=== PATIENT | female | born 1985 | race Caucasian/White ===

== ENCOUNTER → 2018-06-26 | Outpatient (CLI) | payer OTHER, SELFPAY ==
[2018-06-26 11:10] VITALS: BMI 27.6
[2018-07-03 11:22] LABS: HPV APTIMA, High Risk Negative (Negative)
== END | disposition home or self-care (01) ==
PROVIDERS: Family Provider Family Medicine; PCP Family Medicine; Visit Provider Nurse Practitioner Women's Health
DX: Z12.4 Encounter for screening for malignant neoplasm of cervix (principal)
CPT/HCPCS: 87624; 88175; G0145

== ENCOUNTER → 2020-01-04 | Outpatient (CLI) | payer OTHER, SELFPAY ==
[2019-12-27 08:33] VITALS: BMI 24.6
--- NOTE | 2020-01-04 09:01 | BI_ITS ---
MAMMOGRAPHY - BILATERAL DIAGNOSTIC REASON FOR EXAM: Female, 34 years old. One-year history of left breast lump. Occasional tenderness. PERTINENT HISTORY: Non-contributory. TECHNIQUE: Digital bilateral breast christi (3D mammographic acquisition) in the CC and MLO projections. 2-D mediolateral oblique (MLO) and craniocaudad (CC) views of both breasts were obtained. CAD: Full Field Digital Mammography with Computer Added Detection was performed. COMPARISON: None. Baseline examination. FINDINGS: Breast Composition: The breasts are extremely dense, which lowers the sensitivity of mammography. There are no dominant masses or suspicious calcifications. No other significant abnormalities are identified. BI/DIAG MAMM W/CAD, BILAT IMPRESSION: Negative diagnostic mammogram. With the patient''s history of a tender left breast lump, correlation with ultrasound is recommended. ASSESSMENT CATEGORY: BIRADS Category 0: Incomplete. Need additional imaging evaluation. A letter regarding these results will be sent to the patient by the facility within 30 days. Approximately 10% of breast cancers are not detected by mammography. A normal mammogram should not delay biopsy of a clinically suspicious abnormality. Electronically Signed: Darek Quesada, at 10:14 EDT , Service support ,
--- NOTE | 2020-01-04 09:01 | US_ITS ---
STUDY: ULTRASOUND BREAST - LEFT REASON FOR EXAM: Female, 34 years old. Palpable lump left breast. TECHNIQUE: Axial and longitudinal images of the LEFT breast were performed with a high resolution ultrasound transducer. # OF IMAGES: 13 COMPARISON: None. FINDINGS: LEFT Breast: The palpable abnormality corresponds to a 1.2 cm x 1 cm x 0.6 cm well-defined hypoechoic solid nodule at the 1 o''clock position of the breast at 3 cm from nipple. This most likely represents a fibroadenoma. Biopsy is recommended. US/Breast Limited Unilateral IMPRESSION: The palpable abnormality corresponds to a well-defined hypoechoic solid nodule measuring 1.2 cm x 1 cm x 0.6 cm. Tissue diagnosis is recommended. ASSESSMENT CATEGORY: BIRADS Category 4: Suspicious - Biopsy Should Be Considered. A letter regarding these results will be sent to the patient by the facility within 30 days. Electronically Signed: Darek Quesada, at 15:25 EDT , Service support ,
== END | disposition home or self-care (01) ==
LOC: OPBI 09:00
PROVIDERS: PCP Family Medicine; Referring Provider Nurse Practitioner Women's Health; Visit Provider Nurse Practitioner Women's Health
DX: N63.20 Unspecified lump in the left breast, unspecified quadrant (principal)
CPT/HCPCS: 76642; 77062; 77066; G0279

== ENCOUNTER → 2020-05-01 10:22 | Outpatient (CLI) | payer OTHER, SELFPAY ==
[2020-05-01 09:51] VITALS: BMI 24.7
[2020-05-01 10:46] LABS: Absolute Lymphocyte Count 1.98 X10^3/uL (0.83-4.51); Absolute Neutrophil Count 2.3 X10^3/uL (2.0-7.7); Basophil# 0.06 X10^3/uL; Basophil% 1.2 % (0-1); Eosinophil# 0.29 X10^3/uL; Eosinophils% 5.7 % (0-5); Hematocrit 40.2 % (37-47); Lymphocyte # 1.98 X10^3/ul (4.0); Lymphocyte % 39.1 % (19-41); Mean Corp Hgb Conc 32.3 g/dL (32-36); Mean Corpuscular Hgb 29.3 pg (27.0-32.0); Mean Corpuscular Volume 90.5 fL (81-99); Mean Platelet Vol. 9.7 fl (6.2-12.0); Monocyte# 0.41 X10^3/uL; Monocyte% 8.1 % (0-10); NRBC Flagged by Analyzer 0 % (0-5); Neutrophil # 2.31 X10^3/uL (2.7-7.7); Neutrophil % 45.7 % (47-70); Platelet Count 352 K/mm3 (150-450); RBC Distribution Width CV 13.4 % (11.6-14.6); RBC Distribution Width SD 44.6 fl (35.1-43.9); Red Blood Count 4.44 M/mm3 (4.2-5.4); White Blood Count 5.1 K/mm3 (4.4-11.0)
[2020-05-01 11:07] LABS: Hemoglobin A1c 5.1 % (3.8-5.6)
[2020-05-01 11:26] LABS: T3 Total - Triiodothyronine 0.88 ng/mL (0.6-1.81); Vitamin D,25 Hydroxy 22.6 ng/mL
[2020-05-01 11:44] LABS: ALB/GLOB Ratio 1.3 RATIO (0.9-2.4); AST(SGOT) 19 U/L (15-37); Alanine Aminotransfer ALT/SGPT 23 U/L (13-56); Albumin, Serum 4.5 g/dL (3.2-5.0); Alkaline Phosphatase 50 U/L (45-117); Anion Gap 5 (5-15); BUN 11 mg/dL (7-18); BUN/Creat Ratio 13.6 RATIO (10-20); Bilirubin, Direct 0.09 mg/dL (0.00-0.30); Calcium,Total 9.6 mg/dL (8.5-10.1); Chloride 104 mmol/L (98-107); Cholesterol 266 mg/dL (200); Creatinine, Serum 0.81 mg/dL (0.55-1.02); EST Glomerular Filtration Rate 87 mL/min (>60); Est Glom Filt Rate - Afr Amer 105 mL/min (>60); Globulin 3.4 g/dL (2.2-4.2); Glucose 89 mg/dL (74-106); High Density Lipoprotein 100 mg/dL; Potassium 4.2 mmol/L (3.5-5.1); Protein, Total 7.9 g/dL (6.4-8.2); Sodium Level 138 mmol/L (136-145); T4 Total, Thyroxin 7.1 ug/dL (4.8-13.9); Thyroid Stim Hormone (TSH) 0.95 uIU/mL (0.358-3.74); Triglycerides 86 mg/dL; Very Low Density Lipoprotein 17 mg/dL (5-40)
== END ==
PROVIDERS: PCP Family Medicine
DX: Z79.899 Other long term (current) drug therapy (principal)
CPT/HCPCS: 36415; 80053; 80061; 82248; 82306; 83036; 84436; 84443; 84480; 85025

== ENCOUNTER → 2020-09-04 | Outpatient (CLI) | payer OTHER, SELFPAY ==
[2020-09-04 13:34] VITALS: BMI 24.6
== END | disposition home or self-care (01) ==
PROVIDERS: PCP Family Medicine; Visit Provider Obstetrics & Gynecology
DX: R30.9 Painful micturition, unspecified (principal)
CPT/HCPCS: 87086; 87088; 87186

== ENCOUNTER → 2020-12-26 12:00 | Outpatient (CLI) | payer OTHER, SELFPAY ==
[2020-12-26 15:38] LABS: ALB/GLOB Ratio 1.4 RATIO (0.9-2.4); AST(SGOT) 15 U/L (15-37); Alanine Aminotransfer ALT/SGPT 22 U/L (13-56); Albumin, Serum 4.6 g/dL (3.2-5.0); Alkaline Phosphatase 41 U/L (45-117); Anion Gap 8 (5-15); BUN 10 mg/dL (7-18); BUN/Creat Ratio 12.7 RATIO (10-20); Calcium,Total 9.4 mg/dL (8.5-10.1); Chloride 103 mmol/L (98-107); Creatinine, Serum 0.79 mg/dL (0.55-1.02); EST Glomerular Filtration Rate 89 mL/min (>60); Est Glom Filt Rate - Afr Amer 108 mL/min (>60); Globulin 3.3 g/dL (2.2-4.2); Glucose 91 mg/dL (74-106); Potassium 3.6 mmol/L (3.5-5.1); Protein, Total 7.9 g/dL (6.4-8.2); Sodium Level 138 mmol/L (136-145); Thyroid Stim Hormone (TSH) 0.88 uIU/mL (0.358-3.74)
[2020-12-26 17:25] LABS: Basophil# 0.04 X10^3/uL; Basophil% 0.9 % (0-1); Eosinophil# 0.02 X10^3/uL; Eosinophils% 0.5 % (0-5); Hematocrit 41.3 % (37-47); Hemoglobin 13.5 g/dL (12.0-15.0); Lymphocyte % 40.2 % (19-41); Mean Corp Hgb Conc 32.7 g/dL (32-36); Mean Corpuscular Hgb 30.4 pg (27.0-32.0); Mean Platelet Vol. 11.3 fl (6.2-12.0); Monocyte# 0.49 X10^3/uL; Monocyte% 11.6 % (0-10); NRBC Flagged by Analyzer 0 % (0-5); Neutrophil # 1.98 X10^3/uL (2.7-7.7); Neutrophil % 46.8 % (47-70); Platelet Count 339 K/mm3 (150-450); RBC Distribution Width CV 13.2 % (11.6-14.6); RBC Distribution Width SD 44.9 fl (35.1-43.9); Red Blood Count 4.44 M/mm3 (4.2-5.4); White Blood Count 4.2 K/mm3 (4.4-11.0)
[2020-12-26 17:52] LABS: Erythrocyte Sedimentation Rate 3 mm/hr (0-30)
== END ==
LOC: MTLAB 12:01
PROVIDERS: PCP Family Medicine; Referring Provider Family Medicine; Visit Provider Family Medicine
DX: R63.4 Abnormal weight loss (principal)
CPT/HCPCS: 36415; 80053; 84443; 85025; 85652

== ENCOUNTER 2021-07-27 08:54 | Emergency (ER) | payer OTHER, SELFPAY ==
[2021-07-27 08:55] VITALS: BP 125/88; PULSE 73; RESP 17; TEMP 37; O2SAT 100; BMI 22.9
--- NOTE | 2021-07-27 09:17 | CT_ITS ---
STUDY: CT CERVICAL SPINE WITHOUT CONTRAST REASON FOR EXAM: Female, 36 years old. Injury/Pain RADIATION DOSAGE (If Supplied By Facility): CTDIvol = ( 16.07 ) mGy, DLP = ( 344.10 ) mGycm TECHNIQUE: High resolution transaxial imaging was performed without contrast material. Sagittal and coronal images were reconstructed. Individualized dose optimization techniques were used for this CT. COMPARISON: None FINDINGS: Normal craniovertebral junction. Normal anterior atlantoaxial articulation. Normal odontoid process. Normal cervical lordosis. Normal vertebral bodies and posterior osseous elements. C2-3: Normal endplates. Normal disc height and morphology. Normal central canal and intervertebral neuroforamina. C3-4: Normal endplates. Normal disc height and morphology. Normal central canal and intervertebral neuroforamina. C4-5: Normal endplates. Normal disc height and morphology. Normal central canal and intervertebral neuroforamina. C5-6: Normal endplates. Normal disc height and morphology. Normal central canal and intervertebral neuroforamina. C6-7: Normal endplates. Normal disc height and morphology. Normal central canal and intervertebral neuroforamina. C7-T1: Normal endplates. Normal disc height and morphology. Normal central canal and intervertebral neuroforamina. Normal visualized soft tissue structures. CT/Spine Cervical without Contras IMPRESSION: Normal unenhanced CT examination of the cervical spine. Electronically Signed: Darek Quesada MD at 10:14 EDT ,
--- NOTE | 2021-07-27 09:17 | CT_ITS ---
STUDY: CT BRAIN WITHOUT CONTRAST REASON FOR EXAM: Female, 36 years old. Recent head injury. Dizziness and confusion. Light sensitivity. RADIATION DOSAGE (If Supplied By Facility): CTDIvol = ( 44.99 ) mGy, DLP = ( 762.36 ) mGycm TECHNIQUE: Transaxial CT imaging of the brain was performed without administration of intravenous contrast material. Individualized dose optimization techniques were used for this CT. COMPARISON: No relevant priors. FINDINGS: Normal soft tissue structures. Normal calvarium. Normal size ventricles and extra-axial spaces for the patient''s age. Normal white matter tracts of the cerebral hemispheres. Normal basal ganglia and thalami. Normal brainstem. Normal cerebellum. There is no intracranial hemorrhage. There are no findings of an acute ischemic infarction. There is a 1.2 cm x 2.4 cm polyp or retention cyst at the base of the right maxillary sinus. CT/Brain/Head without Contrast IMPRESSION: Normal unenhanced CT scan of the brain. 1.2 cm x 2.4 cm polyp or retention cyst at the base of the right maxillary sinus. Electronically Signed: Darek Quesada MD at 10:13 EDT ,
[2021-07-27] MEDS: 0.9% Normal Saline 1,000 ML 999 ML IV (09:34)
[2021-07-27] MEDS: Metoclopramide 10 MG/2 ML Vial IV (09:34)
--- NOTE | 2021-07-27 09:59 | EX.ED.GENINJ ---
HPI History of Present Illness Chief Complaint: Head Injury Informant: patient Onset/Context/Timing Onset: Days (5) Mechanism/Context: Blunt Injury Quality of Pain: Dull and Throbbing Location: Right occipital and cervical paraspinal muscles Worsened by: Light Relieved by: Nothing Associated Symptoms Associated Symptoms: Negative for Parasthesias, Weakness, Loss of function, Inability to ambulate, Loss of consciousness and Amnesia Narrative Narrative: Patient presents with a head injury that occurred 5 days ago. Patient states she hit her head on a door frame. Patient denies any loss of consciousness. Patient denies any paresthesias or weakness. Patient admits to some blurry vision and photophobia. Patient admits to some nausea initially but denies any vomiting. Patient states the pain is now radiating into her neck. Patient states her headache is worse with light. Patient describes her pain as dull and throbbing. Patient states nothing seems to help with the pain. [facility] Medical History Anxiety and depression Home Medications cyanocobalamin (vitamin B-12) 500 mcg PO DAILY@0800 01/18/13 [History Last Taken 01/18/13] hydroxyzine HCl 10 mg tablet 10 mg PO TID PRN 12/27/19 [History Last Taken Unknown] multivitamin with minerals 1 tab PO DAILY 12/27/19 [History Last Taken Unknown] lamotrigine 200 mg tablet 200 mg PO BID 05/01/20 [History Last Taken Unknown] Allergy/AdvReac Type Severity Reaction Status Date / Time prednisone AdvReac Swelling Verified 07/27/21 08:55 Family History Grandfather Cancer prostate Grandmother Cancer skin Brother Asthma Surgical History ankle surgery delivery delivered H/O dilation and curettage History of tonsillectomy and adenoidectomy S/P breast biopsy, left Social History Smoking Status: Former smoker alcohol intake: never substance use type: does not use caffeine: Yes frequency: 5-6 times per week seatbelt use: always do you feel safe at home: Yes additional social history: 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[employer] [facility] ROS ROS ED Constitutional Constitutional ED: Denies chills or fever(s) Eyes Eyes: Reports blurry vision; Denies diplopia ENT ENT ED: Denies rhinorrhea or sore throat Cardiovascular Cardiovascular: Denies chest pain or palpitations Respiratory/Chest Respiratory/Chest: Denies cough or dyspnea Gastrointestinal Gastrointestinal: Reports nausea; Denies vomiting Genitourinary Genitourinary ED: Denies dysuria or hematuria Musculoskeletal Musculoskeletal: Denies back pain or neck pain Integumentary Denies abscess or rash Neurologic Neurologic: Reports headache(s); Denies weakness Allergic/Immunologic Allergic/Immunologic ED: Denies mouth swelling or urticaria EXAM Physical Exam Const Vital Signs: 07/27/21 08:55 07/27/21 09:36 Temperature 98.6 F Temperature Source Temporal Pulse Rate 73 Respiratory Rate 17 Respiratory Effort Normal Non-Labored Respiratory Depth Normal Respiratory Pattern Normal Blood Pressure 125/88 H Blood Pressure Mean 100 Pulse Ox 100 Oxygen Delivery Method Room Air Positive well nourished and well developed General Appearance ED: well developed and NAD HEENT HEENT Narrative: There is tenderness over the right occipital area. There is no bony crepitance or step-off. There is no hematoma noted. tenderness Neck No full ROM Neck Narrative: There is tenderness over the right cervical paraspinal muscles. There is no midline tenderness. There is no bony crepitance or step-off. Range of motion was limited in all motions of the cervical spine secondary to pain. General: tenderness Neuro oriented x3, CN's II-XII intact bilaterally, moves all extremities, no focal motor deficits and no sensory deficits noted Sensorium / Orientation: alert Psych mental status grossly normal Skin no rashes or lesions noted MDM MDM MDM Narrative Medical decision making narrative: Patient was given a dose of Reglan here. CT scan of the brain was obtained. There is no acute intracranial abnormality. This was interpreted by the radiologist and reviewed by myself. CT scan of the cervical spine was obtained. There is no acute fracture or spondylolisthesis. This was also interpreted by the radiologist and reviewed by myself. Patient was advised of her findings. Patient was instructed to rest in a dark quiet room. Patient was instructed to limit her screen time. Patient was instructed to drink plenty of fluids. Patient was instructed to follow-up with her primary care physician in 3 to 5 days for reevaluation. Patient understood and was agreeable with the plan. All questions were answered. Radiography Diagnostic Testing: Clinical Impression(s) from Imaging Studies Brain CT 07/27/21 09:17 IMPRESSION: Normal unenhanced CT scan of the brain. 1.2 cm x 2.4 cm polyp or retention cyst at the base of the right maxillary sinus. Electronically Signed: Darek Quesada MD at 10:13 EDT , Cervical Spine CT 07/27/21 09:17 IMPRESSION: Normal unenhanced CT examination of the cervical spine. Electronically Signed: Darek Quesada MD at 10:14 EDT , Discharge Plan Triage Chief Complaint: Head Injury ED Provider: Chandrakant Anthony Dx/Rx/DC Orders Clinical Impression: Concussion, Head injury Instructions: ED Concussion Prescriptions: No Action lamotrigine [Lamictal] 200 mg tablet 200 mg PO BID RF: 0 multivitamin with minerals [Hair,Skin and Nails] Tablet 1 tab PO DAILY RF: 0 hydroxyzine HCl 10 mg tablet 10 mg PO TID PRN (Reason: Anxiety) RF: 0 cyanocobalamin (vitamin B-12) 500 MCG tablet 500 mcg PO DAILY@0800 RF: 0 Primary Care Provider: Jeovany Argueta Referrals: Jeovany Argueta [Primary Care Provider] - 5-7 Days Disposition Disposition: Home, Self Care
== END 2021-07-27 11:32 | disposition home or self-care (01) ==
PROVIDERS: Emergency Provider Emergency Medicine; PCP Student in an Organized Health Care Education/Training Program; Visit Provider Emergency Medicine
DX: S06.0X0A Concussion without loss of consciousness, initial encounter (principal); Z87.891 Personal history of nicotine dependence; W22.09XA Striking against other stationary object, initial encounter; Y93.9 Activity, unspecified; Y99.9 Unspecified external cause status; Y92.9 Unspecified place or not applicable
CPT/HCPCS: 70450; 72125; 96361; 96374; 99283; J7030; A4216

== ENCOUNTER → 2021-12-05 | Outpatient (CLI) | payer OTHER, SELFPAY ==
[2021-12-07 08:01] LABS: PTHIN 34.8 pg/mL (18.4-80.1)
[2021-12-08 15:05] LABS: Anti-Thyroglobulin AB < 1.0 IU/mL (0.0-0.9); Thyroglobulin, Serum Qt. 10.5 ng/mL (1.5-38.5); Thyroid Peroxidase AB < 8 IU/mL (0-34)
== END | disposition home or self-care (01) ==
LOC: LAB 10:38
PROVIDERS: PCP Student in an Organized Health Care Education/Training Program; Visit Provider Physician Assistant
DX: L80 Vitiligo (principal); L82.1 Other seborrheic keratosis; L81.4 Other melanin hyperpigmentation; D18.01 Hemangioma of skin and subcutaneous tissue; L57.8 Other skin changes due to chronic exposure to nonionizing radiation; L23.7 Allergic contact dermatitis due to plants, except food; L81.8 Other specified disorders of pigmentation; D23.72 Other benign neoplasm of skin of left lower limb, including hip; Z71.89 Other specified counseling
CPT/HCPCS: 36415; 83970; 84432; 86376; 86800

== ENCOUNTER 2022-06-25 21:55 | Observation (INO) | payer OTHER, SELFPAY ==
[2022-06-25 21:56] VITALS: BP 122/72; PULSE 68; RESP 16; TEMP 36.6; O2SAT 100; BMI 21.9
--- NOTE | 2022-06-25 22:17 | CT_ITS ---
EXAM: CT ABDOMEN AND PELVIS WITH INTRAVENOUS CONTRAST CLINICAL INDICATION: RLQ pain TECHNIQUE: Helically acquired images were obtained of the abdomen and pelvis with intravenous contrast. This CT exam was performed using one or more of the following dose reduction techniques: automated exposure control, adjustment of the mA and/or kV according to patient size, and/or use of iterative reconstruction technique. This report was created using [employer] report generation technology. CONTRAST: 100 cc of Isovue-370 IV. RADIATION DOSE: CTDIvol = 10.81 mGy, DLP = 401.62 mGy-cm. COMPARISON: None. FINDINGS: LOWER THORAX: Unremarkable. Lung bases are clear. No cardiomegaly. No significant pericardial effusion. ABDOMEN: LIVER: Unremarkable. Homogeneous. No focal mass. GALLBLADDER AND BILE DUCTS: Unremarkable. No calcified gallstones. No gallbladder distention or wall edema. No intra- or extrahepatic biliary ductal dilation. PANCREAS: Unremarkable. No focal cystic or solid mass. SPLEEN: Unremarkable. Normal size without focal cystic or solid mass. ADRENALS: Unremarkable. No nodules. KIDNEYS AND URETERS: Unremarkable. Normal renal size and position. No hydronephrosis. STOMACH AND BOWEL: Unremarkable. No stomach or bowel distention. No focal inflammatory change. PELVIS: APPENDIX: The appendix is diffusely very distended measuring up to 1.8 cm in diameter. Mural calcifications are seen in the proximal appendix. BLADDER: Unremarkable. REPRODUCTIVE: Unremarkable as visualized. No mass. ABDOMEN and PELVIS: INTRAPERITONEAL SPACE: Small amount of nonspecific low-density free fluid in the low pelvis. No free air. BONES/JOINTS: Unremarkable. No suspicious lytic or blastic abnormality. SOFT TISSUES: Unremarkable. No discrete abdominal or pelvic wall hernia. VASCULATURE: Unremarkable. Abdominal aorta is non-dilated. LYMPH NODES: Unremarkable. No enlarged lymph nodes. CT/Abdomen/Pelvis W IV Cont ONLY IMPRESSION: Abnormal appendix which is very distended with mural calcifications in the proximal lumen. 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 N.B. : The above Results were Read Back by Clarke Moffett MD to Neil Dunne DO, and understanding confirmed on 06/25/2022 23:38:57 (ET). Electronically Signed: Clarke Moffett MD at 23:44 EDT ,
[2022-06-25] MEDS: 0.9% Normal Saline 1,000 ML 999 ML IV (22:30)
[2022-06-25] MEDS: Ketorolac 30 MG/ML Syringe IV (22:31)
[2022-06-25] MEDS: Ondansetron 4 MG/2 ML Vial IV (22:32)
[2022-06-25 22:36] LABS: Mucous, Urine 0 SEEN /hpf (<or=2+); Red Blood Cells-Urine 0 SEEN /hpf (0-5); White Blood Cells 0 SEEN /hpf (0-5)
[2022-06-25 22:37] LABS: Color, Urine Yellow (Yellow); Glucose, Dipstick Normal (Normal); Ketone-Dipstick 5 mg/dl (Negative); Leukocyte Esterase-Dipstick Negative /ul (Negative); Nitrite-Dipstick Negative (Negative); Occult Blood-Urine Negative /ul (Negative); Protein-Dipstick Negative (Negative); Urine Bilirubin Dipstick Negative (Negative); Urine Clarity Clear (Clear); Urine Urobilinogen Normal (Normal)
[2022-06-25 22:42] LABS: Absolute Lymphocyte Count 2.03 X10^3/uL (0.83-4.51); Absolute Neutrophil Count 12.6 X10^3/uL (2.0-7.7); Basophil# 0.05 X10^3/uL; Basophil% 0.3 % (0-1); Eosinophil# 0.07 X10^3/uL; Eosinophils% 0.5 % (0-5); Hematocrit 40.6 % (37-47); Hemoglobin 13.6 g/dL (12.0-15.0); Lymphocyte # 2.03 X10^3/ul (0.83-4.51); Lymphocyte % 13.2 % (19-41); Mean Corp Hgb Conc 33.5 g/dL (32-36); Mean Corpuscular Hgb 29.6 pg (27.0-32.0); Mean Corpuscular Volume 88.3 fL (81-99); Mean Platelet Vol. 10.1 fl (6.2-12.0); Monocyte# 0.62 X10^3/uL; NRBC Flagged by Analyzer 0 % (0-5); Neutrophil # 12.58 X10^3/uL (2.7-7.7); Neutrophil % 81.7 % (47-70); Platelet Count 386 K/mm3 (150-450); RBC Distribution Width SD 41.8 fl (35.1-43.9); White Blood Count 15.4 K/mm3 (4.4-11.0)
[2022-06-25] MEDS: Haloperidol Lactate 5 MG/ML Vial IV (22:42)
[2022-06-25 22:48] LABS: Bacteria 1+ /hpf (None Seen); Internal QC Validated? YES +Cl - CLEAR BKGD; Pregnancy, Urine Negative Negative; Squamous Epithelial Cells - UA 0-5 SEEN /hpf (5-10)
[2022-06-25 22:59] LABS: AST(SGOT) 18 U/L (15-37); Alanine Aminotransfer ALT/SGPT 25 U/L (13-56); Albumin, Serum 4.5 g/dL (3.2-5.0); Alkaline Phosphatase 42 U/L (45-117); Bilirubin, Direct 0.16 mg/dL (0.00-0.30); Globulin 2.9 g/dL (2.2-4.2); Protein, Total 7.4 g/dL (6.4-8.2)
[2022-06-25 23:01] LABS: Anion Gap 7 (5-15); BUN 8 mg/dL (7-18); Calcium,Total 9.7 mg/dL (8.5-10.1); Chloride 105 mmol/L (98-107); Creatinine, Serum 0.89 mg/dL (0.55-1.02); EST Glomerular Filtration Rate 76 mL/min (>60); Est Glom Filt Rate - Afr Amer 93 mL/min (>60); Estimated Creatinine Clearance 76.19 ml/min; Glucose 121 mg/dL (74-106); Lipase 38 U/L (13-75); Potassium 3.3 mmol/L (3.5-5.1); Sodium Level 137 mmol/L (136-145)
[2022-06-25] MEDS: HYDROmorphone 1 MG/ML Syringe IV (23:17)
[2022-06-25 23:36] LABS: Lactic Acid 1.6 mmol/L (0.4-1.9)
[2022-06-26] VITALS (13 sets, daily range): BP systolic 96–128; BP diastolic 60–85; PULSE 48–83; RESP 16–18; TEMP 36.3–37.5; O2SAT 96–100; BMI 22.4
--- NOTE | 2022-06-26 | APP_PTH ---
PATIENT: HERNO MAKI LOC: MS3 U#:[id number] AGE/SX: 37/F ROOM: [facility] RE06/26/[address]: Dr. Clarke Mendoza MD : 1985 BED: 1 DIS: 06/27/2022 SPEC #: [id number] RECD: 06/28/22 07:42 STATUS: MERISSA RESukhdev #: [id number] KEKE: 06/26/22 00:[address]: Clarke Mendoza DEPT: SURGICAL PATHOLOGY RECD BY: Erasmo Marie ENTERED: 06/28/22 11:34 SP TYPE: APPENDIX OTHR DR: Dr. Jeovany Argueta, DO Tissues: Appendix, NOS Procedures: Surgery Specimen Level III HEADER OPERATION: Laparoscopic appendectomy PRE-OP DIAGNOSIS: Mucocele of appendix, acute appendicitis TISSUE SUBMITTED: Appendix MICROSCOPIC DIAGNOSIS Appendix, appendectomy: Acute appendicitis. Acute serositis. AM:seth 06/29/2022 COMMENT Case has been reviewed in consultation with Dr. Knight who concurs with the above diagnosis. IDC:SJ MICROSCOPIC DESCRIPTION Slides are reviewed. GROSS DESCRIPTION Received in fixative is one container labeled with the patient's name and designated appendix. The specimen consists of a markedly dilated appendix measuring 16.0 cm in length and 2.5 cm in average diameter. No gross perforations are evident. Serial sections reveal abundant fecal material. No mass lesion is identified. Office Administration sections are submitted in four cassettes. / AM:rg 06/28/2022 TC:2 CPT: 74822
--- NOTE | 2022-06-26 01:40 | EDS_ITS ---
HPI History of Present Illness Chief Complaint: Abd Pain Narrative Narrative: Patient is a 37-year-old female with past medical history of anxiety depression and migraine headache. She states that today around lunchtime she noted that she was developing generalized abdominal discomfort. She states as time passed the pain became more intense and migrated to her right lower quadrant and she developed bouts of nausea and loose stool/diarrhea. She states this evening the pain is so severe that she has concern for possible infection and with this comes in for evaluation. Patient denies any history of intestinal disorder such as ulcerative colitis or Crohn's disease. She denies any known sick contacts. She denies any previous abdominal surgery [facility] Medical History (Updated 06/26/22 @ 08:[address] Neil Dunne, DO) Alcohol abuse Anxiety Anxiety and depression Asthma Back pain due to injury Depression Former smoker History of steroid therapy Injury of head and neck Migraines Substance abuse Home Medications cyanocobalamin (vitamin B-12) 500 mcg tablet 500 mcg PO DAILY@0800 REPLACEMENT 01/18/13 [History Last Taken 01/18/13] hydroxyzine HCl 10 mg tablet 10 mg PO TID PRN Anxiety 12/27/19 [History Last Taken Unknown] multivitamin with minerals (Hair,Skin and Nails tablet) 1 tab PO DAILY 12/27/19 [History Last Taken Unknown] lamotrigine 200 mg tablet (Lamictal) 200 mg PO BID 05/01/20 [History Last Taken Unknown] topiramate 25 mg tablet 25 mg PO QHS 06/25/22 [History Last Taken Unknown] Allergy/AdvReac Type Severity Reaction Status Date / Time prednisone AdvReac Swelling Verified 06/25/22 21:55 Family History Grandfather Cancer prostate Grandmother Cancer skin Brother Asthma Surgical History ankle surgery delivery delivered H/O dilation and curettage History of tonsillectomy and adenoidectomy S/P breast biopsy, left Social History Smoking Status: Former smoker alcohol intake: never substance use type: does not use caffeine: Yes frequency: 5-6 times per week seatbelt use: always do you feel safe at home: Yes 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[employer] ROS ROS ED Constitutional Constitutional ED: Denies chills or fever(s) ENT ENT ED: Denies sore throat Cardiovascular Cardiovascular: Denies chest pain Respiratory/Chest Respiratory/Chest: Denies cough or dyspnea Gastrointestinal Gastrointestinal: Reports abdominal pain, diarrhea and nausea; Denies vomiting Genitourinary Genitourinary ED: Denies dysuria or hematuria Musculoskeletal Musculoskeletal: Denies myalgias Integumentary Denies rash Neurologic Neurologic: Denies weakness Hematologic/Lymphatic Hematologic/Lymphatic: Denies easy bleeding or easy bruising EXAM Physical Exam Const Vital Signs: 06/25/22 21:56 Temperature 97.9 F Temperature Source Temporal Pulse Rate 68 Respiratory Rate 16 Blood Pressure 122/72 H Blood Pressure Mean 88 Pulse Ox 100 Oxygen Delivery Method Room Air Positive well nourished and well developed General Appearance ED: well developed HEENT Reports moist mucous membranes Eyes PERRL and EOMs intact bilaterally General Eye ED: Negative for scleral icterus Neck supple Resp normal respiratory effort and clear to auscultation bilaterally Cardio regular rate and regular rhythm Rate: other Other Details: Radial pulses are plus 2 out of 4 bilaterally are equal and symmetric GI non-distended GI Narrative: Abdomen is soft and nondistended with normal active bowel sounds. However patient does have voluntary guarding with rebound tenderness in the right lower quadrant. Positive heel strike psoas and obturator signs as well. No pulsatile mass or fluid wave Auscultation: normoactive bowel sounds Palpation: soft Back/Spine Back/Spine Narrative: Mild right CVA pain noted Extremity normal to inspection Neuro oriented x3 and CN's II-XII intact bilaterally Sensorium / Orientation: alert Psych mental status grossly normal Skin no rashes or lesions noted General Skin Exam: Negative for jaundice MDM MDM MDM Narrative Medical decision making narrative: Patient presented to the ER afebrile and normotensive but had generalized abdominal pain that progressed to the right lower quadrant with bouts of loose stool concerning for acute appendicitis. With this she also had rigidity and guarding further indicating intestinal pathology. There is concern that this could be a possible intestinal infection versus incarcerated hernia versus ovarian pathology such as ovarian cyst or torsion or bladder dysfunction such as kidney stone pyelonephritis or UTI. With this differential basic blood work and a urine sample were obtained and patient was sent to CT scan for a further evaluation of her abdominal pain. Labs showed leukocytosis but otherwise no clinically significant finding. CT scan showed a dilated appendix concerning for acute appendicitis secondary to mucocele. Secondary to this finding general surgery was contacted. They evaluated the patient in the ER and recommended admission to their service for patient to undergo appendectomy later this morning. Plan of care was discussed with the patient she is agreeable to it and was started on Zosyn secondary to the infectious process. History & Record Review Discussion w/independent historian: Patient and Family Lab Data Attestation: I reviewed the patient's lab results. Labs: Laboratory Results - last 24 hr 06/25/22 06/25/22 06/25/22 22:20 22:20 22:20 WBC 15.4 H RBC 4.60 Hgb 13.6 Hct 40.6 MCV 88.3 MCH 29.6 MCHC 33.5 RDW Std Deviation 41.8 RDW Coeff of Felicitas 13.0 Plt Count 386 MPV 10.1 Immature Gran % (Auto) 0.300 Neut % (Auto) 81.7 H Lymph % (Auto) 13.2 L Hyde % (Auto) 4.0 Eos % (Auto) 0.5 Baso % (Auto) 0.3 Absolute Neuts (auto) 12.6 H Absolute Lymphs (auto) 2.03 Nucleated RBC % 0 Sodium 137 Potassium 3.3 L Chloride 105 Carbon Dioxide 25.0 Anion Gap 7 BUN 8 Creatinine 0.89 Estim Creat Clear Calc 76.19 Est GFR (MDRD) Af Amer 93 Est GFR (MDRD) Non-Af 76 BUN/Creatinine Ratio 9.0 L Glucose 121 H Lactic Acid Calcium 9.7 Total Bilirubin 0.50 Direct Bilirubin 0.16 AST 18 ALT 25 Alkaline Phosphatase 42 L Total Protein 7.4 Albumin 4.5 Globulin 2.9 Lipase 38 Urine Color Urine Clarity Urine pH Ur Specific Greenfield Urine Protein Urine Glucose (UA) Urine Ketones Urine Occult Blood Urine Nitrite Urine Bilirubin Urine Urobilinogen Ur Leukocyte Esterase Urine RBC Urine WBC Ur Squamous Epith Cells Urine Bacteria Urine Mucus Urine Test 06/25/22 06/25/22 22:20 22:54 WBC RBC Hgb Hct MCV MCH MCHC RDW Std Deviation RDW Coeff of Felicitas Plt Count MPV Immature Gran % (Auto) Neut % (Auto) Lymph % (Auto) Hyde % (Auto) Eos % (Auto) Baso % (Auto) Absolute Neuts (auto) Absolute Lymphs (auto) Nucleated RBC % Sodium Potassium Chloride Carbon Dioxide Anion Gap BUN Creatinine Estim Creat Clear Calc Est GFR (MDRD) Af Amer Est GFR (MDRD) Non-Af BUN/Creatinine Ratio Glucose Lactic Acid 1.6 Calcium Total Bilirubin Direct Bilirubin AST ALT Alkaline Phosphatase Total Protein Albumin Globulin Lipase Urine Color Yellow Urine Clarity Clear Urine pH 9.0 Ur Specific [place] 1.020 Urine Protein Negative Urine Glucose (UA) Normal Urine Ketones 5 H Urine Occult Blood Negative Urine Nitrite Negative Urine Bilirubin Negative Urine Urobilinogen Normal Ur Leukocyte Esterase Negative Urine RBC 0 SEEN Urine WBC 0 SEEN Ur Squamous Epith Cells 0-5 SEEN Urine Bacteria 1+ Urine Mucus 0 SEEN Urine Test Negative Radiography Diagnostic Testing: Clinical Impression(s) from Imaging Studies Abdomen/Pelvis CT 06/25/22 22:17 IMPRESSION: Abnormal appendix which is very distended with mural calcifications in the proximal lumen. 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 N.B. : The above Results were Read Back by Clarke Moffett MD to Neil Dunne DO, and understanding confirmed on 06/25/2022 23:38:57 (ET). Electronically Signed: Clarke Moffett MD at 23:44 EDT , ADDENDUM: 06/25/22 2351 IMPRESSION: Abnormal appendix which is very distended with mural calcifications in the proximal lumen. 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 N.B. : The above Results were Read Back by Clarke Moffett MD to Neil Dunne DO, and understanding confirmed on 06/25/2022 23:38:57 (ET). 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
--- NOTE | 2022-06-26 01:48 | PCM.HP.STD ---
HPI - General General Date of Service: 06/26/22 Chief Complaint: Acute onset right lower quadrant abdominal pain HPI Narrative HERON MAKI, is a 37 F who presents to [facility] with complaints of acute onset right lower quadrant abdominal pain that began yesterday and has been associated with some loose stools. Patient notes some associated chills as well. She notes that her loose stools have preceded the pain by a couple of weeks and confirms some subjective weight loss (she reports that her clothing is fitting baggy, but states that she does not routinely weigh herself). ER work-up is notable for CBC that demonstrates a leukocytosis of over 15,[address] imaging concerning for appendiceal mucocele given dilation of the appendix of up to 1.8 cm. Radiology also notes some mural calcifications. Patient states that she normally enjoys a active lifestyle and is relatively healthy at baseline. Her only medications are taken for some mental health diagnoses. Surgically, patient has a history of excisional breast biopsy as well as a D&C and . Patient denies any awareness of any familial cancer history. She admits, however, that she is estranged from her father and her mother is . [facility] Medical History (Updated 06/26/22 @ 01:[address] Clarke Mendoza MD) Anxiety and depression Home Medications cyanocobalamin (vitamin B-12) 500 mcg tablet 500 mcg PO DAILY@0800 01/18/13 [History Last Taken 01/18/13] hydroxyzine HCl 10 mg tablet 10 mg PO TID PRN Anxiety 12/27/19 [History Last Taken Unknown] multivitamin with minerals (Hair,Skin and Nails tablet) 1 tab PO DAILY 12/27/19 [History Last Taken Unknown] lamotrigine 200 mg tablet (Lamictal) 200 mg PO BID 05/01/20 [History Last Taken Unknown] topiramate 25 mg tablet 25 mg PO QHS 06/25/22 [History Last Taken Unknown] Allergy/AdvReac Type Severity Reaction Status Date / Time prednisone AdvReac Swelling Verified 06/25/22 21:55 Family History Grandfather Cancer prostate Grandmother Cancer skin Brother Asthma Surgical History ankle surgery delivery delivered H/O dilation and curettage History of tonsillectomy and adenoidectomy S/P breast biopsy, left Social History Smoking Status: Former smoker alcohol intake: never substance use type: does not use caffeine: Yes frequency: 5-6 times per week seatbelt use: always do you feel safe at home: Yes additional social history: [employer] Vital Signs Vital Signs Vital Signs: 06/25/22 21:56 06/26/22 01:42 06/26/22 01:43 Temperature 97.9 F 97.9 F Temperature Source Temporal Temporal Pulse Rate 68 62 62 Respiratory Rate 16 16 16 Blood Pressure 122/72 H 115/60 115/60 Blood Pressure Mean 88 78 78 Pulse Ox 100 100 100 Oxygen Delivery Method Room Air Room Air Room Air Weight Weight: 128 lb Body Mass Index (BMI) 21.9 Physical Exam Const alert and oriented x3 Constitutional Narrative: Anxious General Appearance: cooperative Resp normal respiratory effort GI GI Narrative: Slender, nondistended, no visible herniation. Soft and exquisitely tender to palpation over McBurney's point. Negative psoas and obturator signs Results Lab / Micro Data Result Diagrams: 06/25/22 22:20 06/25/22 22:20 Labs: Laboratory Results - last 24 hr 06/25/22 22:20: Total Bilirubin 0.50, Direct Bilirubin 0.16, AST 18, ALT 25, Alkaline Phosphatase 42 L, Total Protein 7.4, Albumin 4.5, Globulin 2.9 06/25/22 22:20: WBC 15.4 H, RBC 4.60, Hgb 13.6, Hct 40.6, MCV 88.3, MCH 29.6, MCHC 33.5, RDW Std Deviation 41.8, RDW Coeff of Felicitas 13.0, Plt Count 386, MPV 10.1, Immature Gran % (Auto) 0.300, Neut % (Auto) 81.7 H, Lymph % (Auto) 13.2 L, [place] % (Auto) 4.0, Eos % (Auto) 0.5, Baso % (Auto) 0.3, Absolute Neuts (auto) 12.6 H, Absolute Lymphs (auto) 2.03, Nucleated RBC % 0 06/25/22 22:20: Sodium 137, Potassium 3.3 L, Chloride 105, Carbon Dioxide 25.0, Anion Gap 7, BUN 8, Creatinine 0.89, Estim Creat Clear Calc 76.19, Est GFR (MDRD) Af Amer 93, Est GFR (MDRD) Non-Af 76, BUN/Creatinine Ratio 9.0 L, Glucose 121 H, Calcium 9.7, Lipase 38 06/25/22 22:20: Urine Color Yellow, Urine Clarity Clear, Urine pH 9.0, Ur Specific Jud 1.020, Urine Protein Negative, Urine Glucose (UA) Normal, Urine Ketones 5 H, Urine Occult Blood Negative, Urine Nitrite Negative, Urine Bilirubin Negative, Urine Urobilinogen Normal, Ur Leukocyte Esterase Negative, Urine RBC 0 SEEN, Urine WBC 0 SEEN, Ur Squamous Epith Cells 0-5 SEEN, Urine Bacteria 1+, Urine Mucus 0 SEEN, Urine Test Negative 06/25/22 22:54: Lactic Acid 1.6 Radiology Impression Abdomen/Pelvis CT 06/25/22 22:17 IMPRESSION: Abnormal appendix which is very distended with mural calcifications in the proximal lumen. 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 N.B. : The above Results were Read Back by Clarke Moffett MD to Neil Dunne DO, and understanding confirmed on 06/25/2022 23:38:57 (ET). Electronically Signed: Clarke Moffett MD at 23:44 EDT , ADDENDUM: 06/25/22 2351 IMPRESSION: Abnormal appendix which is very distended with mural calcifications in the proximal lumen. 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 N.B. : The above Results were Read Back by Clarke Moffett MD to Neil Dunne DO, and understanding confirmed on 06/25/2022 23:38:57 (ET). Electronically Signed: Clarke Moffett MD at 23:44 EDT , Assessment & Plan Assessment/Plan (1) Mucocele of appendix: (2) Acute appendicitis: PLAN: Plan Patient presenting with acute onset right lower quadrant pain and concern for acute appendicitis. While her limited pain experience and white count are further suggestive of this diagnosis, her reports of diarrhea, weight loss, and CT imaging suggesting more insidious process. Radiology read of CT is concerning for mucocele of the appendix. I have discussed with patient and her spouse ramifications of this reading and recommended operative intervention. I stated I would plan for a laparoscopic appendectomy, however, intraoperative findings could dictate a need towards open laparotomy if it appeared there is risk for perforation of the mucocele and possible need for more extensive surgery to include possible right hemicolectomy if findings suggested margins could not be obtained with an appendectomy alone and an oncologic resection was indicated. Patient and her spouse appear understandably overwhelmed, but reports their questions have been answered to their satisfaction and they would like to proceed as described. For now we will admit patient to the floor with plan as follows: ? N.p.o. for surgery ? Maintenance IV fluids ? As needed pain Rx ? Continue empiric antibiotics ? Consent for laparoscopic appendectomy with possible exploratory laparotomy, possibility ileocecectomy, possible right hemicolectomy, and other procedures as indicated Charges/Coding Visit Charges Inpatient E&M: 33345 Init Hosp L2
[2022-06-26] MEDS: HYDROmorphone 0.5 MG/0.5 ML SYRINGE IV ×2 (03:19→07:29)
[2022-06-26] MEDS: 0.9% Normal Saline 1,000 ML 125 ML IV ×3 (03:19→23:16)
[2022-06-26] MEDS: Ondansetron 4 MG/2 ML Vial IV (05:29)
[2022-06-26] MEDS: 0.9% Saline Lock 10 ML Syringe IV ×2 (05:30→07:29)
[2022-06-26] MEDS: Metoclopramide 10 MG/2 ML Vial IV (06:36)
--- NOTE | 2022-06-26 08:35 | NURSING ---
off the floor at this time. Brought down to surgery via bed. at her side.
[2022-06-26] MEDS: Bupivacaine Mpf 0.5% 30 ML VIAL (11:10)
--- NOTE | 2022-06-26 11:19 | OP.PCM_ITS ---
Report of Operation Date of Procedure: 06/26/22 Pre-Operative Diagnosis: 1. Acute appendicitis 2. Markedly dilated, fluid-filled appendix per CT imaging concerning for appendiceal mucocele Post-Operative Diagnosis: Same Surgery/Procedure Performed:: Laparoscopic appendectomy with partial cecectomy Description of Surgical Findings:: ? Severely dilated appendix with firm appendiceal base surrounded by simple, serous ascites ? Mildly enlarged periappendiceal lymph nodes without other pathologic features ? Scattered cysts throughout the bilateral adnexa, but otherwise unremarkable ? Normal gross appearance to the anterior surface of the liver Surgeon: Clarke Mendoza spring manufacturing set up technician: Lorna Oviedo Type of Anesthesia: General/Supplemental Anesthesiologist: Chandrakant Song Specimen's removed: Appendix Drains: None Estimated Blood Loss (mL): 20 Description of Procedure: After appropriate identification in the preoperative holding area, the patient was brought to the operating room and placed supine on the operating room table. Antibiotics had been preoperatively administered. Patient was then induced with general endotracheal anesthetic. A Marquez catheter was temporarily placed with sterile technique to decompress the bladder. The abdomen was prepped and draped in usual sterile fashion. Formal timeout was conducted to confirm both the patient and the procedure. A supraumbilical incision was made and carried down to the level of the fascia which was sharply opened. After opening the peritoneum in like fashion a finger sweep was made to confirm position, and a balloon trocar was placed and pneumoperitoneum was established to 15 mmHg. Patient was positioned in Trendelenburg with the left side down. 2 additional 5 mm trocars were placed in the left lower quadrant and suprapubic positions. The peritoneum was inspected and there were no signs of inadvertent injury from this Newman entry. The appendix was visualized with severe distention and mild to moderate inflammation. Simple serous ascites was noted in the vicinity of appendix, but there was no mucinous deposit. Although an inflammatory reaction was present, the patient's thin mesoappendix demonstrated enough mobility that it appeared a laparoscopic approach was feasible. I began distally on the mesoappendix with the harmonic scalpel and began dividing back towards the proximal aspect/the appendiceal base. I was careful to only handle the mesoappendix so as to minimize the risk for appendiceal rupture. There appeared to be significant fullness/firmness of the appendiceal base so I determined I would have to land my staple line within the base of the cecum to obtain a margin of normal tissue. Using blunt laparoscopic dissection, a window was made in the mesoappendix adjacent to the appendiceal base and the intervening tissue of the mesoappendix was divided with application of a laparoscopic harmonic. Overall I tried to stay very close to the appendix as the angle with the terminal ileum was rather acute and I did not want to cause inadvertent thermal injury or impingement of this structure. Using serial division of the mesoappendix, however, this angle opened. Laterally to the appendix I identified some enlarged, but benign-appearing lymph nodes adjacent to the appendiceal base and took care to include these in the specimen, but also remain cognizant of the retroperitoneal iliac and the more superior base of the cecum. Ultimately I gained enough mobility through this careful dissection to land a staple line proximal to the appendiceal base without impinging on the terminal ileum and make a partial transection on the cecal base. This was completed with serial firings of the Endo VIKAS stapler using 3 blue loads. Despite maintaining compression with the stapler, there was some mild oozing from the staple line that dissipated with some irrigation and observation. The appendix was then placed in an Endo Catch bag. The peritoneum was then inspected for any additional signs of pathology. Pictures were taken of a normal-appearing anterior liver surface and bilateral adnexa. After hemostasis was confirmed again along the staple line, I placed the omentum under some traction and used it to cover the surgical site. The appendix was removed from the supra umbilical port site (this required us to sharply enlarged this port site by approximately 1.5 cm to accommodate the specimen without risking rupture or disruption of the bag). Pneumoperitoneum was then evacuated and the supraumbilical port site fascia was closed with #1 Vicryl in interrupted [id number] fashion. The port sites were infiltrated with local anesthetic. The skin of each port site was closed with 4-0 Monocryl in a subcuticular fashion. Steri-Strips and OpSite dressings were applied. Patient tolerated procedure well without any apparent complications. The preoperatively placed Marquez catheter was removed and patient was awoken from general anesthetic without issue and transferred to post anesthesia care unit for ongoing recovery. Complications None Admit VTE Documentation VTE Mechan Device Prophylaxis: SCD's
[2022-06-26] MEDS: Ibuprofen 400 MG Tablet PO ×2 (17:23→23:15)
[2022-06-26] MEDS: Acetaminophen 500 MG Tablet PO (19:51)
[2022-06-26] MEDS: oxyCODONE 5 MG Tablet PO (19:52)
[2022-06-27] MEDS: oxyCODONE 5 MG Tablet PO ×2 (02:22→09:00)
[2022-06-27] MEDS: Acetaminophen 500 MG Tablet PO ×2 (02:22→09:00)
[2022-06-27 04:08] VITALS: BP 130/83; PULSE 66; RESP 17; TEMP 36.8; O2SAT 99
[2022-06-27] MEDS: Ibuprofen 400 MG Tablet PO ×2 (05:51→12:13)
[2022-06-27 05:52] LABS: Absolute Lymphocyte Count 2.47 X10^3/uL (0.83-4.51); Absolute Neutrophil Count 6.5 X10^3/uL (2.0-7.7); Basophil# 0.03 X10^3/uL; Basophil% 0.3 % (0-1); Eosinophil# 0.06 X10^3/uL; Eosinophils% 0.6 % (0-5); Hematocrit 33.5 % (37-47); Lymphocyte # 2.47 X10^3/ul (0.83-4.51); Lymphocyte % 24.3 % (19-41); Mean Corp Hgb Conc 32.8 g/dL (32-36); Mean Corpuscular Hgb 29.8 pg (27.0-32.0); Mean Corpuscular Volume 90.8 fL (81-99); Mean Platelet Vol. 10.6 fl (6.2-12.0); Monocyte# 1.02 X10^3/uL; NRBC Flagged by Analyzer 0 % (0-5); Neutrophil # 6.54 X10^3/uL (2.7-7.7); Neutrophil % 64.5 % (47-70); Platelet Count 305 K/mm3 (150-450); RBC Distribution Width CV 13.3 % (11.6-14.6); RBC Distribution Width SD 44.2 fl (35.1-43.9); Red Blood Count 3.69 M/mm3 (4.2-5.4); White Blood Count 10.2 K/mm3 (4.4-11.0)
[2022-06-27 06:16] LABS: Anion Gap 3 (5-15); BUN 5 mg/dL (7-18); BUN/Creat Ratio 9.5 RATIO (10-20); Calcium,Total 7.9 mg/dL (8.5-10.1); Chloride 112 mmol/L (98-107); Creatinine, Serum 0.53 mg/dL (0.55-1.02); EST Glomerular Filtration Rate 139 mL/min (>60); Est Glom Filt Rate - Afr Amer 169 mL/min (>60); Estimated Creatinine Clearance 127.93 ml/min; Glucose 96 mg/dL (74-106); Magnesium 1.7 mg/dL (1.6-2.6); Phosphorus 2.1 mg/dL (2.5-4.9); Potassium 3.7 mmol/L (3.5-5.1); Sodium Level 139 mmol/L (136-145)
[2022-06-27] MEDS: 0.9% Normal Saline 1,000 ML 125 ML IV (06:21)
[2022-06-27 07:52] VITALS: BP 129/86; PULSE 71; RESP 18; TEMP 37.1; O2SAT 98
--- NOTE | 2022-06-27 11:43 | DCINST_ITS ---
Discharge Instructions Diet Discharge Diet: No restrictions Activity Discharge Activity: May Not Drive (May not drive while taking narcotic pain medications) and May Shower (May begin showering 48hours postop. Please avoid baths or submerging surgical incisions before skin is completely healed.) May shower in (days): 1 May resume sexual activity in: 2 weeks Ice area for (Minutes): 20 Lifting Restrictions: Limit lifting to <10lbs for 4 weeks following surgery Dressing / Incision Call your doctor if your incision/area has: Sudden Increased Bleeding, Increased Pain/ Swelling, Increased Redness, Foul Smelling Discharge and Swelling at the incision site Call your doctor if you observe: Fever of 101 or Higher, Inability to urinate, Inability to have a bowel movement and Uncontrolled pain Suture Line Care: Avoid Pulling/Pushing Remove Dressing in: 1 day (Please leave steri strips (medical tape) in place until they fall off spontaneously or are removed at your follow-up appointment) Cleanse incision/area with: Keep Dressing Clean & Dry Follow Up Care Please Follow Up With: Clarke Mendoza MD When: 1 week postop Test Results: Test results from this visit will be discussed in further detail at your follow- up appointment, if applicable. Discharge Plan Admission Admit Date/Time: 06/26/22 01:40 Primary Reason for Your Visit: Laparoscopic appendectomy Attending Provider: Clarke Mendoza Primary Care Provider: Jeovany Argueta Instructions Patient Instructions: Appendectomy Lap Dc, Opioid Use Risks Discharge Orders/Prescriptions Prescriptions: New oxycodone 5 mg Tablet 5 mg PO Q6H PRN PRN (Reason: Pain Score 6-10) 3 Days Qty: 14 0RF Continued lamotrigine [Lamictal] 200 mg tablet 200 mg PO BID multivitamin with minerals [Hair,Skin and Nails] Tablet 1 tab PO DAILY hydroxyzine HCl 10 mg tablet 10 mg PO TID PRN (Reason: Anxiety) cyanocobalamin (vitamin B-12) 500 MCG tablet 500 mcg PO DAILY@0800 topiramate 25 mg tablet 25 mg PO QHS Referrals / Follow Up: Jeovany Argueta DO [Primary Care Provider] - Jeovany Argueta [facility] [[facility]] - Disposition Disposition (needs filled in before D/C Order can be placed): Home, Self Care
--- NOTE | 2022-06-27 11:50 | PCM.DC.SUM ---
Providers Date of Admission: 06/26/22 Primary Care Physician: Dr. Jeovany Argueta, DO Reason For Visit: APPENDICITIS Diagnosis Discharge Diagnosis (1) Mucocele of appendix: Status: Acute Code(s): K38.8 - Other specified diseases of appendix (2) Acute appendicitis: Status: Acute Code(s): K35.80 - Unspecified acute appendicitis Plan Patient presenting with acute onset right lower quadrant pain and concern for acute appendicitis. While her limited pain experience and white count are further suggestive of this diagnosis, her reports of diarrhea, weight loss, and CT imaging suggesting more insidious process. Radiology read of CT is concerning for mucocele of the appendix. I have discussed with patient and her spouse ramifications of this reading and recommended operative intervention. I stated I would plan for a laparoscopic appendectomy, however, intraoperative findings could dictate a need towards open laparotomy if it appeared there is risk for perforation of the mucocele and possible need for more extensive surgery to include possible right hemicolectomy if findings suggested margins could not be obtained with an appendectomy alone and an oncologic resection was indicated. Patient and her spouse appear understandably overwhelmed, but reports their questions have been answered to their satisfaction and they would like to proceed as described. For now we will admit patient to the floor with plan as follows: ? N.p.o. for surgery ? Maintenance IV fluids ? As needed pain Rx ? Continue empiric antibiotics ? Consent for laparoscopic appendectomy with possible exploratory laparotomy, possibility ileocecectomy, possible right hemicolectomy, and other procedures as indicated Medications at Discharge Home Medications cyanocobalamin (vitamin B-12) 500 mcg tablet 500 mcg PO DAILY@0800 REPLACEMENT 01/18/13 hydroxyzine HCl 10 mg tablet 10 mg PO TID PRN Anxiety 12/27/19 multivitamin with minerals (Hair,Skin and Nails tablet) 1 tab PO DAILY 12/27/19 lamotrigine 200 mg tablet (Lamictal) 200 mg PO BID 05/01/20 topiramate 25 mg tablet 25 mg PO QHS 06/25/22 oxycodone 5 mg tablet 5 mg PO Q6H PRN PRN Pain Score 6-10 3 days #14 tabs 06/27/22 Hospital Course Operations appendectomy (Teen 2022) Summary of Care Provided Hospital Course: Patient a 37-year-old female who presented to [facility] on the evening of 06/25/2022 with complaints of acute onset abdominal pain. ER work-up was suggestive of a diagnosis of acute appendicitis with CBC showing elevated WBC and providers exam demonstrating significant right lower quadrant pain. However, patient's CT imaging showed a severely dilated appendix that appeared to be fluid-filled and was concerning for an appendiceal mucocele. Lengthy discussion was held with patient and her spouse regarding a recommendation for surgery but also the potential for malignancy and the need to avoid any perforation of the specimen. Patient provided her consent and the procedure was undertaken the morning of 06/26/2022. It proceeded in uncomplicated fashion, but the base of the cecum was also taken with the specimen in order to transect through grossly normal tissue. Patient was then returned to the hospital [facility] for ongoing recovery where she tolerated her initial diet advancement to liquids and a subsequent diet advancement to regular diet. This morning, postoperative day 1 she request discharge home as she is feeling well apart from some mild postoperative soreness at her incisions. Her vitals remained stable, her exam was acceptable, and her labs were improved. Therefore, discharge expectations were discussed and the patient's request was granted. Physical Exam Const alert, oriented x3 and no apparent distress General Appearance: cooperative Orientation / Consciousness: awake Resp normal respiratory effort GI GI Narrative: Minimally distended, operative dressings remain stable with small amount of bloody strikethrough at the supraumbilical port site. Patient's abdomen is appropriately tender with palpation about port sites only. There is no tenderness in the right lower quadrant with palpation. Weight / BMI Weight Weight: 130 lb 6.4 oz Body Mass Index (BMI) 22.4 ABG / Lab / Microbiology Data Result Diagrams: 06/27/22 04:51 06/27/22 04:51 Laboratory: Laboratory Results - last 24 hr 06/27/22 04:51: WBC 10.2, RBC 3.69 L, Hgb 11.0 L, Hct 33.5 L, MCV 90.8, MCH 29.8, MCHC 32.8, RDW Std Deviation 44.2 H, RDW Coeff of Felicitas 13.3, Plt Count 305, MPV 10.6, Immature Gran % (Auto) 0.300, Neut % (Auto) 64.5, Lymph % (Auto) 24.3, [place] % (Auto) 10.0, Eos % (Auto) 0.6, Baso % (Auto) 0.3, Absolute Neuts (auto) 6.5, Absolute Lymphs (auto) 2.47, Nucleated RBC % 0 06/27/22 04:51: Sodium 139, Potassium 3.7, Chloride 112 H, Carbon Dioxide 24.0, Anion Gap 3 L, BUN 5 L, Creatinine 0.53 L, Estim Creat Clear Calc 127.93, Est GFR (MDRD) Af Amer 169, Est GFR (MDRD) Non-Af 139, BUN/Creatinine Ratio 9.5 L, Glucose 96, Calcium 7.9 L, Phosphorus 2.1 L, Magnesium 1.7 D/C Instructions Discharge Diet: No restrictions May shower in (days): 1 May resume sexual activity in: 2 weeks Ice area for (Minutes): 20 Call your doctor if your incision/area has: Sudden Increased Bleeding, Increased Pain/ Swelling, Increased Redness, Foul Smelling Discharge and Swelling at the incision site Call your doctor if you observe: Fever of 101 or Higher, Inability to urinate, Inability to have a bowel movement and Uncontrolled pain Suture Line Care: Avoid Pulling/Pushing Cleanse incision/area with: Keep Dressing Clean & Dry Please Follow Up With: Clarke Mendoza MD When: 1 week postop Meaningful Use Info Meaningful Use Diagnoses (Choose all that apply): None applicable Discharge Plan Admission Admit Date/Time: 06/26/22 01:40 Primary Reason for Your Visit: Laparoscopic appendectomy Attending Provider: Clarke Mendoza Primary Care Provider: Jeovany Argueta Instructions Patient Instructions: Appendectomy Lap Dc, Opioid Use Risks Discharge Orders/Prescriptions Prescriptions: New oxycodone 5 mg Tablet 5 mg PO Q6H PRN PRN (Reason: Pain Score 6-10) 3 Days Qty: 14 0RF Continued lamotrigine [Lamictal] 200 mg tablet 200 mg PO BID multivitamin with minerals [Hair,Skin and Nails] Tablet 1 tab PO DAILY hydroxyzine HCl 10 mg tablet 10 mg PO TID PRN (Reason: Anxiety) cyanocobalamin (vitamin B-12) 500 MCG tablet 500 mcg PO DAILY@0800 topiramate 25 mg tablet 25 mg PO QHS Referrals / Follow Up: Jeovany Argueta DO [Primary Care Provider] - Jeovany Argueta [facility] [[facility]] - Disposition Disposition (needs filled in before D/C Order can be placed): Home, Self Care Charges/Coding Visit Charges Inpatient E&M: 33787 Disch Hosp
[2022-06-27 12:13] VITALS: BP 115/66; PULSE 59; RESP 18; TEMP 36.9; O2SAT 100
[2022-06-29 08:17] LABS: Carcinoembryonic Antigen 2.4 ng/mL (0.0-4.7)
== END 2022-06-27 12:31 | disposition home or self-care (01) ==
LOC: ED 06-26 01:40 → MS3 06-26 01:48
PROVIDERS: Admitting Provider Surgery; Emergency Provider Emergency Medicine; PCP Student in an Organized Health Care Education/Training Program; Visit Provider Surgery
PROC: 0DTJ4ZZ Resection of Appendix, Percutaneous Endoscopic Approach (ICD-10-PCS; CPT 44970; principal; 2022-06-26 10:00)
DX: K35.80 Unspecified acute appendicitis (principal); Z87.891 Personal history of nicotine dependence; F41.9 Anxiety disorder, unspecified; J45.909 Unspecified asthma, uncomplicated; Z79.899 Other long term (current) drug therapy; F32.A Depression, unspecified
CPT/HCPCS: 44970; 00840; 36415; 74177; 80048; 80076; 81001; 81025; 82378; 83605; 83690; 83735; 84100; 85025; 88304; 96361; 96365; 96375; 96376; 99221; 99284; J7030; Q9967; A4216; G0378; J2405

== ENCOUNTER → 2023-11-08 | Outpatient (CLI) | payer OTHER, SELFPAY ==
[2023-11-14 12:08] LABS: HPV APTIMA, High Risk Negative (Negative)
== END | disposition home or self-care (01) ==
PROVIDERS: PCP Student in an Organized Health Care Education/Training Program; Referring Provider Obstetrics & Gynecology; Visit Provider Obstetrics & Gynecology
DX: Z12.4 Encounter for screening for malignant neoplasm of cervix (principal)
CPT/HCPCS: 87624; 88175; G0145

== ENCOUNTER → 2024-06-18 | Outpatient (CLI) | payer OTHER, SELFPAY ==
--- NOTE | 2024-06-18 14:00 | US_ITS ---
PROCEDURE: Pelvic ultrasound transabdominal and transvaginal. 06/18/2024 REASON FOR EXAM: HEAVY MENSES TECHNIQUE: Transabdominal and transvaginal pelvic ultrasound images were obtained. COMPARISON: None available FINDINGS: The included portions of the urinary bladder show no specific abnormality. The uterus is anteverted measuring 10.3 x 6.0 x 5.2 cm. No discrete uterine myometrial or cervical mass is demonstrated. The endometrium measures 2.1 cm in total thickness. On transvaginal images, there is suggestion of an ovoid lesion within the endo myometrial canal, isoechoic to the peripheral margins, measuring 2.1 x 2.2 x 1.2 cm, was with some internal vascularity on Doppler evaluation. The left ovary is 4.0 x 2.2 x 2.6 cm. A few left ovarian follicles are present, the largest at 1.7 cm. There appears to be blood flow in the left ovary on Doppler evaluation. The right ovary is 3.5 x 2.1 x 2.4 cm. Slightly hyperechoic mixed echogenicity lesion central right ovary measuring 2.2 cm could represent a solid lesion versus small hemorrhagic cyst. There appears to be blood flow in the right ovary on Doppler evaluation. No significant free pelvic fluid. US/Pelvic w/ Transvaginal IMPRESSION: In the endometrial canal, there is a 2.2 cm fairly well-marginated ovoid struct ure, isoechoic to peripheral endometrium, with some internal blood flow on Doppler evaluation. This could represent an endome trial polyp versus other nonspecific endometrial lesion. Biopsy or hysteroscopy is suggested. No discrete uterine or myometrial mass demonstrated. A few small left ovarian follicles are present, the largest at 1.7 cm. There i s a 2.2 cm mildly echogenic mixed echogenicity structure in the central right ovary, possible small hemorrhagic cyst or solid lesion. No evidence of ovarian torsion. This could be re-evaluated with a follow-up pelvic ultrasound in 1-2 menstrual cycle s. [facility]
[2024-06-18 14:57] LABS: Absolute Neutrophil Count 2.5 X10^3/uL (2.0-7.7); Basophil# 0.05 X10^3/uL; Eosinophil# 0.06 X10^3/uL; Eosinophils% 1.2 % (0-5); Hematocrit 36.3 % (37-47); Hemoglobin 12.2 g/dL (12.0-15.0); Lymphocyte % 34.9 % (19-41); Mean Corp Hgb Conc 33.6 g/dL (32-36); Mean Corpuscular Hgb 30.6 pg (27.0-32.0); Mean Platelet Vol. 10.3 fl (6.2-12.0); Monocyte# 0.51 X10^3/uL; Monocyte% 10.5 % (0-10); NRBC Flagged by Analyzer 0 % (0-5); Neutrophil # 2.54 X10^3/uL (2.7-7.7); Neutrophil % 52.2 % (47-70); Platelet Count 266 K/mm3 (150-450); RBC Distribution Width CV 13.3 % (11.6-14.6); RBC Distribution Width SD 44.4 fl (35.1-43.9); Red Blood Count 3.99 M/mm3 (4.2-5.4); White Blood Count 4.9 K/mm3 (4.4-11.0)
== END | disposition home or self-care (01) ==
PROVIDERS: PCP Student in an Organized Health Care Education/Training Program; Referring Provider Obstetrics & Gynecology; Visit Provider Obstetrics & Gynecology
DX: N92.0 Excessive and frequent menstruation with regular cycle (principal)
CPT/HCPCS: 36415; 76830; 76856; 84443; 85025

== ENCOUNTER 2025-02-12 05:51 | Day surgery (SDC) | payer OTHER, SELFPAY ==
[2025-02-04 16:45] LABS: Hematocrit 34.8 % (37-47); Hemoglobin 11.9 g/dL (12.0-15.0); Mean Corp Hgb Conc 34.2 g/dL (32-36); Mean Corpuscular Volume 90.4 fL (81-99); Mean Platelet Vol. 9.9 fl (6.2-12.0); Platelet Count 351 K/mm3 (150-450); RBC Distribution Width CV 12.9 % (11.6-14.6); RBC Distribution Width SD 42.4 fl (35.1-43.9); Red Blood Count 3.85 M/mm3 (4.2-5.4); White Blood Count 5.8 K/mm3 (4.4-11.0)
[2025-02-12] VITALS (8 sets, daily range): BP systolic 99–114; BP diastolic 59–66; PULSE 51–61; RESP 16; TEMP 36.1–36.7; O2SAT 98–100; BMI 24.2
--- OUTSIDE RECORDS SUMMARY | 2025-02-12 05:55 | XMS RPT_ITS | CCD ---
Author Organization [facility] Care Team Providers Care Senior Adults Director Name Role Phone Jeovany Argueta DO Primary Care Provider Dr. Neil Dunne Emergency Provider Dr. Jeovany Argueta Primary Care Provider Dr. Clarke Mendoza Admit Provider Dr. Clarke Mendoza Attending Provider Dr. Clarke Mendoza Other Provider Jeovany Argueta DO Primary Care Provider Jeovany Argueta DO Primary Care Provider Jorje JOY OPERATOR HELPER.HOSE BUILDER, Rachaeljyothi Hall Unavailable [facility] JOY OPERATOR HELPER.Vale ABRAHAM Unavailable Dr. Jeovany Argueta DO Primary Care Provider Dr. Shilpi Boyle MD Attending Provider [phone] Dr. Shilpi Boyle MD Referring Provider [facility] JOY OPERATOR HELPER.Patty ABRAHAM Unavailable BRIANNA ERVIN Attending Unavailabl e SELF Referring Unavailable JEOVANY ARGUETA Primary Care Unavailable JEOVANY ARGUETA Referring Unavailable JEOVANY ARGUETA Primary Care Unavailable JEOVANY ARGUETA Primary Care Unavailable JEOVANY ARGUETA Attending Unavailable JEOAVNY ARGUETA Primary Care Unavailable Dr. Jeovany Argueta DO Primary Care Physician Dr. Jeovany Argueta DO Referring Provider Efraín GRUBBSCAmi Attending Physician [phone] Jeovany Argueta Primary Care Unavailable Shilpi Boyle Attending Unavailable Jeovany Argueta Primary Care Unavailable Shilpi Boyle Referring Unavailable Shilpi Boyle Attending Unavailable Jeovany Argueta Referring Unavailable Jeovany Argueta Primary Care Unavailable Ami Kenny NP Attending Unavailable Jeovany Argueta Referring Unavailable Jeovany Argueta Primary Care Unavailable Shilpi Boyle Attending Unavailable Allergies Allergy Classification Reported Allergen(s) Allergy Type Date of Onset Reaction(s) Facility (20 sources) predniSONE; Translations: [PREDNISONE] Drug Allergy 0 Hives, Rash, Swelling [facility] Work Phone: (20 sources) Animal Dander; Translations: [ANIMAL DANDER] Propensity to adverse reactions 7 [facility] Work Phone: (1 source) predniSONE Drug Allergy 5 [facility] Repository Medications Current Medications Medication Drug Class(es) Dates Sig (Normalized) Sig (Original) [id number] 200 actuat albuterol 0.09 mg/actuat metered dose inhaler (20 sources) beta2-Adrenergic Agonist Start: 05-29-2024 take 0.5 mL by inhalation every four hours as needed for wheezing albuterol (PROVENTIL) 5 mg/mL nebu Indications: Moderate persistent asthma, uncomplicated (HCC) , Acute cough Inhale 0.5 mL as instructed every 4 hours as needed for wheezing/shortness of breath. 90 mL 1 05/29/2024 Active Start: 06-07-2023 End: 09-26-2024 take 2 puff(s) by inhalation every four hours as needed for wheezing albuterol HFA (VENTOLIN HFA) 90 mcg/actuation inhaler Indications: Moderate persistent asthma, uncomplicated (HCC) Inhale 2 puffs as instructed every 4 hours as needed for wheezing/shortness of breath. 1 each 5 09/26/2024 Active Comment on above: Inhale 2 Puffs as in structed every 4 hours as needed for wheezing/shortness of breath. amoxicillin 875 mg / clavulanate 125 mg oral tablet (6 sources) Penicillin-class Antibacterial Start: 05-30-19 End: 06-13-19 take 1 tablet by mouth twice daily amoxicillin-clavu lanate potassium (AUGMENTIN) 875-125 mg per tablet Indications: Acute non-recurrent maxillary sinusitis Take 1 tablet by mouth two times a day for 14 days. 28 tablet 05/29/2024 06/12/2024 Active Start: 06-07-2023 End: 06-17-2023 take 1 tablet by mouth twice daily amoxicillin-clavulanate potassium (AUGMENTIN) 875-125 mg per tablet Indications: Bacterial sinusitis Take 1 tablet by mouth two times a day for 10 days. 20 tablet 0 06/07/2023 06/17/2023 Active Start: 02-22-2022 End: 03-04-2022 take 1 tablet by mouth twice daily amoxicillin-clavulanic acid (AUGMENTIN) 875-125 mg per tablet Indications: Sore throat , URI, acute , Acute otitis media, bilateral Take 1 tablet by mouth twice daily for 10 days. 20 tablet 0 02/22/2022 03/04/2022 Active Comment on above: Take 1 tablet by storm th twice daily for 10 days. Take 1 tablet by storm two times a day for 10 days. benzonatate 100 mg oral capsule (2 sources) Non-narcotic Antitussive Start: 2 End: 2 take 1 capsule by mouth every eight hours as needed benzonatate (TESSALON PERLES) 100 mg capsule Take 1 capsule by mouth three times daily as needed for cough. 60 capsule 0 12/28/2021 01/27/2022 Active Comment on above: Take 1 capsule by mo [facility] three times daily as needed for cough. cephalexin 500 mg oral tablet (1 source) Cephalosporin Antibacterial Start: 5 take 1 tablet by mouth twice daily Cephalexin 500 mg tablet Active 500 mg PO TWICE A DAY 14 7 0 December 18, 2024 12:00am December 24, 2024 12:00am Complies with drug therapy codeine phosphate 2 mg/ml / guaiFENesin 20 mg/ml oral solution (3 sources) Opioid Agonist Start: 2 End: 2 take 5 mL by mouth three times daily as needed codeine-guaiFENesin (GUAIFENESIN AC) 10-100 mg/5 mL syrup Indications: Acute cough , Bronchitis Take 5 mL by mouth three times daily as needed for up to 5 days. 118 mL 0 12/28/2021 01/02/2022 Active Comment on above: Take 5 mL by mouth t hree times daily as needed for up to 5 days. doxycycline hyclate 100 mg oral tablet (3 sources) Tetracycline-class Drug Start: End: take 1 tablet by mouth twice daily doxycycline (VIBRA-TABS) 100 mg tablet Take 1 tablet by mouth two times a day for 7 days. 14 tablet 11/28/2023 12/05/2023 Active Start: 08-02-2023 End: 08-09-2023 take 1 tablet by mouth twice daily doxycycline (VIBRA-TABS) 100 mg tablet Take 1 tablet by mouth two times a day for 7 days. 14 tablet 0 08/02/2023 08/09/2023 Active fluticasone / salmeterol (20 sources) Corticosteroid, beta2-Adrenergic Agonist Start: 09-26-2024 End: 10-26-2024 take 1 puff(s) by mouth twice daily fluticasone-salmeterol (ADVAIR DISKUS) 250-50 mcg/dose inhaler Inhale 1 puff as instructed two times a day. Rinse and gargle mouth after use with water. 60 each 5 09/26/2024 10/26/2024 Active Start: 02-22-2022 End: 09-26-2024 take 1 puff(s) by mouth twice daily fluticasone-salmeterol (ADVAIR DISKUS) 250-50 mcg/dose inhaler Inhale 1 Puff as instructed twice daily. Rinse and gargle mouth after use with water. 60 Each 02/22/2022 09/26/2024 Discontinued Start: 02-22-2022 take 1 puff(s) by mo uth twice daily fluticasone-salmeterol (ADVAIR DISKUS) 250-50 mcg/dose inhaler Inhale 1 Puff as instructed twice daily. Rinse and gargle mouth after use with water. 60 Each 02/22/2022 Active Start: 02-22-2022 take 1 puff(s) by mo uth twice daily fluticasone-salmeterol (ADVAIR DISKUS) 250-50 mcg/dose inhaler Inhale 1 Puff as instructed twice daily. Rinse and gargle mouth after use with water. 60 Each 0 02/22/2022 Active Start: 02-22-2022 End: 03-24-2022 take 1 puff(s) by mouth twice daily fluticasone-salmeterol (ADVAIR DISKUS) 250-50 mcg/dose inhaler Inhale 1 Puff as instructed twice daily. Rinse and gargle mouth after use with water. 60 Each 0 02/22/2022 03/24/2022 Active Start: 01-01-2022 End: 02-22-2022 take 1 puff(s) by mouth twice daily fluticasone-salmeterol (ADVAIR DISKUS) 250-50 mcg/dose inhaler Inhale 1 Puff as instructed twice daily. Rinse and gargle mouth after use with water. 60 Each 0 01/01/2022 02/22/2022 Discontinued Start: 01-14-2020 End: 05-01-2020 Fluticasone Propion-Salmeter ol (Wixela Inhub) 250-50 mcg/dose blister with device Discontinued 1 INH INHALATION TWICE A DAY January 14, 2020 3:47pm May 01, 2020 10:51am Start: 01-14-2020 End: 05-01-2020 Fluticasone Propion-Salmeter ol (Wixela Inhub) 250-50 mcg/dose blister with device Discontinued 1 NMA INHALATION TWICE A DAY January 14, 2020 1:00am May 01, 2020 10:51am Start: 01-14-2020 End: 05-01-2020 Fluticasone Propion-Salmeter ol (Wixela Inhub) 250-50 mcg/dose blister with device Discontinued 1 INH INHALATION TWICE A DAY January 14, 2020 1:00am May 01, 2020 10:51am Comment on above: Inhale 1 Puff as ins tructed twice daily. Rinse and gargle mouth after use with water. hydrOXYzine hydrochloride 25 mg oral tablet (20 sources) Antihistamine Start: 06-20-19 22 take 1 tablet by mouth twice daily hydrOXYzine HCl (ATARAX) 25 mg tablet Take 1 tablet by mouth twice daily. 60 tablet 1 06/19/2021 Active Start: 01-24-2020 hydrOXYzine HC l (ATARAX) 25 mg tablet Start: 12-27-2019 take 1 tablet by storm th three times daily as needed for anxiety Hydroxyzine Hcl 10 mg tablet Active 10 mg PO THREE TIMES A DAY as needed for Anxiety December 27, 2019 12:00am Complies with drug therapy Comment on above: Take 1 tablet by storm th twice daily. lamoTRIgine 150 mg oral tablet (20 sources) Mood Stabilizer, Anti-epileptic Agent Start: 11-26-2021 End: 02-24-2022 take 1 tablet by mouth twice daily lamoTRIgine (LAMICTAL) 150 mg tablet Take 1 tablet by mouth twice daily. 180 tablet 11/26/2021 Active Start: 05-01-2020 take 1 tablet by storm th twice daily Lamotrigine (Lamictal) 200 mg tablet Active 200 mg PO TWICE A DAY May 01, 2020 1:00am Complies with drug therapy Comment on above: Take 150 mg by mouth twice daily. Take 1 tablet by storm th twice daily. multivit rse-gcbh-DW-herb 186 3.3 mg iron-25 mcg tab (20 sources) Start: 10-13-2015 multivit ury-xgze-BX-herb 186 3.3 mg iron-25 mcg tab 10/13/2015 Active Start: 10-13-2015 multivit min-i ramon-FA-herb 186 3.3 mg iron-25 mcg tab Multivitamin With Minerals (Hair,Skin And Nails) tablet (6 sources) Start: 12-27-2019 take 1 tablet by mouth once daily Multivitamin With Minerals (Hair,Skin And Nails) tablet Active 1 TABLET PO DAILY December 27, 2019 8:31am Start: 12-27-2019 Multivitamin W ith Minerals (Hair,Skin And Nails) tablet Active 1 {tbl} PO DAILY December 27, 2019 12:00am Complies with drug therapy Start: 12-27-2019 Multivitamin W ith Minerals (Hair,Skin And Nails) tablet Active 1 {tbl} PO DAILY December 27, 2019 12:00am Start: 12-27-2019 take 1 tablet by storm th once daily Multivitamin With Minerals (Hair,Skin And Nails) tablet Active 1 TABLET PO DAILY December 27, 2019 12:00am naproxen 500 mg oral tablet (6 sources) Nonsteroidal Anti-inflammatory Drug Start: 11-08-2023 take 1 tablet by mouth twice daily as needed for pain Naproxen 500 mg tablet Active 500 mg PO TWICE A DAY as needed for pain 30 2 November 08, 2023 12:00am Segmental and somatic dysfunction of thoracic region administer with food or milk Complies with drug therapy Start: 07-29-2021 End: 12-28-2021 take 1 tablet by mouth twice daily as needed for pain naproxen (NAPROSYN) 500 mg tablet Indications: Concussion syndrome Take 1 tablet by mouth twice daily as needed (for pain/inflammation). Take with food. 20 tablet 1 07/29/2021 12/28/2021 Discontinued Comment on above: Take 1 tablet by storm th twice daily as needed (for pain/inflammation). Take with food. OPZELURA 1.5 % cream (19 sources) Start: 06-01-2022 OPZELURA 1.5 % cream apply thin layer to affected area twice a day 06/01/2022 Active Start: 06-01-2022 OPZELURA 1.5 % cream apply thin layer to affected area twice a day 0 06/01/2022 Active Comment on above: apply thin layer to affected area twice a day Ruxolitinib (3 sources) Start: 07-20-2024 Ruxolitinib (Opzelura) 1.5 % cream Active 1 NMA TOPICAL TWICE A DAY as needed July 20, 2024 9:57am Complies with drug therapy Start: 11-08-2023 End: 07-20-2024 Ruxolitinib (Opzelura) 1.5 % cream Discontinued 1 NMA TOPICAL TWICE A DAY November 08, 2023 12:00am July 20, 2024 9:57am Start: 11-08-2023 Ruxolitinib (O pzelura) 1.5 % cream Active 1 NMA TOPICAL TWICE A DAY November 08, 2023 12:00am tacrolimus 0.001 mg/mg topical ointment (4 sources) Calcineurin Inhibitor Immunosuppressant tacrolimus (PROTOPIC ) 0.1 % ointment Apply to affected area two times a day. Active Vitamin B Complex (20 sources) Start: 10-13-2015 vitamin B complex (B COMPLEX 1 ORAL) 10/13/2015 Active Start: 10-13-2015 vitamin B comp leanna (B COMPLEX 1 ORAL) vitamin b12 0.5 mg oral tablet (6 sources) Vitamin B12 Start: 01-18-2013 take 1 tablet by mouth once daily Cyanocobalamin (Vitamin B-12) 500 MCG tablet Active 500 ug PO DAILY@0800 January 18, 2013 1:00am REPLACEMENT Complies with drug therapy Completed/Discontinued Medications Medication Drug Class(es) Dates Sig (Normalized) Sig (Original) azithromycin 250 mg oral tablet (9 sources) Macrolide Antimicrobial Start: 02-28-2024 End: 05-30-2024 azithromycin (ZITHROMAX) 250 mg tablet Indications: URI, acute Take 1 tablet by mouth as directed. 6 tablet 02/28/2024 05/30/2024 Discontinued Start: 08-02-2023 End: 08-07-2023 azithromycin (ZITHROMAX Z-PA K) 250 mg tablet Take 2 tablets day one, then, 1 tablet daily until gone. 6 tablet 0 08/02/2023 08/07/2023 Active Start: 01-20-2023 End: 01-25-2023 azithromycin (ZITHROMAX Z-PA K) 250 mg tablet Indications: URI, acute Take 2 tablets day one, then, 1 tablet daily until gone. 6 tablet 0 01/20/2023 01/25/2023 Active Start: 02-23-2022 End: 02-28-2022 azithromycin (ZITHROMAX Z-PA K) 250 mg tablet Indications: Sore throat Take 2 tablets day one, then, 1 tablet daily until gone. 6 tablet 0 02/23/2022 02/28/2022 Active Start: 12-28-2021 End: 01-02-2022 azithromycin (ZITHROMAX Z-PA K) 250 mg tablet Indications: Acute cough , Bronchitis Take 2 tablets day one, then, 1 tablet daily until gone. 6 tablet 0 12/28/2021 01/02/2022 Active Comment on above: Take 2 tablets day o ne, then, 1 tablet daily until gone. Norgestimate-Ethiny l Estradiol (6 sources) Progestin, Estrogen Start: 02-21-2018 End: 06-26-2018 take 1 tablet by mouth once daily Norgestimate-Ethinyl Estradiol (Kaufman-Linyah) 0.25-35 mg-mcg tablet Discontinued 1 TABLET PO DAILY February 21, 2018 9:25am June 26, 2018 11:16am Start: 02-21-2018 End: 06-26-2018 Norgestimate-Ethinyl Estradi ol (Kaufman-Linyah) 0.25-35 mg-mcg tablet Discontinued 1 {tbl} PO DAILY 84 0 February 21, 2018 1:00am June 26, 2018 11:16am Start: 02-21-2018 End: 06-26-2018 Norgestimate-Ethinyl Estradi ol (Kaufman-Linyah) 0.25-35 mg-mcg tablet Discontinued 1 {tbl} PO DAILY 84 February 21, 2018 1:00am June 26, 2018 11:16am Start: 02-21-2018 End: 06-26-2018 take 1 tablet by mouth once daily Norgestimate-Ethinyl Estradiol (Kaufman-Linyah) 0.25-35 mg-mcg tablet Discontinued 1 TABLET PO DAILY 84 February 21, 2018 1:00am June 26, 2018 11:16am fluticasone propionate 0.05 mg/actuat metered dose nasal spray (7 sources) Corticosteroid Start: 06-07-2023 End: 05-30-2024 take 2 spray(s) by mouth once daily fluticasone (FLONASE) 50 mcg/actuation nasal spray Use 2 Sprays in each nostril once daily. Rinse mouth after use. 1 Each 06/07/2023 05/30/2024 Discontinued Comment on above: Use 2 Sprays in each nostril once daily. Rinse mouth after use. folic acid 1 mg oral tablet (6 sources) Start: 11-18-2016 End: 04-07-2017 take 1 tablet by mouth once daily Folic Acid 1 MG tablet Discontinued 1 mg PO DAILY November 18, 2016 12:00am April 07, 2017 5:03pm oxyCODONE hydrochloride 5 mg oral tablet (3 sources) Opioid Agonist Start: 06-27-2022 End: 11-08-2023 take 1 tablet by mouth every six hours as needed for pain Oxycodone 5 mg Tablet Discontinued 5 mg PO EVERY 6 HOURS NEEDED as needed for Pain Score 6-10 14 3 0 June 27, 2022 November 08, 2023 2:43pm Acute appendicitis Status post appendectomy Unspecified acute appendicitis Acquired absence of other specified parts of digestive tract Vit No.807-Cgay-Gcdxb (4 sources) Start: 11-18-2016 End: 04-07-2017 Vit No.907-Dvsp-Czjub Discontinued 1 EACH PO DAILY November 18, 2016 1:48pm April 07, 2017 5:03pm Start: 11-18-2016 End: 04-07-2017 Vit No.674-Nmtc-Whg ic Discontinued 1 EACH PO DAILY November 18, 2016 12:00am April 07, 2017 5:03pm Vit No.036-Hhek-Sjfil 1 EACH tablet (2 sources) Start: 11-18-2016 End: 04-07-2017 take 1 tablet by mouth once daily Vit No.476-Xdgl-Wyznw 1 EACH tablet Discontinued 1 NMA PO DAILY November 18, 2016 12:00am April 07, 2017 5:03pm sulfamethoxazole 800 mg / trimethoprim 160 mg oral tablet (6 sources) Dihydrofolate Reductase Inhibitor Antibacterial, Sulfonamide Antimicrobial Start: 09-04-2020 End: 09-07-2020 Sulfamethoxazole-Trim ethoprim (Bactrim Ds) 800-160 mg tablet Discontinued 1 {tbl} PO TWICE A DAY 6 3 0 September 04, 2020 12:00am September 06, 2020 12:00am September 07, 2020 12:01am topiramate 25 mg oral tablet (20 sources) Start: 06-25-2022 End: 07-20-2024 take 1 tablet by mouth at bedtime Topiramate 25 mg tablet Discontinued 25 mg PO AT BEDTIME June 25, 2022 12:00am July 20, 2024 9:57am take 1 tablet by mouth once sol y topiramate (TOPAMAX) 50 mg tablet Take 50 mg by mouth once daily. Active take 1 tablet by mouth twice derick ly topiramate (TOPAMAX) 50 mg tablet Take 50 mg by mouth twice daily. 0 Active Comment on above: Take 50 mg by mouth twice daily. Take 50 mg by mouth once daily. traMADol hydrochloride 50 mg oral tablet (6 sources) Opioid Agonist Start: 7 End: 9 take 1 tablet by mouth every six hours as needed for pain Tramadol 50 MG tablet Discontinued 50 mg PO EVERY 6 HOURS NEEDED as needed for Severe Pain (6-10/10) November 18, 2016 12:00am June 26, 2018 11:16am Problems Active Problems Problem Classification Problem Date Documented Date Episodic/Chronic Anxiety disorders (20 sources) Panic disorder without agoraphobia; Translations: [Panic disorder [episodic paroxysmal anxiety]] Onset: 02-23-2007 02-23-2007 Chronic Appendicitis and other appendiceal conditions (20 sources) Acute appendicitis; Translations: [Unspecified acute appendicitis] Onset: 07-28-2022 06-26-2022 Episodic Asthma (20 sources) Unspecified asthma, uncomplicated; Translations: [Asthma, unspecified type, unspecified] 01-10-2007 Chronic Chronic obstructive pulmonary disease and bronchiectasis (1 source) Bronchitis; Translations: [Bronchitis, not specified as acute or chronic] Episodic Disorders of lipid metabolism (18 sources) Pure hypercholesterolemia; Translations: [Pure hypercholesterolemia, unspecified] Onset: 07-28-2022 Chronic Immunizations and screening for infectious disease (6 sources) Patient encounter status; Translations: [Encounter for screening for human immunodeficiency virus [HIV]] Episodic Comment on above: may consider laparos copic BS at time of surgery Intracranial injury (6 sources) Concussion injury of body structure; Translations: [Concussion with loss of consciousness of unspecified duration, initial encounter] 08-04-2021 Episodic Malaise and fatigue (1 source) Fatigue; Translations: [Other fatigue] Episodic Menstrual disorders (3 sources) Menorrhagia; Translations: [Excessive and frequent menstruation with regular cycle] Onset: 06-22-2024 06-12-2024 Chronic Comment on above: suspect polyp plan d and c hysteroscopy polypectomy symphion Mood disorders (20 sources) Recurrent major depressive episodes; Translations: [Major depressive disorder, recurrent, unspecified] Onset: 05-12-2021 07-20-2007 Chronic Nephritis; nephrosis; renal sclerosis (20 sources) Acute glomerulonephritis; Translations: [Acute nephritic syndrome with unspecified morphologic changes] 01-10-2007 Episodic Nonmalignant breast conditions (6 sources) Breast lump; Translations: [Unspecified lump in the left breast, unspecified quadrant] 12-27-2019 Episodic Other injuries and conditions due to external causes (6 sources) Injury of head; Translations: [Unspecified injury of head, initial encounter] 08-04-2021 Episodic Other lower respiratory disease (1 source) Cough; Translations: [Acute cough] Episodic Other lower respiratory disease (1 source) Cough; Translations: [Acute cough] 05-29-2024 Episodic Other nervous system disorders (16 sources) Disturbance of attention; Translations: [Attention and concentration deficit] Onset: 07-28-2022 Chronic Other nervous system disorders (3 sources) H/O: migraine; Translations: [Personal history of other diseases of the nervous system and sense organs] 06-26-2022 Episodic Other nervous system disorders (1 source) Personal history of other diseases of the nervous system and sense organs; Translations: [Personal history of other disorders of nervous system and sense organs] 06-27-2022 Episodic Other non-traumatic joint disorders (1 source) Joint pain; Translations: [Pain in unspecified joint] Episodic Other skin disorders (3 sources) Vitiligo; Translations: [Vitiligo] Episodic Other skin disorders (1 source) Chloasma; Translations: [Chloasma] 09-07-2024 Episodic Other upper respiratory infections (3 sources) Bacterial sinusitis; Translations: [Chronic sinusitis, unspecified] 06-07-2023 Chronic Other upper respiratory infections (6 sources) Sore throat symptom; Translations: [Acute pharyngitis, unspecified] Episodic Otitis media and related conditions (1 source) Acute bilateral otitis media ; Translations: [Otitis media, unspecified, bilateral] Episodic Residual codes; unclassified (1 source) Intolerant of cold; Translations: [Other general symptoms and signs] Episodic Unclassified (1 source) White Spots Onset: 09-07-2024 Past or Other Problems Problem Classification Problem Date Documented Date Episodic/Chronic Other screening for suspected conditions (not mental disorders or infectious disease) (20 sources) Other specified abnormal findings of blood chemistry; Translations: [Other abnormal blood chemistry] Onset: 07-28-2022 Episodic Other skin disorders (20 sources) Skin striae; Translations: [Striae atrophicae] Onset: 07-08-2008 07-08-2008 Episodic Residual codes; unclassified (15 sources) Acquired absence of other specified parts of digestive tract; Translations: [Other postprocedural status] Onset: 07-28-2022 07-28-2022 Episodic Residual codes; unclassified (15 sources) History of partial resection of colon; Translations: [Acquired absence of other specified parts of digestive tract] Onset: 07-28-2022 07-28-2022 Episodic Unclassified (4 sources) ankle surgery 10-03-2021 Unclassified (1 source) Acute cough 05-30-2024 Results Test Name Value Interpretation Reference Range Facility Continuous Improvement Engineer Office Visit Reporton 12-18-2024 Continuous Improvement Engineer Office Visit Report [facility] [address], [address] [place] [address] OFFICE VISIT Date of Service: 12/18/24 MR#: [id number] Acct: [id number] Name: HERON MAKI Rep #: [id number] : 1985 Provider: THEA camacho Age/Sex: 39/F Location: [facility] [place], [place] Status: Signed Intake Vital Signs 07/20/24 09:54 12/18/24 15:19 12/18/24 15:22 Height 5 ft 4 in 5 ft 4 in 5 ft 4 in Weight: 138 lb 8 oz 140 lb 9 oz BMI 23.8 24.1 BP 119/80 112/74 Intake Visit Reasons: GROWTH ON LABIA *COPAY $20 Blueprint Assembler Required: No Is patient in pain?: No Allergies prednisone Adverse Reaction (Verified 12/18/24 15:28) Swelling Medications ???Medication ???Instructions ???Recorded ???Confirmed ???Type cyanocobalamin (vitamin B-12) 500 500 mcg PO DAILY@0800 REPLACEMENT 01/18/13 12/18/24 History mcg tablet hydroxyzine HCl 10 mg tablet 10 mg PO TID PRN Anxiety 12/27/19 12/18/24 History multivitamin with minerals 1 tab PO DAILY 12/27/19 12/18/24 H istory (Hair,Skin and Nails tablet) lamotrigine 200 mg tablet 200 mg PO BID 05/01/20 12/18/24 Hi story (Lamictal) naproxen 500 mg tablet 500 mg PO BID PRN pain #30 tabs 12/18/24 Rx ruxolitinib 1.5 % topical cream 1 applic topical BID PRN 07/20/24 12/18/24 History (Opzelura) cephalexin 500 mg tablet 500 mg PO BID 7 days #14 tabs 10/0 7/25 10/07/25 Rx Post menopausal: No Patient : No : No PFSH Medical History History of steroid therapy Back pain due to injury Injury of head and neck Substance abuse Alcohol abuse Anxiety Depression Former smoker Asthma Migraines Anxiety and depression Surgical History History of partial colectomy History of appendectomy S/P breast biopsy, left delivery delivered H/O dilation and curettage ankle surgery History of tonsillectomy and adenoidectomy Family History Grandfather Cancer prostate Grandmother Cancer skin Brother Asthma Mother Autoimmune disease Social History Smoking Status: Former smoker alcohol intake: never substance use type: does not use caffeine: Yes what type of physical activity do you participate in: walking, running and yoga frequency: 5-6 times per week seatbelt use: always do you feel safe at home: Yes additional social history: Cesario- [employer] [facility] HPI GROWTH ON LABIA *COPAY $20 Details: HERON MAKI is a 39 year old who presents for lump in vaginal area X 2 weeks that is now larger and more painful. History 2 Elective abortions Hx Para 1 Spontaneous abortions Hx # Term Pregnancies Ectopic pregnancies Hx # Pregnancies Multiple births # of living children Past Pregnancies Del. Date Name GA/Weeks Outcome Route Bth Weight Infant Gen Labor Lgth Anesthesia Del Locatn Provider FOB Unknown 2008 [place] live - full term Jaylon LEWIS Const Constitutional: Reports system reviewed and no additional complaints, except as documented Eyes Eyes: Reports system reviewed and no additional complaints, except as documented GI GI: Denies abdominal pain or change in bowel habits : Reports as per HPI Exam Const General: cooperative, no acute distress and well groomed Nutritional Appearance: well nourished Orientation: oriented x3 Resp Effort Inspection: normal respiratory effort External Female Exam: other (inner left labia-1cm inclusion cyst, tender, erythema) Coding Level of Care Code Off vis,est,level 3 Diagnoses Inclusion cyst of vulva N90.7 Assessment and Plan Assessment and Plan (1) Inclusion cyst of vulva: Status: Acute Medications: New cephalexin 500 mg PO BID 14 tabs 0RF 7 days Plan Rx cephalexin Warm soaks Do not manipulate Call with worsening symptoms. 12/18/24 1532 Date Ami Erfaín GRADES 1 6 TUTOR GRADES 1 6 TUTOR-C Cosigner Signature: Date (if applicable) [facility]: [facility] Office Visit (DERMMN ) HERON MAKI ([id number]) 1985 F Date Time Provider Department 09/07/24 4:40 PM BRIANNA ERVIN DERMMN During your visit today, we recorded the following information about you: Brianna Ervin MD 09/07/2024 5:13 PM Signed New Patient Chief Complaint: Vitiligo History of Present Ilness: Heron MAKI is a 39 year old female Patient is here for: 1) Vitiligo Patient has been seen at [facility] and was diagnosed with melasma Location: buttocks, groin, face Duration: since age 15 had spots on scalp, officially diagnosed 4 years ago Symptoms: eyes have been itching since starting opzelura Current treatment: opzelura - used on and off x 7 days, tacrolimus ointment, wears SPF 50 - 70 daily Past treatments : none Pertinent Past Medical History: History of skin cancer or atypical nevi No Specialty Problems Dermatology Problems Striae atrophicae Pertinent Family medical history: History of melanoma No, BCC - grandmother Review of Systems: Constitutional: Denies fever, chills, night sweats, unintentional weight loss. Skin per HPI. No other new/concerning skin growth. Physical Exam: General: well appearing, of stated age, in no acute distress Neurology: alert and oriented times three Psychiatry: in a happy mood Skin: Agrawal skin type: II Skin exam performed of face, arms, legs, buttocks performed. Skin exam normal with the exception of: - subtle depigmented patch mid face/cheeks +wood's lamp - hyperpigmented patches lateral cheeks, forehead, perioral region - upper midline buttocks with depigmented patch +wood's lamp - arms and legs with few scattered hypopigmented macules, -wood's lamp Assessment and Plan: #Vitiligo, <5%TBSA - We discussed the diagnosis, risk/benefits of treatment options and prognosis at length. - We reviewed the autoimmune etiology of the condition. Offered screening for thyroid disorders and anemia - patient recently had completed with PCP. Reviewed labs as above. - We discussed treatment options, including observation, topical therapy, laser therapy, and phototherapy; we also reviewed the unpredictable course of this condition. - Continue opzelura twice daily to affected areas. Discussed to not apply in/around the eyes (no vitiligo present in/around the eyes at this time) - Patient unsure which is the second medication she is using - triamcinolone or tacrolimus. If your topical medication is called triamcinolone, please stop it as this is a strong steroid that is too strong for the face If your topical medication is called tacrolimus, ok to continue - Start once daily non-sedating antihistamine for itching around the eyes - claritin, adam, zyrtec - Advised patient to minimize sun exposure, use sunscreen daily (spf 45 or greater), and wear hats and sun protective clothing. - Photos today for monitoring - We discussed that her vitiligo appears very subtle on the face at this time, and is likely more noticeable due to the contrast with the melasma - Do not need to make any changes to diet, lifestyle etc #Melasma - Recommend to hold on treatment at this time until vitiligo improved due to risk of skin irritation with multiple topicals Return to clinic 2-3 months or sooner if something concerning arises. The documentation for this note was completed by Ariadna Norris RN acting as scribe for Brianna Ervin MD. September 07, 2024 4:12 PM. I agree with the Chief Complaint, ROS, and Past Histories independently gathered by the clinical patient support specialist and the remaining scribed note accurately describes my personal service to the patient. Brianna Ervin MD September 07, 2024 Brianna Ervin MD 09/07/2024 4:53 PM Signed If your topical medication is called triamcinolone, please stop it as this is a strong steroid that is too strong for the face If your topical medication is called tacrolimus, ok to continue Continue your opzelura as prescribed Once daily antihistamine - adam fuentes zyrtebhakti Referring Provider: SELF [200] Allergies As of Date: 09/07/2024 Noted Allergy Reaction ANIMAL DANDER 01/10/2007 PREDNISONE 01/30/2020 4 - Hives 2 - Rash 7 - Swelling Date Reviewed: 09/07/2024 Reviewed by: Ariadna Norris RN - Fully Assessed Reason for Visit: White Spots [932] Primary Visit Diagnosis:Vitiligo [L80] Other Visit Diagnosis:Melasma [L81.1] Prescriptions as of 09/07/2024 - tacrolimus (PROTOPIC) 0.1 % ointment Apply to affected area two times a day. - albuterol (PROVENTIL) 5 mg/mL nebu Inhale 0.5 mL as instructed every 4 hours as needed for wheezing/shortness of breath. - albuterol HFA (VENTOLIN HFA) 90 mcg/actuation inhaler Inhale 2 Puffs as instructed every 4 hours as needed for wheezing/shortness of breath. - OPZELURA 1.5 % cream apply thin laye (more content not included)... Normal [facility] Franco 08-31-2024 LEIGH[facility] Telephone (FAMPWS) HERON MAKI ([id number]) 1985 F Date Time Provider Department 08/31/24 JEOVANY ARGUETA FAMPWS During your visit today, we recorded the following information about you: Rosa Hay RN 08/31/2024 11:33 AM Signed Pt called in and reports she just saw the heading repairer and was diagnosed with autoimmune disease Vitiligo. She states the Seamer Pant[employer]ose said she should see if her PCP would test her for Elsa as the symptoms are very similar and it is also an autoimmune disease. Please call and advise Pt. RAKESH Khalil Jordan L, DO 09/03/2024 7:33 AM Signed Please let her know that I tested her for Elsa's on 08/28 and her thyroid peroxidase antibody is negative as well as all her thyroid function testing labs are normal (free t4, Free t3, TSH) DO Bharti Santos Amanda, RN 09/03/2024 8:15 AM Signed Called and left a voicemail for the Patient to call back and ask for a nurse to receive the providers message. RAKESH Khalil M Robin, RN 09/03/2024 9:32 AM Signed Pt returned call and given provider's message below with verbalized understanding. Allergies As of Date: 08/31/2024 Noted Allergy Reaction ANIMAL DANDER 01/10/2007 PREDNISONE 01/30/2020 4 - Hives 2 - Rash 7 - Swelling Date Reviewed: 05/29/2024 Reviewed by: Kinjal Ogden LPN - Fully Assessed Reason for Visit: Patient Update [1234] Patient Question [6737] Primary Visit Diagnosis:Vitiligo [L80] Other Visit Diagnosis:Elevated TSH [R79.89] Order(s):THYROID PEROXIDASE ANTIBODY [SQMICRO] Order #: [id number] FUTURE T4 FREE/FREE THYROXINE [SQFT4] Order #: [id number] FUTURE T3, FREE [SQFREET3] Order #: [id number] FUTURE THYROID STIMULATING HORMONE [SQTSH] Order #: [id number] FUTURE Prescriptions as of 09/03/2024 - albuterol (PROVENTIL) 5 mg/mL nebu Inhale 0.5 mL as instructed every 4 hours as needed for wheezing/shortness of breath. - albuterol HFA (VENTOLIN HFA) 90 mcg/actuation inhaler Inhale 2 Puffs as instructed every 4 hours as needed for wheezing/shortness of breath. - OPZELURA 1.5 % cream apply thin layer to affected area twice a day - fluticasone-salmeterol (ADVAIR DISKUS) 250-50 mcg/dose inhaler Inhale 1 Puff as instructed twice daily. Rinse and gargle mouth after use with water. - topiramate (TOPAMAX) 50 mg tablet Take 50 mg by mouth once daily. - lamoTRIgine (LAMICTAL) 150 mg tablet Take 1 tablet by mouth twice daily. - hydrOXYzine HCl (ATARAX) 25 mg tablet Take 1 tablet by mouth twice daily. 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] 02/23/2007 GENERALIZED ANXIETY DIS [F41.1] 02/23/2007 STRIAE ATROPHICAE [L90.6] 07/08/2008 Depressive disorder [F32.A] 05/12/2021 Well adult exam [Z00.00] 05/12/2021 S/P laparoscopic appendectomy [Z90.49] 07/28/2022 Concentration deficit [R41.840] 07/28/2022 Pure hypercholesterolemia [E78.00] 07/28/2022 Elevated TSH [R79.89] 07/28/2022 Elevated LFTs [R79.89] 07/28/2022 S/P partial colectomy [Z90.49] 07/28/2022 Mucocele, 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] 07/28/2022 Encounter Status:Closed by Tye MCNEAL on 09/03/24 Normal [facility] 25(OH)D3 Mel 2024 25-hydroxyvitamin D3 [Mass/Vol] 25.6 ng/mL Low 31.0-80.0 [facility] Comment on above: Order Comment: Speci men Type: BLOOD SPECIMEN Ordering Facility: [facility] Address: [address] [place] [address] Performed By: #### 1 989-3 #### [facility] CLIA [id number] [address] [place] [address] [place] CBC W Auto Differential pane l (Bld)on 08-28-2024 Basophils (Bld) [#/Vol] 0.05 10*3/uL Normal <0.11 [facility] Comment on above: Order Comment: Speci men Type: BLOOD SPECIMEN Ordering Facility: [facility] Address: [address] [place] [address] Performed By: #### 1 989-3 #### [facility] CLIA [id number] [address] [place] [address] [place] Basophils/100 WBC (Bld) 1.0 % Normal C [facility] Comment on above: Order Comment: Speci men Type: BLOOD SPECIMEN Ordering Facility: [facility] Address: [address] [place] [address] Performed By: #### 1 989-3 #### [facility] CLIA [id number] [address] [place] [address] [place] Differential cell count method Nom (Bld) Auto Normal [facility] Comment on above: Order Comment: Speci men Type: BLOOD SPECIMEN Ordering Facility: [facility] Address: [address] [place] [address] Performed By: #### 1 989-3 #### [facility] CLIA [id number] [address] [place] [address] [place] Eosinophils (Bld) [#/Vol] 0.34 10*3/uL Normal <0.46 [facility] Comment on above: Order Comment: Speci men Type: BLOOD SPECIMEN Ordering Facility: [facility] Address: [address] [place] [address] Performed By: #### 1 989-3 #### [facility] CLIA [id number] [address] [place] [address] [place] Eosinophils/100 WBC (Bld) 6.9 % Normal [facility] Comment on above: Order Comment: Speci men Type: BLOOD SPECIMEN Ordering Facility: [facility] Address: [address] [place] [address] Performed By: #### 1 989-3 #### [facility] CLIA [id number] [address] [place] [address] [place] Erythrocyte distribution width (RBC) [Ratio] 13.7 % Normal 11.5-15.0 [facility] Comment on above: Order Comment: Speci men Type: BLOOD SPECIMEN Ordering Facility: [facility] Address: [address] [place] [address] Performed By: #### 1 989-3 #### [facility] CLIA [id number] [address] [place] [address] [place] Hematocrit (Bld) [Volume fraction] 41.0 % Normal 36.0-46.0 [facility] Comment on above: Order Comment: Speci men Type: BLOOD SPECIMEN Ordering Facility: [facility] Address: [address] [place] [address] Performed By: #### 1 989-3 #### [facility] CLIA [id number] [address] [place] [address] [place] Hemoglobin (Bld) [Mass/Vol] 13.6 g/dL Normal 11.5-15.5 [facility] Comment on above: Order Comment: Speci men Type: BLOOD SPECIMEN Ordering Facility: [facility] Address: [address] [place] [address] Performed By: #### 1 989-3 #### [facility] CLIA [id number] [address] [place] [address] [place] Immature granulocytes (Bld) [#/Vol] 10*3/uL Normal <0.10 [facility] Comment on above: Order Comment: Speci men Type: BLOOD SPECIMEN Ordering Facility: [facility] Address: [address] [place] [address] Performed By: #### 1 989-3 #### [facility] CLIA [id number] [address] [place] [address] [place] Immature granulocytes/100 WBC (Bld) 0.2 % Normal [facility] Comment on above: Order Comment: Speci men Type: BLOOD SPECIMEN Ordering Facility: [facility] Address: [address] [place] [address] Performed By: #### 1 989-3 #### [facility] CLIA [id number] [address] [place] [address] [place] Lymphocytes (Bld) [#/Vol] 1.76 10*3/uL Normal 1.00-4.00 [facility] Comment on above: Order Comment: Speci men Type: BLOOD SPECIMEN Ordering Facility: [facility] Address: [address] [place] [address] Performed By: #### 1 989-3 #### [facility] CLIA [id number] [address] [place] [address] [place] Lymphocytes/100 WBC (Bld) 35.7 % Normal [facility] Comment on above: Order Comment: Speci men Type: BLOOD SPECIMEN Ordering Facility: [facility] Address: [address] [place] [address] Performed By: #### 1 989-3 #### [facility] CLIA [id number] [address] [place] [address] [place] MCH (RBC) [Entitic mass] 30.4 pg Normal 26.0-34.0 [facility] Comment on above: Order Comment: Speci men Type: BLOOD SPECIMEN Ordering Facility: [facility] Address: [address] [place] [address] Performed By: #### 1 989-3 #### [facility] CLIA [id number] [address] [place] [address] [place] MCHC (RBC) [Mass/Vol] 33.2 g/dL Normal 30.5-36.0 [facility] Comment on above: Order Comment: Speci men Type: BLOOD SPECIMEN Ordering Facility: [facility] Address: [address] [place] [address] Performed By: #### 1 989-3 #### [facility] CLIA [id number] [address] [place] [address] [place] MCV (RBC) [Entitic vol] 91.5 fL Normal 80.0-100.0 C [facility] Comment on above: Order Comment: Speci men Type: BLOOD SPECIMEN Ordering Facility: [facility] Address: [address] [place] [address] Performed By: #### 1 989-3 #### [facility] CLIA [id number] [address] [place] [address] [place] Monocytes (Bld) [#/Vol] 0.40 10*3/uL Normal <0.87 [facility] Comment on above: Order Comment: Speci men Type: BLOOD SPECIMEN Ordering Facility: [facility] Address: [address] [place] [address] Performed By: #### 1 989-3 #### [facility] CLIA [id number] [address] [place] [address] [place] Monocytes/100 WBC (Bld) 8.1 % Normal C [facility] Comment on above: Order Comment: Speci men Type: BLOOD SPECIMEN Ordering Facility: [facility] Address: [address] [place] [address] Performed By: #### 1 989-3 #### [facility] CLIA [id number] [address] [place] [address] [place] Neutrophils (Bld) [#/Vol] 2.37 10*3/uL Normal 1.45-7.50 [facility] Comment on above: Order Comment: Speci men Type: BLOOD SPECIMEN Ordering Facility: [facility] Address: [address] [place] [address] Performed By: #### 1 989-3 #### [facility] CLIA [id number] [address] [place] [address] [place] Neutrophils/100 WBC (Bld) 48.1 % Normal [facility] Comment on above: Order Comment: Speci men Type: BLOOD SPECIMEN Ordering Facility: [facility] Address: [address] [place] [address] Performed By: #### 1 989-3 #### [facility] CLIA [id number] [address] [place] [address] [place] Nucleated RBC (Bld) [#/Vol] 10*3/uL Normal <0.01 [facility] Comment on above: Order Comment: Speci men Type: BLOOD SPECIMEN Ordering Facility: [facility] Address: [address] [place] [address] Performed By: #### 1 989-3 #### [facility] CLIA [id number] [address] [place] [address] [place] Nucleated RBC/100 WBC (Bld) [Ratio] 0.0 /100 WBC Normal [facility] Comment on above: Order Comment: Speci men Type: BLOOD SPECIMEN Ordering Facility: [facility] Address: [address] [place] [address] Performed By: #### 1 989-3 #### [facility] CLIA [id number] [address] [place] [address] [place] Platelet mean volume (Bld) [Entitic vol] 11.9 fL Normal 9.0-12.7 [facility] Comment on above: Order Comment: Speci men Type: BLOOD SPECIMEN Ordering Facility: [facility] Address: [address] [place] [address] Performed By: #### 1 989-3 #### [facility] CLIA [id number] [address] [place] [address] [place] Platelets (Bld) [#/Vol] 343 10*3/uL Normal 150-400 [facility] Comment on above: Order Comment: Speci men Type: BLOOD SPECIMEN Ordering Facility: [facility] Address: [address] [place] [address] Performed By: #### 1 989-3 #### [facility] CLIA [id number] [address] [place] [address] [place] RBC (Bld) [#/Vol] 4.48 10*6/uL Normal 3.90-5.20 [facility] Comment on above: Order Comment: Speci men Type: BLOOD SPECIMEN Ordering Facility: [facility] Address: [address] [place] [address] Performed By: #### 1 989-3 #### [facility] CLIA [id number] [address] [place] [address] [place] WBC (Bld) [#/Vol] 4.93 10*3/uL Normal 3.70-11.00 [facility] Comment on above: Order Comment: Speci men Type: BLOOD SPECIMEN Ordering Facility: [facility] Address: [address] [place] [address] Performed By: #### 1 989-3 #### [facility] CLIA [id number] [address] [place] [address] [place] Comprehensive metabolic 2000 panelon 08-28-2024 Albumin [Mass/Vol] 4.7 g/dL Normal 3.9-4.9 [facility] Comment on above: Order Comment: Speci men Type: BLOOD SPECIMEN Ordering Facility: [facility] Address: [address] [place] [address] Performed By: #### 1 989-3 #### [facility] CLIA [id number] [address] [place] [id number] [place] ALP [Catalytic activity/Vol] 44 U/L Normal 34-123 [facility] Comment on above: Order Comment: Speci men Type: BLOOD SPECIMEN Ordering Facility: [facility] Address: [address] [place] [address] Performed By: #### 1 989-3 #### [facility] CLIA [id number] [address] [place], [place] [address] [place] ALT [Catalytic activity/Vol] 19 U/L Normal 7-38 [facility] Comment on above: Order Comment: Speci men Type: BLOOD SPECIMEN Ordering Facility: [facility] Address: [address] [place] [address] Performed By: #### 1 989-3 #### [facility] CLIA [id number] [address] [place] [address] [place] Anion gap [Moles/Vol] 11 mmol/L Normal 8-15 [facility] Comment on above: Order Comment: Speci men Type: BLOOD SPECIMEN Ordering Facility: [facility] Address: [address] [place] [address] Performed By: #### 1 989-3 #### [facility] CLIA [id number] [address] [place] [address] [place] AST [Catalytic activity/Vol] 22 U/L Normal 13-35 [facility] Comment on above: Order Comment: Speci men Type: BLOOD SPECIMEN Ordering Facility: [facility] Address: [address] [place], [place] [address] Performed By: #### 1 989-3 #### [facility] CLIA [id number] [address] [place], [place] [address] [place] Bilirubin [Mass/Vol] 0.5 mg/dL Normal 0.2-1.3 [facility] Comment on above: Order Comment: Speci men Type: BLOOD SPECIMEN Ordering Facility: [facility] Address: [address] [place], [place] [id number] Performed By: #### 1 989-3 #### [facility] CLIA [id number] [address] [place], [place] [id number] [place] Calcium [Mass/Vol] 9.5 mg/dL Normal 8.5-10.2 [facility] Comment on above: Order Comment: Speci men Type: BLOOD SPECIMEN Ordering Facility: [facility] Address: [address] [place], [place] [id number] Performed By: #### 1 989-3 #### [facility] CLIA [id number] [address] [place], [place] [address] [place] Chloride [Moles/Vol] 104 mmol/L Normal 98-107 [facility] Comment on above: Order Comment: Speci men Type: BLOOD SPECIMEN Ordering Facility: [facility] Address: [address] [place], [place] [address] Performed By: #### 1 989-3 #### [facility] CLIA [id number] [address] [place], [place] [address] [place] CO2 [Moles/Vol] 24 mmol/L Normal 22-30 [facility] Comment on above: Order Comment: Speci men Type: BLOOD SPECIMEN Ordering Facility: [facility] Address: [address] [place], [place] [address] Performed By: #### 1 989-3 #### [facility] CLIA [id number] [address] [place], [place] [address] [place] Creatinine [Mass/Vol] 0.71 mg/dL Normal 0.58-0.96 [facility] Comment on above: Order Comment: Speci men Type: BLOOD SPECIMEN Ordering Facility: [facility] Address: [address] [place], [place] [id number] Performed By: #### 1 989-3 #### [facility] CLIA [id number] [address] [place] [address] [place] Creatinine and Glomerular filtration rate.predicted panel (S/P/Bld) 112 mL/min/1.73m??? Normal >=60 [facility] Comment on above: Order Comment: Drew huddleston Type: BLOOD SPECIMEN Ordering Facility: [facility] Address: [address] [place] [address] Result Comment: Lorena mated Glomerular Filtration Rate (eGFR) is calculated using the 2020 CKD-EPI creatinine equation. This equation utilizes serum creatinine, sex, and age as parameters. The creatinine assay has traceable calibration to isotope dilution-mass spectrometry. Refer to KDIGO guidelines for clinical interpretation. In patients with unstable renal function, e.g. those with acute kidney injury, the eGFR may not accurately reflect actual GFR. Performed By: #### 1 989-3 #### [facility] CLIA [id number] [address] [place] [address] [place] Glucose [Mass/Vol] 99 mg/dL Normal 74-99 [facility] Comment on above: Order Comment: Drew huddleston Type: BLOOD SPECIMEN Ordering Facility: [facility] Address: [address] [place] [address] Result Comment: The [place] Diabetes Association (ADA) provides guidance for cutoff values for fasting glucose and random glucose. The ADA defines fasting as no caloric intake for at least 8 hours. Fasting plasma glucose results between 100 to 125 mg/dL indicate increased risk for diabetes (prediabetes). Fasting plasma glucose results greater than or equal to 126 mg/dL meet the criteria for diagnosis of diabetes. In the absence of unequivocal hyperglycemia, results should be confirmed by repeat testing. In a patient with classic symptoms of hyperglycemia or hyperglycemic crisis, random plasma glucose results greater than or equal to 200 mg/dL meet the criteria for diagnosis of diabetes. Reference: Standards of Medical Care in Diabetes 2016, [place] Diabetes Association. Diabetes Care. 2016.39(Suppl 1). Performed By: #### 1 989-3 #### [facility] CLIA [id number] [address] [place] [address] [place] Potassium [Moles/Vol] 4.1 mmol/L Normal 3.7-5.1 [facility] Comment on above: Order Comment: Speci men Type: BLOOD SPECIMEN Ordering Facility: [facility] Address: [address] [place] [address] Performed By: #### 1 989-3 #### [facility] CLIA [id number] [address] [place] [address] [place] Protein [Mass/Vol] 6.8 g/dL Normal 6.3-8.0 [facility] Comment on above: Order Comment: Speci men Type: BLOOD SPECIMEN Ordering Facility: [facility] Address: [address] [place] [address] Performed By: #### 1 989-3 #### [facility] CLIA [id number] [address] [place] [address] [place] Sodium [Moles/Vol] 139 mmol/L Normal 136-144 [facility] Comment on above: Order Comment: Speci men Type: BLOOD SPECIMEN Ordering Facility: [facility] Address: [address] [place] [address] Performed By: #### 1 989-3 #### [facility] CLIA [id number] [address] [place] [address] [place] Urea nitrogen [Mass/Vol] 11 mg/dL Normal 7-21 [facility] Comment on above: Order Comment: Speci men Type: BLOOD SPECIMEN Ordering Facility: [facility] Address: [address] [place] [address] Performed By: #### 1 989-3 #### [facility] CLIA [id number] [address] [place], [place] [id number] [place] HbA1c (Bld)on 08-28-2024 Average glucose Estimated from glycated hemoglobin (Bld) [Mass/Vol] 97 mg/dL Normal [facility] Comment on above: Order Comment: Speci men Type: BLOOD SPECIMEN Ordering Facility: [facility] Address: [address] [place] [address] Result Comment: eAG: (Estimated average glucose) is a calculated value from HgbA1c and is compliance representative of the average blood glucose level in the last 2-3 month period. Performed By: #### 1 989-3 #### [facility] CLIA [id number] [address] [place] [address] [place] HbA1c (Bld) [Mass fraction] 5.0 % Normal 4.3-5.6 [facility] Comment on above: Order Comment: Speci men Type: BLOOD SPECIMEN Ordering Facility: [facility] Address: [address] [place] [address] Result Comment: [place] Diabetes Association guidelines indicate that patients with HgbA1c in the range 5.7-6.4% are at increased risk for development of diabetes, and intervention by lifestyle modification may be beneficial. HgbA1c greater or equal to 6.5% is considered diagnostic of diabetes. Performed By: #### 1 989-3 #### [facility] CLIA [id number] [address] [place] [address] [place] Lipid 1996 panelon 5 Cholesterol [Mass/Vol] 276 mg/dL High <200 [facility] Comment on above: Order Comment: Drew huddleston Type: BLOOD SPECIMEN Ordering Facility: [facility] Address: [address] [place] [address] Result Comment: <200 mg/dL, Desirable 200-239 mg/dL, Borderline high >239 mg/dL, High Performed By: #### 1 989-3 #### [facility] CLIA [id number] [address] [place] [address] [place] Cholesterol in HDL [Mass/Vol] 99 mg/dL Normal >39 [facility] Comment on above: Order Comment: Drew men Type: BLOOD SPECIMEN Ordering Facility: [facility] Address: [address] [place] [address] Result Comment: 40-5 9 mg/dL, Acceptable >59 mg/dL, High: Negative risk factor for coronary heart disease <40 mg/dL, Low: Positive risk factor for coronary heart disease Performed By: #### 1 989-3 #### [facility] CLIA [id number] [address] [place] [address] [place] Cholesterol in LDL [Mass/Vol] 134 mg/dL High <100 [facility] Comment on above: Order Comment: Speci men Type: BLOOD SPECIMEN Ordering Facility: [facility] Address: [address] [place] [address] Result Comment: <100 mg/dL, Optimal 100-129 mg/dL, Near optimal/above optimal 130-159 mg/dL, Borderline high 160-189 mg/dL, High >189 mg/dL, Very high Secondary prevention optimal LDL Cholesterol levels are recommended to be <70 mg/dL LDL cholesterol is calculated using the Aquino-NIH equation. Performed By: #### 1 989-3 #### [facility] [place] [id number] [address] [place] [address] [place] Cholesterol in LDL/Cholesterol in HDL [Mass ratio] 1.35 {ratio} Normal <2.54 [facility] Comment on above: Order Comment: Drew huddleston Type: BLOOD SPECIMEN Ordering Facility: [facility] Address: [address] [place] [address] Result Comment: Refe rence: 1. National Cholesterol Education Program ATP III Guideline At-A-Glance Quick Desk Reference: National Heart, Lung, and Blood [place]. National Institutes of Health. 2001: NIH Publication No. 01-3305. 2. An International Atherosclerosis Society position paper: global recommendations for the management of dyslipidemia: executive summary, Atherosclerosis. 2014: 232(2):410-413. Performed By: #### 1 989-3 #### [facility] CLIA [id number] [address] [place] [address] [place] Cholesterol in VLDL [Mass/Vol] 44 mg/dL High <30 [facility] Comment on above: Order Comment: Drew huddleston Type: BLOOD SPECIMEN Ordering Facility: [facility] Address: [address] [place] [address] Performed By: #### 1 989-3 #### [facility] CLIA [id number] [address] [place] [address] [place] Cholesterol non HDL [Mass/Vol] 177 mg/dL High <130 [facility] Comment on above: Order Comment: Speci men Type: BLOOD SPECIMEN Ordering Facility: [facility] Address: [address] [place] [address] Result Comment: <130 mg/dL, Optimal 130-159 mg/dL, Near optimal/above optimal 160-189 mg/dL, Borderline high 190-219 mg/dL, High >219 mg/dL, Very high Secondary prevention optimal non HDL Cholesterol levels are recommended to be <100 mg/dL Performed By: #### 1 989-3 #### [facility] CLIA [id number] [address] [place] [address] [place] Cholesterol.total/Adina sterol in HDL [Mass ratio] 2.79 {ratio} Normal <5.10 [facility] Comment on above: Order Comment: Speci men Type: BLOOD SPECIMEN Ordering Facility: [facility] Address: [address] [place] [address] Performed By: #### 1 989-3 #### [facility] CLIA [id number] [address] [place] [address] [place] FASTING TIME 11 hrs Normal [facility] Comment on above: Order Comment: Speci men Type: BLOOD SPECIMEN Ordering Facility: [facility] Address: [address] [place] [address] Performed By: #### 1 989-3 #### [facility] CLIA [id number] [address] [place] [address] [place] Triglyceride [Mass/Vol] 247 mg/dL High <150 [facility] Comment on above: Order Comment: Speci men Type: BLOOD SPECIMEN Ordering Facility: [facility] Address: [address] [place] [address] Result Comment: <150 mg/dL, Normal 150-199 mg/dL, Borderline high 200-499 mg/dL, High >499 mg/dL, Very high Performed By: #### 1 989-3 #### [facility] CLIA [id number] [address] [place] [address] [place] T3Free SerPl-mCncon 08-29-19 25 Free T3 [Mass/Vol] 2.7 pg/mL Normal 2.3-4.1 [facility] Comment on above: Order Comment: Speci men Type: BLOOD SPECIMEN Ordering Facility: [facility] Address: [address] [place] [address] Performed By: #### 1 989-3 #### [facility] CLIA [id number] [address] [place] [address] [place] T4 Free SerPl-mCncon 025 Free T4 [Mass/Vol] 1.3 ng/dL Normal 0.9-1.7 [facility] Comment on above: Order Comment: Speci flaquito Type: BLOOD SPECIMEN Ordering Facility: [facility] Address: [address] [place] [address] Performed By: #### 1 989-3 #### [facility] CLIA [id number] [address] [place] [address] [place] THYROID PEROXIDASE ANTIBODYo n 08-28-2024 TPO Ab Qn [IU]/mL Normal <5.6 [facility] Comment on above: Order Comment: Speci men Type: BLOOD SPECIMEN Ordering Facility: [facility] Address: [address] [place] [address] Result Comment: Thyr oid Peroxidase Antibody test is used as an aid in diagnosis of autoimmune thyroid disease. Clinical correlation is required. Performed By: #### M ICRO #### [facility] CLIA [id number] [address] [place] [address] [place] TSH SerPl-aCncon 08-28-2024 TSH Qn 1.410 m[IU]/L Normal 0.270-4.200 [facility] Comment on above: Order Comment: Drew huddleston Type: BLOOD SPECIMEN Ordering Facility: [facility] Address: [address] [place] [address] Result Comment: If t he patient is , TSH reference range varies by gestational period: First Trimester (weeks 9-12): 0.180-2.990 mIU/L Second Trimester: 0.110-3.980 mIU/L Third Trimester: 0.480-4.710 mIU/L Jaylon Fofana et al. A Practical Approach for the Verifications and Determination of Site- and Trimester-Specific Reference Intervals for Thyroid Function tests in . Thyroid, 2019:29:3:412-420. Adrian E, et al. 2017 Guidelines of the [place] Thyroid Association for the Diagnosis and Management of Thyroid Disease during and the . Thyroid, 2017:27:3:315-389. Performed By: #### 1 989-3 #### [facility] CLIA [id number] [address] [place] [address] [place] Vit B12 [facility] 06-17-2 025 Cobalamin (Vitamin B12) [Mass/Vol] 1082 pg/mL Normal 232-1245 [facility] Comment on above: Order Comment: Drew huddleston Type: BLOOD SPECIMEN Ordering Facility: [facility] Address: [address] [place] [address] Performed By: #### 1 989-3 #### [facility] CLIA [id number] [address] [place] [address] [place] Continuous Improvement Engineer Office Visit Reporton 07-20-2024 Continuous Improvement Engineer Office Visit Report [facility] [address], [address] [place] [address] OFFICE VISIT Date of Service: 07/20/24 MR#: [id number] Acct: [id number] Name: HERON MAKI Rep #: [id number] : 1985 Provider: Dr. Shilpi abernathy MD Age/Sex: 39/F Location: [facility] [place] [place] Status: Signed Intake Vital Signs 08/27/24 14:48 07/20/24 09:54 Height 5 ft 4 in 5 ft 4 in Weight: 138 lb 8 oz BMI 23.8 BP 119/80 Intake Visit Reasons: menorrhagia/ surgical consult Blueprint Assembler Required: No Is patient in pain?: No Allergies prednisone Adverse Reaction (Verified 07/20/24 09:57) Swelling Medications ???Medication ???Instructions ???Recorded ???Confirmed ???Type cyanocobalamin (vitamin B-12) 500 500 mcg PO DAILY@0800 REPLACEMENT 01/18/13 07/20/24 History mcg tablet hydroxyzine HCl 10 mg tablet 10 mg PO TID PRN Anxiety 12/27/19 07/20/24 History multivitamin with minerals 1 tab PO DAILY 12/27/19 07/20/24 H istory (Hair,Skin and Nails tablet) lamotrigine 200 mg tablet 200 mg PO BID 05/01/20 07/20/24 Hi story (Lamictal) naproxen 500 mg tablet 500 mg PO BID PRN pain #30 tabs 07/20/24 Rx ruxolitinib 1.5 % topical cream 1 applic topical BID PRN 07/20/24 07/20/24 History (Opzelura) Is last menstrual period known: Yes Last Menstrual Period: 06/23/24 (periods have been heavier and irregular, will stop and start up again) Post menopausal: No Patient : No : No PFSH Medical History History of steroid therapy Back pain due to injury Injury of head and neck Substance abuse Alcohol abuse Anxiety Depression Former smoker Asthma Migraines Anxiety and depression Surgical History History of partial colectomy History of appendectomy S/P breast biopsy, left delivery delivered H/O dilation and curettage ankle surgery History of tonsillectomy and adenoidectomy Family History Grandfather Cancer prostate Grandmother Cancer skin Brother Asthma Mother Autoimmune disease Social History Smoking Status: Former smoker alcohol intake: never substance use type: does not use caffeine: Yes what type of physical activity do you participate in: walking, running and yoga frequency: 5-6 times per week seatbelt use: always do you feel safe at home: Yes additional social history: Cesario- Protohistorian HPI menorrhagia/ surgical consult Details: HERON MAKI is a 39 year old who presents for heavy menses, lasting several days, pauses fora day and then resumes for several days and is light and tapers off. she has some crmaping with it. she has a polyp seen on US in june. she is having some constipation. she may be interested in sterilization Female Reproductive History Last Menstrual Period: 06/23/24 (periods have been heavier and irregular, will stop and start up again) Menopausal Symptoms: No night sweats History 2 Elective abortions Hx Para 1 Spontaneous abortions Hx # Term Pregnancies Ectopic pregnancies Hx # Pregnancies Multiple births # of living children Past Pregnancies Del. Date Name GA/Weeks Outcome Route Bth Weight Gen [facility] Unknown 2008 Mary live - full term Jaylon LEWIS Const Constitutional: Reports weight gain; Denies fatigue, night sweats or weight loss ENT ENT: Reports system reviewed and no additional complaints, except as documented Cardio Card: Denies chest pain Resp Resp: Denies cough or dyspnea GI GI: Reports as per HPI and constipation; Denies abdominal pain, nausea or vomiting : Denies nipple discharge, urinary frequency, urinary incontinence, urinary hesitancy, urinary urgency, vaginal discharge, vaginal dryness, vaginal odor or vaginal pruritus Musc Musc: Denies arthralgias, back pain or muscle weakness Skin Skin/Breast: Denies alopecia, change in hair, dry skin, breast mass, breast pain, breast skin changes or nipple discharge Neuro Neuro: Reports system reviewed and no additional complaints, except as documented Psych Psych: Reports system reviewed and no additional complaints, except as documented Endo Endo: Denies cold intolerance, excessive sweating, heat intolerance or polydipsia Kunal/Lymph Hematologic/Lymphatic: Denies easy bleeding, Denies easy bruising and Denies lymphadenopathy Exam Const General: cooperative, healthy appearing, comfortable and no acute distress Orientation: alert HENMT Head: normal to inspection and n (more content not included)... Normal [facility] Absolute neutrophil countOrd ered By: Shilpi Boyle on 06-18-2024 Neutrophils (Bld) [#/Vol] 2.5 10*3/uL 2.0-7.7 [facility] Basophil percentageOrdered B y: Shilpi Boyle on 06-18-2024 Basophils/100 WBC (Bld) 1.0 % 0-1 [facility] CBC W/Diff, Automatedon Absolute Lymph 1.70 X10 3/uL Normal 0.83-4.51 [facility] Comment on above: Performed By: #### L 100.0100, L501.9520 #### [facility] [address] [place], [address] Absolute Neut 2.5 X10 3/uL Normal 2.0-7.7 [facility] Comment on above: Performed By: #### L 100.0100, L501.9520 #### [facility] [address] [place], [address] Basophils/100 WBC (Bld) 1.0 % Normal 0-1 [facility] Comment on above: Performed By: #### L 100.0100, L501.9520 #### [facility] [address] [place], [address] Eosinophils/100 WBC (Bld) 1.2 % Normal 0-5 [facility] Comment on above: Performed By: #### L 100.0100, L501.9520 #### [facility] [address] [place], [address] Erythrocyte distribution width (RBC) [Ratio] 13.3 % Normal 11.6-14.6 [facility] Comment on above: Performed By: #### L 100.0100, L501.9520 #### [facility] [address] [place], [address] Hematocrit (Bld) [Volume fraction] 36.3 % Low 37-47 [facility] Comment on above: Performed By: #### L 100.0100, L501.20 #### [facility] [address] [place], [address] Hemoglobin (Bld) [Mass/Vol] 12.2 g/dL Normal 12.0-15.0 [facility] Comment on above: Performed By: #### L 100.0100, L501.9520 #### [facility] [address] [place], [address] IG% 0.200 Normal 0.0-0.9 [facility] Comment on above: Result Comment: IG% - Immature Granulocytes (promyelocytes, myelocytes and metamyelocytes) > 1% indicates that a LEFT SHIFT is Present. Performed By: #### L 100.0100, L501.9520 #### [facility] [address] [place], [address] Lymphocytes/100 WBC (Bld) 34.9 % Normal 19-41 [facility] Comment on above: Performed By: #### L 100.0100, L501.9520 #### [facility] [address] [place], [address] MCH (RBC) [Entitic mass] 30.6 pg Normal 27.0-32.0 [facility] Comment on above: Performed By: #### L 100.0100, L501.9520 #### [facility] [address] [place], [address] MCHC (RBC) [Mass/Vol] 33.6 g/dL Normal 32-36 [facility] Comment on above: Performed By: #### L 100.0100, L501.9520 #### [facility] [address] [place], [address] MCV (RBC) [Entitic vol] 91.0 fL Normal 81-99 [facility] Comment on above: Performed By: #### L 100.0100, L5.9520 #### [facility] [address] [place], [address] Monocytes/100 WBC (Bld) 10.5 % High 0-10 [facility] Comment on above: Performed By: #### L 100.0100, L5.20 #### [facility] [address] [place], [address] Neutrophils/100 WBC (Bld) 52.2 % Normal 47-70 [facility] Comment on above: Performed By: #### L 100.0100, L5.20 #### [facility] [address] [place], [address] Nucleated RBC (Bld) [#/Vol] 0 10*3/uL Normal 0-5 [facility] Comment on above: Performed By: #### L 100.0100, L5.9519 #### [facility] [address] [place], [address] Platelet mean volume (Bld) [Entitic vol] 10.3 fL Normal 6.2-12.0 [facility] Comment on above: Performed By: #### L 100.0100, L5.20 #### [facility] [address] [place], [address] Platelets (Bld) [#/Vol] 266 10*3/uL Normal 150-450 [facility] Comment on above: Performed By: #### L 100.0100, L5.20 #### [facility] [address] [place], [address] RBC (Bld) [#/Vol] 3.99 10*6/uL Low 4.2-5.4 [facility] Comment on above: Performed By: #### L 100.0100, L5.20 #### [facility] [address] [place], [address] RDW SD 44.4 fl High 35.1-43.9 [facility] Comment on above: Performed By: #### L 100.0100, L501.9520 #### [facility] [address] [place], [address] WBC (Bld) [#/Vol] 4.9 10*3/uL Normal 4.4-11.0 [facility] Comment on above: Performed By: #### L 100.0100, L501.9520 #### [facility] [address] [place], [address] Eosinophil percentageOrdered By: Shilpi Boyle on 06-18-2024 Eosinophils/100 WBC (Bld) 1.2 % 0-5 [facility] Erythrocyte distribution wid th (RBC) [Ratio]Ordered By: Shilpi Boyle on 06-18-2024 Erythrocyte distribution width (RBC) [Entitic vol] 44.4 fL High 35.1-43.9 [facility] Erythrocyte distribution wid th ratioOrdered By: Shilpi Boyle on 06-18-2024 Erythrocyte distribution width (RBC) [Ratio] 13.3 % 11.6-14.6 [facility] Hematocrit Auto (Bld) [Volum e fraction]Ordered By: Shilpi Boyle on 06-18-2024 Hematocrit (Bld) [Volume fraction] 36.3 % Low 37-47 [facility] Hemoglobin measurementOrdere d By: Shilpi Boyle on 06-18-2024 Hemoglobin (Bld) [Mass/Vol] 12.2 g/dL 12.0-15.0 [facility] Immature granulocytes/100 WB C Auto (Bld)Ordered By: Shilpi Boyle on 06-18-2024 Immature granulocytes/100 WBC (Bld) 0.200 % 0.0-0.9 [facility] Comment on above: IG% - Immature Granu locytes (promyelocytes, myelocytes and metamyelocytes) > 1% indicates that a LEFT SHIFT is Present. Lymphocytes Auto (Unsp spec) [#/Vol]Ordered By: Shilpi Boyle on 06-18-2024 Lymphocytes (Bld) [#/Vol] 1.70 10*3/uL 0.83-4.51 [facility] Lymphocytes/100 WBC Auto (Un sp spec)Ordered By: Shilpi Boyle on 06-18-2024 Lymphocytes/100 WBC (Bld) 34.9 % 19-41 [facility] MCV (mean corpuscular volume ) determinationOrdered By: Shilpi Boyle on 06-18-2024 MCV (RBC) [Entitic vol] 91.0 fL 81-99 [facility] Mean corpuscular hemoglobin (MCH) determinationOrdered By: Shilpi Boyle on 06-18-2024 MCH (RBC) [Entitic mass] 30.6 pg 27.0-32.0 [facility] Mean corpuscular hemoglobin concentration (MCHC) determinationOrdered By: Shilpi Boyle on 06-18-2024 MCHC (RBC) [Mass/Vol] 33.6 g/dL 32-36 [facility] Mean platelet volume determi nationOrdered By: Shilpi Boyle on 06-18-2024 Platelet mean volume (Bld) [Entitic vol] 10.3 fL 6.2-12.0 [facility] Monocyte percentageOrdered B y: Shilpi Boyle on 06-18-2024 Monocytes/100 WBC (Bld) 10.5 % High 0-10 [facility] Neutrophil percentageOrdered By: Shilpi Boyle on 06-18-2024 Neutrophils/100 WBC (Bld) 52.2 % 47-70 [facility] Nucleated red blood cell per centageOrdered By: Shilpi Boyle on 06-18-2024 Nucleated RBC/100 WBC (Bld) [Ratio] 0 % 0-5 [facility] Pelvic w/ Transvaginalon Pelvic w/ Transvaginal [facility] [address] [place] [address] Pelvic w/ Transvaginal MR#: [id number] Acct: [id number] Name: HERON MAKI Rep #: [id number] : 1985 F 39 From: Dimitry Gillis i DO PCP: Dr. Jeovany Argueta, DO Status: REG CLI Study: Pelvic w/ Transvaginal Date of Exam: 06/18/24 Exam# [id number] Ordering Dr: Shilpi Boyle PROCEDURE: Pelvic ultrasound transabdominal and transvaginal. 06/18/2024 REASON FOR EXAM: HEAVY MENSES TECHNIQUE: Transabdominal and transvaginal pelvic ultrasound images were obtained. COMPARISON: None available FINDINGS: The included portions of the urinary bladder show no specific abnormality. The uterus is anteverted measuring 10.3 x 6.0 x 5.2 cm. No discrete uterine myometrial or cervical mass is demonstrated. The endometrium measures 2.1 cm in total thickness. On transvaginal images, there is suggestion of an ovoid lesion within the endo myometrial canal, isoechoic to the peripheral margins, measuring 2.1 x 2.2 x 1.2 cm, was with some internal vascularity on Doppler evaluation. The left ovary is 4.0 x 2.2 x 2.6 cm. A few left ovarian follicles are present, the largest at 1.7 cm. There appears to be blood flow in the left ovary on Doppler evaluation. The right ovary is 3.5 x 2.1 x 2.4 cm. Slightly hyperechoic mixed echogenicity lesion central right ovary measuring 2.2 cm could represent a solid lesion versus small hemorrhagic cyst. There appears to be blood flow in the right ovary on Doppler evaluation. No significant free pelvic fluid. US/Pelvic w/ Transvaginal IMPRESSION: In the endometrial canal, there is a 2.2 cm fairly well-marginated ovoid structure, isoechoic to peripheral endometrium, with some internal blood flow on Doppler evaluation. This could represent an endometrial polyp versus other nonspecific endometrial lesion. Biopsy or hysteroscopy is suggested. No discrete uterine or myometrial mass demonstrated. A few small left ovarian follicles are present, the largest at 1.7 cm. There is a 2.2 cm mildly echogenic mixed echogenicity structure in the central right ovary, possible small hemorrhagic cyst or solid lesion. No evidence of ovarian torsion. This could be re-evaluated with a follow-up pelvic ultrasound in 1-2 menstrual cycles. Reading Location: [facility] CC: Dr. Jeovany Argueta DO; Dr. Shilpi Boyle MD Social Group Worker: Signed Normal [facility] Platelet countOrdered By: Jerrod Boyle on 06-18-2024 Platelets (Bld) [#/Vol] 266 10*3/uL 150-450 [facility] RBC Auto (Bld) [#/Vol]Ordere d By: Shilpi Boyle on 06-18-2024 RBC (Bld) [#/Vol] 3.99 10*6/uL Low 4.2-5.4 [facility] TSH DL <= 0.005 mIU/L QnOrde red By: Shilpi Boyle on 06-18-2024 Thyroid Stimulating Hormone (TSH) 1.350 uIU/mL 0.300-4.200 [facility] Thyroid Stim Hormone (TSH)on 06-18-2024 TSH 1.350 uIU/mL Normal 0.300-4.200 [facility] Comment on above: Performed By: #### L 100.0100, L501.9520 #### [facility] [address] [place], [address] White blood cell (WBC) count Ordered By: Shilpi Boyle on 06-18-2024 WBC (Bld) [#/Vol] 4.9 10*3/uL 4.4-11.0 [facility] CNPNon 06-04-2024 CNPN Telephone (FAMPWS) HERON MAKI ([id number]) 1985 F Date Time Provider Department 06/04/24 [facility] During your visit today, we recorded the following information about you: Tawanna Be, RN 06/04/2024 5:05 PM Signed Pt called in as she accidentally scheduled herself for an appt tomorrow with Vale Bullard but states it is supposed to be her daughter Emma. Fixed that appt but noted that pt herself has not had a yearly physical in several years and also her last labs were done in 2022. Yearly physical booked with Dr. Argueta for 11/14/24. Pt states she just saw Dr. Argueta last week and Dr. Argueta was going to place orders for pt to get her thyroid checked. No orders placed and nothing noted in OV note. Will pend orders and forward to Dr. Argueta and her team. Please add or change dx codes as appropriate. Please call pt when orders are placed. Jeovany Argueta DO 06/04/2024 5:11 PM Signed Please let her know a full fasting lab panel is now ordered when she is able to have drawn DO Bharti Santos Amanda, RAKESH 06/04/2024 7:34 PM Signed Called and left a voicemail for the Patient to call back and ask for a nurse to receive the providers message. RAKESH Khalil Barbara, RN 06/05/2024 8:16 AM Signed Called and left a voicemail for the patient to call back and ask for a nurse to receive the providers message. Also sent pt a MyChart notification with instructions on fasting labs. Taylor Redd RN 06/05/2024 4:24 PM Signed Patient called and notified of below. Patient voices understanding. Taylor Redd RN Allergies As of Date: 06/04/2024 Noted Allergy Reaction ANIMAL DANDER 01/10/2007 PREDNISONE 01/30/2020 4 - Hives 2 - Rash 7 - Swelling Date Reviewed: 05/29/2024 Reviewed by: Kinjal Ogden LPN - Fully Assessed Reason for Visit: Patient Question [6807] Cmt: re: labs Appointment [186] Orders [681] Primary Visit Diagnosis:Screening for diabetes mellitus [Z13.1] Other Visit Diagnoses:Annual physical exam [Z00.00] Pure hypercholesterolemia [E78.00] Elevated TSH [R79.89] Order(s):HEMOGLOBIN A1C [FJQTD9Y] Order #: [id number] FUTURE COMPREHENSIVE METABOLIC PANEL [SQCMP] Order #: [id number] FUTURE COMPLETE BLOOD COUNT AND DIFFERENTIAL [SQCBCDIF] Order #: [id number] FUTURE LIPID PANEL, FASTING [SQLIPB] Order #: [id number] FUTURE VITAMIN D 25 HYDROXY [SQVITD] Order #: [id number] FUTURE VITAMIN B12 [SQB12] Order #: [id number] FUTURE THYROID STIMULATING HORMONE [SQTSH] Order #: [id number] FUTURE T4 FREE/FREE THYROXINE [SQFT4] Order #: [id number] FUTURE THYROID PEROXIDASE ANTIBODY [SQMICRO] Order #: [id number] FUTURE T3, FREE [SQFREET3] Order #: [id number] FUTURE Prescriptions as of 06/05/2024 - albuterol (PROVENTIL) 5 mg/mL nebu Inhale 0.5 mL as instructed every 4 hours as needed for wheezing/shortness of breath. - amoxicillin-clavulanate potassium (AUGMENTIN) 875-125 mg per tablet Take 1 tablet by mouth two times a day for 14 days. - albuterol HFA (VENTOLIN HFA) 90 mcg/actuation inhaler Inhale 2 Puffs as instructed every 4 hours as needed for wheezing/shortness of breath. - OPZELURA 1.5 % cream apply thin layer to affected area twice a day - fluticasone-salmeterol (ADVAIR DISKUS) 250-50 mcg/dose inhaler Inhale 1 Puff as instructed twice daily. Rinse and gargle mouth after use with water. - topiramate (TOPAMAX) 50 mg tablet Take 50 mg by mouth once daily. - lamoTRIgine (LAMICTAL) 150 mg tablet Take 1 tablet by mouth twice daily. - hydrOXYzine HCl (ATARAX) 25 mg tablet Take 1 tablet by mouth twice daily. 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] ASTHMA UNSPECIFIED [J45.909] ACUTE NEPHRITIS NOS [N00.9] PANIC DISORDER WITHOUT AGORAPHOBIA [F41.0] 02/23/2007 GENERALIZED ANXIETY DIS [F41.1] 02/23/2007 STRIAE ATROPHICAE [L90.6] 07/08/2008 Depressive disorder [F32.A] 05/12/2021 Well adult exam [Z00.00] 05/12/2021 S/P laparoscopic appendectomy [Z90.49] 07/28/2022 Concentration deficit [R41.840] 07/28/2022 Pure hypercholesterolemia [E78.00] 07/28/2022 Elevated TSH [R79.89] 07/28/2022 Elevated LFTs [R79.89] 07/28/2022 S/P partial colectomy [Z90.49] 07/28/2022 Mucocele, 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 This was denied. Prescriber Name: Jeovany Argueta Prescriber Phone: [phone] Prescriber Fax: [phone] Dear HERON MAKI: [facility]? received a request for coverage of Albuterol Sulfate Nebulizer Soln for you. Your plan has criteria in place for coverage of this medicine. We needed additional clinical information from your prescriber in order to make a decision to either approve or deny the request. We did not receive the additional clinical information within the time allowed to make the decision; therefore, the request was denied. This is the initial adverse determination for this request. The request was denied because: Your plan only covers this drug when you meet one of these options: A) You have tried other drugs your plan covers (preferred drugs), and they did not work well for you, or B) Your doctor gives us a medical reason you cannot take those other drugs. For your plan, you may need to try up to three preferred drugs. We have denied your request because you do not meet any of these conditions. We reviewed the information we had. Your request has been denied. Your doctor can send us any new or missing information for us to review. The preferred drug for your plan is: albuterol inhalation solution (except NDCs [id number]). (Requirement: 3 in a class with 3 or more alternatives, 2 in a class with 2 alternatives, or 1 in a class with only 1 alternative). Your doctor may need to get approval from your plan for preferred drugs. For this drug, you may have to meet other criteria. You can request the drug policy for more details. You can also request other plan documents for your review Mady Dahl LPN 05/30/2024 10:16 AM Signed Called the pharmacy and there was a paid claim from insurance. This was picked up. Allergies As of Date: 05/30/2024 Noted Allergy Reaction ANIMAL DANDER 01/10/2007 PREDNISONE 01/30/2020 4 - Hives 2 - Rash 7 - Swelling Date Reviewed: 05/29/2024 Reviewed by: Kinjal Ogden LPN - Fully Assessed Reason for Visit: Insurance Authorization [[id number]] Prescriptions as of 05/30/2024 - albuterol (PROVENTIL) 5 mg/mL nebu Inhale 0.5 mL as instructed every 4 hours as needed for wheezing/shortness of breath. - amoxicillin-clavulanate potassium (AUGMENTIN) 875-125 mg per tablet Take 1 tablet by mouth two times a day for 14 days. - azithromycin (ZITHROMAX) 250 mg tablet Take 1 tablet by mouth as directed. - albuterol HFA (VENTOLIN HFA) 90 mcg/actuation inhaler Inhale 2 Puffs as instructed every 4 hours as needed for wheezing/shortness of breath. - fluticasone (FLONASE) 50 mcg/actuation nasal spray Use 2 Sprays in each nostril once daily. Rinse mouth after use. - OPZELURA 1.5 % cream apply thin layer to affected area twice a day - fluticasone-salmeterol (ADVAIR DISKUS) 250-50 mcg/dose inhaler Inhale 1 Puff as instructed twice daily. Rinse and gargle mouth after use with water. - topiramate (TOPAMAX) 50 mg tablet Take 50 mg by mouth once daily. - lamoTRIgine (LAMICTAL) 150 mg tablet Take 1 tablet by mouth twice daily. - hydrOXYzine HCl (ATARAX) 25 mg tablet Take 1 tablet by mouth twice daily. - multivit get-qgnm-UA-herb 186 3.3 mg iron-25 mcg tab - vitamin B complex (B COMPLEX 1 ORAL) Problem List As Of Date 05/30/2024 Noted Resolved RECURR DEPR PSYCHOS-UNSP [F33.9] ASTHMA UNSPECIFIED [J45.909] ACUTE NEPHRITIS NOS [N00.9] PANIC DISORDER WITHOUT AGORAPHOBIA [F41.0] 02/23/2007 GENERALIZED ANXIETY DIS [F41.1] 02/23/2007 STRIAE ATROPHICAE [L90.6] 07/08/2008 Depressive disorder [F32.A] 05/12/2021 Well adult exam [Z00.00] 05/12/2021 S/P laparoscopic appendectomy [Z90.49] 07/28/2022 Concentration deficit [R41.840] 07/28/2022 Pure hypercholesterolemia [E78.00] 07/28/2022 Elevated TSH [R79.89] 07/28/2022 Elevated LFTs [R79.89] 07/28/2022 S/P partial colectomy [Z90.49] 07/28/2022 Mucocele, 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] 07/28/2022 Encounter Status:Closed by MADY DAHL on 05/30/24 Normal [facility] CNOVon 05-29-2024 CNOV Office Visit (FAMPWS ) HERON [id number]) 1985 F Date Time Provider Department 05/29/24 12:00 PM JEOVANY ARGUETAPWS During your visit today, we recorded the following information about you: Temperature Pulse Respiration Blood pressure 97 degrees 80/minute 16/minute 120/80 Weight Last Period 60.3 kg 05/25/24 Jeovany Argueta, DO 05/30/2024 9:04 PM Signed CC: Heron MAKI is a 39 year old female who presents to the office for URI HPI: URI symptoms for the last 4-6 weeks, is struggling to "get over this illness, when I think it is going away it comes back." + sinus pressure and pain as well as PND. No fevers or chills. She is concerned due to her history of asthma. She has her albuterol MDI and is using it as needed. No dyspnea or hemoptysis, no sore throat. + ear pressure, + sick contacts. 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 amoxicillin-clavulanate potassium (AUGMENTIN) 875-125 mg per tablet Take 1 tablet by mouth two times a day for 14 days. azithromycin (ZITHROMAX) 250 mg tablet Take 1 tablet by mouth as directed. albuterol HFA (VENTOLIN HFA) 90 mcg/actuation inhaler Inhale 2 Puffs as instructed every 4 hours as needed for wheezing/shortness of breath. fluticasone (FLONASE) 50 mcg/actuation nasal spray Use 2 Sprays in each nostril once daily. Rinse mouth after use. OPZELURA 1.5 % cream apply thin layer to affected area twice a day fluticasone-salmeterol (ADVAIR DISKUS) 250-50 mcg/dose inhaler Inhale 1 Puff as instructed twice daily. Rinse and gargle mouth after use with water. topiramate (TOPAMAX) 50 mg tablet Take 50 mg by mouth once daily. lamoTRIgine (LAMICTAL) 150 mg tablet Take 1 tablet by mouth twice daily. (Patient taking differently: Take 200 mg by mouth two times a day.) hydrOXYzine HCl (ATARAX) 25 mg tablet Take 1 tablet by mouth twice daily. (Patient taking differently: Take 25 mg by mouth as needed for anxiety.) multivit mbm-ubct-BI-herb 186 3.3 mg iron-25 mcg tab vitamin B complex (B COMPLEX 1 ORAL) No current facility-administered medications for this visit. ALLERGIES Allergen Reactions Animal Dander Prednisone Hives, Rash, Swelling Social History Tobacco Use Smoking status: Former Types: Cigarettes Smokeless tobacco: Never Tobacco comments: 1.5/wk Substance Use Topics Alcohol use: Not Currently Alcohol/week: 4.0 standard drinks of alcohol Types: 4 Cans of Beer (12oz) per week Drug use: Yes Types: Marijuana Comment: medical ROS: See HPI PE: BP 120/80 Pulse 80 Temp (Src) 97 (Right Tympanic) Resp 16 Wt 133 lb (60.3kg) LMP 05/25/2024 Gen: AANDOX3, NAD, non-toxic appearing HEENT: PERRLA, EOMs intact b/l, nares with congestion and posterior drainage, + maxillary sinus TTP b/l, pharynx without erythema, exudate, lesions, + thick yellow drainage. Uvula midline. MMM, EAC wnl, TM with serous effusion b/l without rupture Neck: No LAD, no thyromegaly, no meningismus. CV: RRR, no murmur, normal s1s2 Lungs: CTA b/l, no distress, + scattered end expir minimal wheezing Skin: No rashes, lesions, or wounds on exposed skin. No edema, normal pulses ASSESSMENT/PLAN: 1. Acute non-recurrent maxillary sinusitis - ICD9: 461.0, ICD10: J01.00 (primary diagnosis) - Will begin treatment with as per antibiotic as written, see orders - Supportive care with plenty of fluids, rest, and analgesia prn. - AMOXICILLIN 875 MG-POTASSIUM CLAVULANATE 125 MG TABLET 2. Moderate persistent asthma, uncomplicated - ICD9: 493.90, ICD10: J45.40 - Mild intermittent asthma worse and start on rx by neb as below prn - Avoidance of triggers recommended - NEBULIZER - AEROSOL MASK USED W NEBULIZE - ALBUTEROL SULFATE CONCENTRATE 5 MG/ML(0.5 %) SOLUTION FOR NEBULIZATION 3. Acute cough - ICD9: 786.2, ICD10: R05.1 See above - NEBULIZER - AEROSOL MASK USED W NEBULIZE - ALBUTEROL SULFATE CONCENTRATE 5 MG/ML(0.5 %) SOLUTION FOR NEBULIZATION Jeovany Argueta DO Return if no improvement. Follow up with Jeovany Argueta DO. To ER if develops chest pain, shortness of breath. Discussed risks, benefits, alternatives, and potential side effects of medications. Patient/Guardian expressed understanding and agreed with the plan. See patient instructions. Jeovany Argueta DO [address] (more content not included)... Normal [facility] 02-28-2024 CNPN Telephone (FAMPWS) HERON MAKI ([id number]) 1985 F Date Time Provider Department 02/28/24 [facility] During your visit today, we recorded the following information about you: Autumn Millard MA 02/28/2024 8:26 AM Signed Please see pt message -- Hello! I?m on vacation with my family and am coughing up green phlegm. Is there anyway we can send an antibiotic or zpac to a pharmacy down here please! Kathryn Solo RN 02/28/2024 8:31 AM Signed Patient calling in to request Virtual Appt with provider to address her upper respiratory concerns. Pt currently in [place], [place]. Pt advised to seek care at local [facility] or Urgent Care in her area for evaluation, unless PCP advises differently after reviewing this message. Pt verbalized understanding. RAKESH Cruz Jordan L, DO 02/28/2024 1:43 PM Signed Please let her know I am okay with sending in an rx as below What pharmacy? DO Blu Santos Rachel L, MA 02/28/2024 1:51 PM Signed LM for pt to contact office MAGALIS Posada Stephanie, RN 02/28/2024 4:26 PM Signed Patient calls back and states [facility] [id number] [place] [address] [facility] [phone]. Jeovany Argueta DO 02/28/2024 4:28 PM Signed Please let her know rx sent in as below Jeovany Argueta DO The following approved medication requests have been transmitted electronically. Requested Prescriptions Signed Prescriptions Disp Refills azithromycin (ZITHROMAX) 250 mg tablet 6 tablet 0 Sig: Take 1 tablet by mouth as directed. Authorizing Provider: JEOVANY ARGUETA DO Holiday, [place], MA 02/28/2024 4:29 PM Signed Pt informed via SendRR message Autumn Millard MA Allergies As of Date: 02/28/2024 Noted Allergy Reaction ANIMAL DANDER 01/10/2007 PREDNISONE 01/30/2020 4 - Hives 2 - Rash 7 - Swelling Date Reviewed: 11/28/2023 Reviewed by: Andre Ramon APRN.HOSE BUILDER - Fully Assessed Reason for Visit: URI [115] Primary Visit Diagnosis:URI, acute [J06.9] Order(s):azithromycin (ZITHROMAX) 250 mg tabletTake 1 tablet by mouth as directed.Disp: 6 tabletRfl: 0 Prescriptions as of 02/28/2024 - azithromycin (ZITHROMAX) 250 mg tablet Take 1 tablet by mouth as directed. - albuterol HFA (VENTOLIN HFA) 90 mcg/actuation inhaler Inhale 2 Puffs as instructed every 4 hours as needed for wheezing/shortness of breath. - fluticasone (FLONASE) 50 mcg/actuation nasal spray Use 2 Sprays in each nostril once daily. Rinse mouth after use. - OPZELURA 1.5 % cream apply thin layer to affected area twice a day - fluticasone-salmeterol (ADVAIR DISKUS) 250-50 mcg/dose inhaler Inhale 1 Puff as instructed twice daily. Rinse and gargle mouth after use with water. - topiramate (TOPAMAX) 50 mg tablet Take 50 mg by mouth once daily. - lamoTRIgine (LAMICTAL) 150 mg tablet Take 1 tablet by mouth twice daily. - hydrOXYzine HCl (ATARAX) 25 mg tablet Take 1 tablet by mouth twice daily. - multivit sma-aqrw-ER-herb 186 3.3 mg iron-25 mcg tab - vitamin B complex (B COMPLEX 1 ORAL) Problem List As Of Date 02/28/2024 Noted Resolved RECURR DEPR PSYCHOS-UNSP [F33.9] ASTHMA UNSPECIFIED [J45.909] ACUTE NEPHRITIS NOS [N00.9] PANIC DISORDER WITHOUT AGORAPHOBIA [F41.0] 02/23/2007 GENERALIZED ANXIETY DIS [F41.1] 02/23/2007 STRIAE ATROPHICAE [L90.6] 07/08/2008 Depressive disorder [F32.A] 05/12/2021 Well adult exam [Z00.00] 05/12/2021 S/P laparoscopic appendectomy [Z90.49] 07/28/2022 Concentration deficit [R41.840] 07/28/2022 Pure hypercholesterolemia [E78.00] 07/28/2022 Elevated TSH [R79.89] 07/28/2022 Elevated LFTs [R79.89] 07/28/2022 S/P partial colectomy [Z90.49] 07/28/2022 Mucocele, 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 Encounter Status:Closed by AUTUMN MILLARD on 02/28/24 Normal [facility] Angel 11-28-2023 CNOV Office Visit (UCWSTR ) FEDORCHAK,HERON L ([id number]) 1985 F Date Time Provider Department 11/28/23 5:00 PM ANDRE RAMON [facility] During your visit today, we recorded the following information about you: Temperature Pulse Respiration Blood pressure 98.7 degrees 74/minute 16/minute 100/82 Weight 58.7 kg Andre Ramon APRN.HOSE BUILDER 11/28/2023 5:11 PM Signed Subjective HPI Nontoxic-appearing female presents urgent care chief complaint sinus pressure drainage and cough. Duration of symptoms 10 days. Associated symptoms listed above. Initially started with fever body aches chills and flulike symptoms. This did improve. Most prominent symptom today is sinus pressure. OTC medications little to no success. History of sinus factions this is similar. Denies any fever body aches chills productive cough chest pain shortness of breath pleuritic pain hemoptysis nausea vomiting abdominal pain change in bowel or bladder habits. Past medical history prescription medication use and allergies reviewed. Denies chance of . Is not breast-feeding. 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 fluticasone (FLONASE) 50 mcg/actuation nasal spray Use 2 Sprays in each nostril once daily. Rinse mouth after use. OPZELURA 1.5 % cream apply thin layer to affected area twice a day topiramate (TOPAMAX) 50 mg tablet Take 50 mg by mouth once daily. hydrOXYzine HCl (ATARAX) 25 mg tablet Take 1 tablet by mouth twice daily. (Patient taking differently: Take 25 mg by mouth as needed for anxiety.) multivit plp-impm-SN-herb 186 3.3 mg iron-25 mcg tab vitamin B complex (B COMPLEX 1 ORAL) fluticasone-salmeterol (ADVAIR DISKUS) 250-50 mcg/dose inhaler Inhale 1 Puff as instructed twice daily. Rinse and gargle mouth after use with water. lamoTRIgine (LAMICTAL) 150 mg tablet Take 1 tablet by mouth twice daily. (Patient taking differently: Take 200 mg by mouth two times a day.) FAMILY HISTORY Problem Relation Age of Onset Headache Mother other (depression) Mother of EtOH + Vicodin Social History Tobacco Use Smoking status: Former Types: Cigarettes Smokeless tobacco: Never Tobacco comments: 1.5/wk Substance Use Topics Alcohol use: Not Currently Alcohol/week: 4.0 standard drinks of alcohol Types: 4 Cans of Beer (12oz) per week Drug use: Yes Types: Marijuana Comment: medical BP 100/82 Pulse 74 Temp 37.1 ?C (98.7 ?F) (Left Tympanic) Resp 16 Wt 58.7 kg (129 lb 6.6 oz) LMP 07/18/2023 (Approximate) SpO2 99% BMI 21.30 kg/m? Review of Systems Constitutional: Negative for chills, fever and malaise/fatigue. HENT: Positive for congestion and sinus pain. Negative for ear discharge, ear pain and sore throat. Eyes: Negative for blurred vision, pain, discharge and redness. Respiratory: Positive for cough. Negative for hemoptysis, sputum production, shortness of breath, wheezing and stridor. Cardiovascular: Negative for chest pain. Gastrointestinal: Negative for abdominal pain, diarrhea, nausea and vomiting. Musculoskeletal: Negative for myalgias. Skin: Negative for itching and rash. Neurological: Negative for dizziness and headaches. Objective Physical Exam Constitutional: General: She is not in acute distress. Appearance: She is not diaphoretic. HENT: Head: Normocephalic. Jaw: No trismus, tenderness, swelling or pain on movement. Right Ear: Tympanic membrane, ear canal and external ear normal. Left Ear: Tympanic membrane, ear canal and external ear normal. Nose: Congestion present. Right Sinus: Maxillary sinus tenderness present. Left Sinus: Maxillary sinus tenderness present. Mouth/Throat: Mouth: Mucous membranes are moist. Pharynx: Oropharynx is clear. Uvula midline. No pharyngeal swelling, oropharyngeal exudate, posterior oropharyngeal erythema or uvula swelling. Eyes: Conjunctiva/sclera: Conjunctivae normal. Pupils: Pupils are equal, round, and reactive to light. Cardiovascular: Rate and Rhythm: Normal rate and regular rhythm. Heart sounds: Normal heart sounds. Pulmonary: Effort: Pulmonary effort is normal. No tachypnea, accessory muscle usage or respiratory distress. Breath sounds: Normal breath sounds. No stridor. No wheezing, rhonchi or rales. A (more content not included)... Normal [facility] Absolute lymphocyte countOrd ered By: Dr. Mendoza on 06-27-2022 Lymphocytes Auto (Unsp spec) [#/Vol] 2.47 10*3/uL 0.83-4.51 [facility] Basophil percentageOrdered B y: Dr. Mendoza on 06-27-2022 Basophil percentage 2.1 mg/dL 2.5-4.9 [facility] Basophils/100 WBC (Bld) 0.3 % 0-1 [facility] Chloride [Moles/Vol] 112 mmol/L 98-[address] [facility] Eosinophils/100 WBC (Bld) 0.6 % 0-5 [facility] Glucose [Mass/Vol] 96 mg/dL 74-106 [facility] Neutrophils (Bld) [#/Vol] 6.5 10*3/uL 2.0-7.7 [facility] Neutrophils/100 WBC (Bld) 64.5 % 47-70 [facility] Potassium [Moles/Vol] 3.7 mmol/L 3.5-5.1 [facility] Sodium [Moles/Vol] 139 mmol/L 136-145 [facility] WBC (Bld) [#/Vol] 10.2 10*3/uL 4.4-11.0 [facility] Blood erythrocytes count (nu mber/volume)Ordered By: Dr. Mendoza on 06-27-2022 RBC (Bld) [#/Vol] 3.69 10*6/uL 4.2-5.4 [facility] Blood hemoglobin measurement (mass/volume)Ordered By: Dr. Mendoza on 06-27-2022 Hemoglobin (Bld) [Mass/Vol] 11.0 g/dL 12.0-15.0 [facility] Blood lymphocytes/100 leukoc ytesOrdered By: Dr. Mendoza on 06-27-2022 Lymphocytes/100 WBC (Bld) 24.3 % 19-41 [facility] Blood monocytes/100 leukocyt esOrdered By: Dr. Mendoza on 06-27-2022 Monocytes/100 WBC (Bld) 10.0 % 0-10 [facility] Blood platelet mean volumeOr dered By: Dr. Mendoza on 06-27-2022 Platelet mean volume (Bld) [Entitic vol] 10.6 fL 6.2-12.0 [facility] Determination of erythrocyte mean corpuscular volume (MCV)Ordered By: Dr. Mendoza on 06-27-2022 MCV (RBC) [Entitic vol] 90.8 fL 81-99 [facility] Hematocrit Auto (Bld) [Volum e fraction]Ordered By: Dr. Mendoza on 06-27-2022 Hematocrit (Bld) [Volume fraction] 33.5 % 37-47 [facility] Laboratory - Chemistry and C hemistry - challengeOrdered By: Dr. Mendoza on 06-27-2022 CO2 [Moles/Vol] 24.0 mmol/L 21.0-32.0 [facility] Magnesium [Mass/Vol] 1.7 mg/dL 1.6-2.[address] [facility] Urea nitrogen/Creatinine [Mass ratio] 9.5 mg/mg 10-20 [facility] - Hematology and Cell countsOrdered By: Dr. Mendoza on 06-27-2022 Erythrocyte distribution width (RBC) [Entitic vol] 44.2 fL 35.1-43.9 [facility] Erythrocyte distribution width (RBC) [Ratio] 13.3 % 11.6-14.6 [facility] Immature granulocytes/100 WBC (Bld) 0.300 % 0.0-0.9 [facility] Comment on above: IG% - Immature Granu locytes (promyelocytes, myelocytes and metamyelocytes) > 1% indicates that a LEFT SHIFT is Present. MCH (RBC) [Entitic mass] 29.8 pg 27.0-32.0 [facility] Nucleated RBC/100 WBC (Bld) [Ratio] 0 % 0-5 [facility] MCHC Auto (RBC) [Mass/Vol]Or dered By: Dr. Mendoza on 06-27-2022 MCHC (RBC) [Mass/Vol] 32.8 g/dL 32-36 [facility] No Panel InformationOrdered By: Dr. Mendoza on 06-27-2022 Estimated Creatinine Clearance Calc 127.93 ml/min [facility] Estimated GFR (MDRD) Amer 169 mL/min >60 [facility] Comment on above: GFR Calc Estimated GFR (MDRD) Non-Af Amer 139 mL/min >60 [facility] Comment on above: Non- GFR Calc Platelets bldOrdered By: Dr. Mendoza on 06-27-2022 Platelets (Bld) [#/Vol] 305 10*3/uL 150-450 [facility] Serum or plasma calcium bunny urement (mass/volume)Ordered By: Dr. Mendoza on 06-27-2022 Calcium [Mass/Vol] 7.9 mg/dL 8.5-10.1 [facility] Serum or plasma creatinine m easurement (mass/volume)Ordered By: Dr. Mendoza on 06-27-2022 Creatinine [Mass/Vol] 0.53 mg/dL 0.55-1.02 [facility] Comment on above: The validity of the calculated GFR & GFRAA in patients over 70 years has not been determined. Clinical correlation is essential. Serum or plasma urea nitroge n measurement (mass/volume)Ordered By: Dr. Mendoza on 06-27-2022 Urea nitrogen [Mass/Vol] 5 mg/dL 7-18 [facility] Thin prep Papanicolaou smear with manual screeningOrdered By: Dr. Mendoza on 06-27-2022 Thin prep Papanicolaou smear with manual screening 3 5-15 [facility] Absolute lymphocyte countOrd ered By: Neil Dunne on 06-25-2022 Lymphocytes Auto (Unsp spec) [#/Vol] 2.03 10*3/uL 0.83-4.51 [facility] Basophil percentageOrdered B y: Neil Dunne on 06-25-2022 Lactate [Moles/Vol] 1.6 mmol/L 0.4-2.0 [facility] Basophil percentage 0 SEEN /hpf 0-[address] [facility] Basophils/100 WBC (Bld) 0.3 % 0-1 [facility] Bilirubin [Mass/Vol] 0.50 mg/dL 0.20-1.[address] [facility] Comment on above: For patients on eltr ombopag therapy, use of Dimension [place] TBIL is not recommended. Chloride [Moles/Vol] 105 mmol/L 98-[address] [facility] Eosinophils/100 WBC (Bld) 0.5 % 0-5 [facility] Glucose [Mass/Vol] 121 mg/dL 74-106 [facility] Comment on above: Fasting Glucose resu lt from 100 to 125 mg/dL suggests IMPAIRED HOMEOSTASIS per A.D.A. criteria. Neutrophils (Bld) [#/Vol] 12.6 10*3/uL 2.0-7.7 [facility] Neutrophils/100 WBC (Bld) 81.7 % 47-70 [facility] Potassium [Moles/Vol] 3.3 mmol/L 3.5-5.1 [facility] Protein [Mass/Vol] 7.4 g/dL 6.4-8.2 [facility] Sodium [Moles/Vol] 137 mmol/L 136-145 [facility] WBC (Bld) [#/Vol] 15.4 10*3/uL 4.4-11.0 [facility] Bilirubin Test strip Ql (U)O rdered By: Neil Dunne on 06-25-2022 Bilirubin Ql (U) Negative Negative [facility] Blood erythrocytes count (nu mber/volume)Ordered By: Neil Dunne on 06-25-2022 RBC (Bld) [#/Vol] 4.60 10*6/uL 4.2-5.4 [facility] Blood hemoglobin measurement (mass/volume)Ordered By: Neil Dunne on 06-25-2022 Hemoglobin (Bld) [Mass/Vol] 13.6 g/dL 12.0-15.0 [facility] Blood lymphocytes/100 leukoc ytesOrdered By: Neil Dunne on 06-25-2022 Lymphocytes/100 WBC (Bld) 13.2 % 19-41 [facility] Blood monocytes/100 leukocyt esOrdered By: Neil Dunne on 06-25-2022 Monocytes/100 WBC (Bld) 4.0 % 0-10 [facility] Blood platelet mean volumeOr dered By: Neil Dunne on 06-25-2022 Platelet mean volume (Bld) [Entitic vol] 10.1 fL 6.2-12.0 [facility] Determination of erythrocyte mean corpuscular volume (MCV)Ordered By: Neil Dunne on 06-25-2022 MCV (RBC) [Entitic vol] 88.3 fL 81-99 [facility] Direct bilirubinOrdered By: Neil Dunne on 06-25-2022 Bilirubin.direct [Mass/Vol] 0.16 mg/dL 0.00-0.30 [facility] Hematocrit Auto (Bld) [Volum e fraction]Ordered By: Neil Dunne on 06-25-2022 Hematocrit (Bld) [Volume fraction] 40.6 % 37-47 [facility] Ketones Test strip Ql (U)Ord ered By: Neil Dunne on 06-25-2022 Ketones Ql (U) 5 mg/dl Negative [facility] Laboratory - Chemistry and C hemistry - challengeOrdered By: Neil Dunne on 06-25-2022 ALP [Catalytic activity/Vol] 42 U/L 45-117 [facility] ALT [Catalytic activity/Vol] 25 U/L 13-56 [facility] CO2 [Moles/Vol] 25.0 mmol/L 21.0-32.0 [facility] Globulin (S) [Mass/Vol] 2.9 g/dL 2.2-4.2 [facility] HCG ( test) Ql (U) Negative [facility] Comment on above: Very dilute urine sp ecimens, as indicated by a low specificgravity, may not contain compliance representative levels of hCG. If is still suspected, a first morning urinespecimen should be collected 48 hours later and tested. Lipase [Catalytic activity/Vol] 38 U/L 13-75 [facility] Comment on above: Please note:LIPASE r evised reference range effective 22. New Lipase methodology. Expected to produce lower values than the previous assay method. NEW Reference Range: 13 - 75 U/L Urea nitrogen/Creatinine [Mass ratio] 9.0 mg/mg 10-20 [facility] - Hematology and Cell countsOrdered By: Neil Dunne on 06-25-2022 Erythrocyte distribution width (RBC) [Entitic vol] 41.8 fL 35.1-43.9 [facility] Erythrocyte distribution width (RBC) [Ratio] 13.0 % 11.6-14.6 [facility] Immature granulocytes/100 WBC (Bld) 0.300 % 0.0-0.9 [facility] Comment on above: IG% - Immature Granu locytes (promyelocytes, myelocytes and metamyelocytes) > 1% indicates that a LEFT SHIFT is Present. MCH (RBC) [Entitic mass] 29.6 pg 27.0-32.0 [facility] Nucleated RBC/100 WBC (Bld) [Ratio] 0 % 0-5 [facility] MCHC Auto (RBC) [Mass/Vol]Or dered By: Neil Dunne on 06-25-2022 MCHC (RBC) [Mass/Vol] 33.5 g/dL 32-36 [facility] Mucus LM Ql (Urine sed)Order ed By: Neil Dunne on 06-25-2022 Mucus Ql (Urine sed) 0 SEEN /hpf [facility] Nitrite Test strip Ql (U)Ord ered By: Neil Dunne on 06-25-2022 Nitrite Ql (U) Negative Negative [facility] No Panel InformationOrdered By: Neil Dunne on 06-25-2022 Estimated Creatinine Clearance Calc 76.19 ml/min [facility] Estimated GFR (MDRD) Amer 93 mL/min >60 [facility] Comment on above: GFR Calc Estimated GFR (MDRD) Non-Af Amer 76 mL/min >60 [facility] Comment on above: Non- GFR Calc Platelets bldOrdered By: John Dunne on 06-25-2022 Platelets (Bld) [#/Vol] 386 10*3/uL 150-450 [facility] Protein Test strip Ql (U)Ord ered By: Neil Dunne on 06-25-2022 Protein Ql (U) Negative Negative [facility] Serum or plasma albumin bunny urement (mass/volume)Ordered By: Neil Dunne on 06-25-2022 Albumin [Mass/Vol] 4.5 g/dL 3.2-5.0 [facility] Serum or plasma calcium bunny urement (mass/volume)Ordered By: Neil Dunne on 06-25-2022 Calcium [Mass/Vol] 9.7 mg/dL 8.5-10.1 [facility] Serum or plasma creatinine m easurement (mass/volume)Ordered By: Neil Dunne on 06-25-2022 Creatinine [Mass/Vol] 0.89 mg/dL 0.55-1.02 [facility] Comment on above: The validity of the calculated GFR & GFRAA in patients over 70 years has not been determined. Clinical correlation is essential. Serum or plasma urea nitroge n measurement (mass/volume)Ordered By: Neil Dunne on 06-25-2022 Urea nitrogen [Mass/Vol] 8 mg/dL 7-18 [facility] Squamous epithelial cells de tection in urine sediment by light microscopyOrdered By: Neil Dunne on 06-25-2022 Epithelial cells.squamous LM Ql (Urine sed) 0-5 SEEN /hpf 5-10 [facility] Thin prep Papanicolaou smear with manual screeningOrdered By: Neil Dunne on 06-25-2022 Thin prep Papanicolaou smear with manual screening 18 U/L 15-37 [facility] Thin prep Papanicolaou smear with manual screening 7 5-15 [facility] Urine blood detectionOrdered By: Neil Dunne on 06-25-2022 RBC Ql (U) Negative Negative [facility] RBC Ql (U) 0 SEEN /hpf 0-5 [facility] Urine clarityOrdered By: John Dunne on 06-25-2022 Clarity (U) Clear Clear [facility] Urine color determinationOrd ered By: Neil Dunne on 06-25-2022 Color (U) Yellow Yellow [facility] Urine glucose detectionOrder ed By: Neil Dunne on 06-25-2022 Glucose Ql (U) Normal mg/dl Normal [facility] Urine leukocyte esterase det ection by dipstickOrdered By: Neil Dunne on 06-25-2022 Leukocyte esterase Test strip Ql (U) Negative Negative [facility] Urine pHOrdered By: Neil miller on 06-25-2022 pH (U) 9.0 [pH] 5.0 - 8.0 [facility] Urine sediment bacteria coun t by microscopy (number/high power field)Ordered By: Neil Dunne on 06-25-2022 Bacteria LM.HPF (Urine sed) [#/Area] 1 /[HPF] None Seen [facility] Urine specific gravity measu rementOrdered By: Neil Dunne on 06-25-2022 Specific gravity (U) [Rel density] 1.020 1.002-1.030 [facility] Urobilinogen Auto test strip Ql (U)Ordered By: Neil Dunne on 06-25-2022 Urobilinogen Ql (U) Normal mg/dl Normal [facility] STREP A MOLECULAR (POC)on Procedural Control Valid [facility] Strep A (POCT) Negative Negative [facility] Vital Signs Date Time Vital Sign Value Performing Clinician Faci lity 12-18-2024 15:22-0400 Body height 162.[address] Jeovany Argueta DO Work Phone: [facility] 12-18-2024 15:19-0400 Body mass index (BMI) [Ratio] 24.1 kg/m2 Dr. Jeovany Argueta DO Work Phone: [facility] 12-18-2024 15:19-0400 Body weight 63.[address] Jeovany Argueta DO Work Phone: [facility] 12-18-2024 15:19-0400 Diastolic blood pressure 74 mm[Hg] Dr. Jeovany Argueta DO Work Phone: [facility] 12-18-2024 15:19-0400 Systolic blood pressure 112 mm[Hg] Dr. Jeovany Argueta DO Work Phone: [facility] 05-29-2024 12:02-0400 Body mass index (BMI) [Ratio] 21.89 kg/m2 Jeovany Argueta DO Work Phone: [facility] 05-29-2024 12:02-0400 Body temperature 97 [degF] Jeovany Argueta DO Work Phone: [facility] 05-29-2024 12:02-0400 Body weight 60.33 kg Jeovany Argueta DO Work Phone: [facility] 05-29-2024 12:02-0400 Diastolic blood pressure 80 mm[Hg] Jeovany Argueta DO Work Phone: [facility] 05-29-2024 12:02-0400 Heart rate 80 /min Jeovany Argueta DO Work Phone: [facility] 05-29-2024 12:02-0400 Respiratory rate 16 /min Jeovany Argueta DO Work Phone: [facility] 05-29-2024 12:02-0400 Systolic blood pressure 120 mm[Hg] Jeovany Argueta DO Work Phone: [facility] 11-28-2023 17:01-0400 Body mass index (BMI) [Ratio] 21.3 kg/m2 Andre Ramon JOY OPERATOR [employer] Work Phone: [facility] 11-28-2023 17:01-0400 Body temperature 98.71 [degF] Andre Ramon JOY OPERATOR [employer] Work Phone: [facility] 11-28-2023 17:01-0400 Body weight 58.7 kg Andre Ramon JOY OPERATOR [employer] Work Phone: [facility] 11-28-2023 17:01-0400 Diastolic blood pressure 82 mm[Hg] Andre Ramon JOY OPERATOR [employer]PER[employer] Work Phone: [facility] 11-28-2023 17:01-0400 Heart rate 74 /min Andre Ramon JOY OPERATOR [employer] Work Phone: [facility] 11-28-2023 17:01-0400 Respiratory rate 16 /min Andre Ramon JOY OPERATOR [employer] Work Phone: [facility] 11-28-2023 17:01-0400 SaO2% (BldA) [Mass fraction] 99 % Andre Ramon JOY OPERATOR HEL[employer] Work Phone: [facility] 11-28-2023 17:01-0400 Systolic blood pressure 100 mm[Hg] Andre Ramon JOY OPERATOR [employer] Work Phone: [facility] 08-02-2023 16:25-0400 Body mass index (BMI) [Ratio] 21.05 kg/m2 Krislyn Aberegg PA Work Phone: [facility] 08-02-2023 16:25-0400 Body temperature 98.49 [degF] Krislyn Aberegg PA Work Phone: [facility] 08-02-2023 16:25-0400 Body weight 58 kg Krislyn Aberegg PA Work Phone: [facility] 08-02-2023 16:25-0400 Diastolic blood pressure 88 mm[Hg] Krislyn Aberegg PA Work Phone: [facility] 08-02-2023 16:25-0400 Heart rate 76 /min Krislyn Aberegg PA Work Phone: [facility] 08-02-2023 16:25-0400 Respiratory rate 20 /min Krislyn Aberegg PA Work Phone: [facility] 08-02-2023 16:25-0400 SaO2% (BldA) [Mass fraction] 100 % Krislyn Aberegg PA Work Phone: [facility] 08-02-2023 16:25-0400 Systolic blood pressure 145 mm[Hg] Krislyn Aberegg PA Work Phone: [facility] 06-07-2023 15:42-0400 Body temperature 97.11 [degF] Tayo Nguyen MD Work Phone: [facility] 06-07-2023 15:42-0400 Body weight 59.97 kg Tayo Nguyen MD Work Phone: [facility] 06-07-2023 15:42-0400 Diastolic blood pressure 78 mm[Hg] Tayo Nguyen MD Work Phone: [facility] 06-07-2023 15:42-0400 Heart rate 64 /min Tayo Nguyen MD Work Phone: [facility] 06-07-2023 15:42-0400 Respiratory rate 16 /min Tayo Nguyen MD Work Phone: [facility] 06-07-2023 15:42-0400 SaO2% (BldA) [Mass fraction] 99 % Tayo Nguyen MD Work Phone: [facility] 06-07-2023 15:42-0400 Systolic blood pressure 116 mm[Hg] Tayo Nguyen MD Work Phone: [facility] 06-27-2022 12:13-0400 Body temperature 98.4 [degF] Dr. Neil Dunne Work Phone: [facility] 06-27-2022 12:13-0400 Diastolic blood pressure 66 mm[Hg] Dr. Neil Dunne Work Phone: [facility] 06-27-2022 12:13-0400 Heart rate 59 /min Dr. Neil Dunne Work Phone: [facility] 06-27-2022 12:13-0400 Respiratory rate 18 /min Dr. Neil Dunne Work Phone: [facility] 06-27-2022 12:13-0400 SaO2% (BldA) [Mass fraction] 100 % Dr. Neil Dunne Work Phone: [facility] 06-27-2022 12:13-0400 Systolic blood pressure 115 mm[Hg] Dr. Neil Dunne Work Phone: [facility] 06-26-2022 10:42-0400 Body height 162.[address] Neil Dunne Work Phone: [facility] 06-26-2022 10:42-0400 Body weight 59.[address] Neil Dunne Work Phone: [facility] 06-26-2022 08:29-0400 Body mass index (BMI) [Ratio] 22.4 kg/m2 Dr. Neil Dunne Work Phone: [facility] 06-26-2022 01:43-0400 Body temperature 97.9 [degF] Dr. Neil Dunne Work Phone: [facility] 06-26-2022 01:43-0400 Diastolic blood pressure 60 mm[Hg] Dr. Neil Dunne Work Phone: [facility] 06-26-2022 01:43-0400 Heart rate 62 /min Dr. Neil Dunne Work Phone: [facility] 06-26-2022 01:43-0400 Respiratory rate 16 /min Dr. Neil Dunne Work Phone: [facility] 06-26-2022 01:43-0400 SaO2% (BldA) [Mass fraction] 100 % Dr. Neil Dunne Work Phone: [facility] 06-26-2022 01:43-0400 Systolic blood pressure 115 mm[Hg] Dr. Neil Dunne Work Phone: [facility] 06-25-2022 21:56-0400 Body height 162.[address] Neil Dunne Work Phone: [facility] 06-25-2022 21:56-0400 Body mass index (BMI) [Ratio] 21.9 kg/m2 Dr. Neil Dunne Work Phone: [facility] 06-25-2022 21:56-0400 Body weight 58.[address] Neil Dunne Work Phone: [facility] 06-25-2022 07:14-0400 Body weight 58.6 kg Rachael Recinos JOY OPERATOR [employer] Work Phone: [facility] 06-25-2022 07:14-0400 Diastolic blood pressure 62 mm[Hg] Rachael Recinos JOY OPERATOR [employer] Work Phone: [facility] 06-25-2022 07:14-0400 Heart rate 70 /min Rachael Recinos JOY OPERATOR [employer] Work Phone: [facility] 06-25-2022 07:14-0400 Respiratory rate 14 /min Rachael Recinos JOY OPERATOR [employer] Work Phone: [facility] 06-25-2022 07:14-0400 SaO2% (BldA) [Mass fraction] 99 % Rachael Recinos JOY OPERATOR [employer] Work Phone: [facility] 06-25-2022 07:14-0400 Systolic blood pressure 108 mm[Hg] Rachael Recinos JOY OPERATOR HELPER[employer] Work Phone: [facility] 02-22-2022 09:31-0500 Body temperature 98.29 [degF] Vale Aleah JOY OPERATOR HELPER[employer] Work Phone: [facility] 02-22-2022 09:31-0500 Body weight 61.51 kg Vale Aleah JOY OPERATOR HELPER[employer] Work Phone: [facility] 02-22-2022 09:31-0500 Diastolic blood pressure 62 mm[Hg] Vale Aleah JOY OPERATOR HELPER[employer] Work Phone: [facility] 02-22-2022 09:31-0500 Heart rate 77 /min Vale Aleah JOY OPERATOR HEL[employer] Work Phone: [facility] 02-22-2022 09:31-0500 Respiratory rate 16 /min Vale Aleah JOY OPERATOR HEL[employer] Work Phone: [facility] 02-22-2022 09:31-0500 SaO2% (BldA) [Mass fraction] 99 % Vale Aleah JOY OPERATOR HELPER[employer] Work Phone: [facility] 02-22-2022 09:31-0500 Systolic blood pressure 108 mm[Hg] Vale Aleah JOY OPERATOR HELPER[employer] Work Phone: [facility] 12-28-2021 10:38-0400 Body temperature 99.61 [degF] Rachael Zurawick JOY OPERATOR HELPER[employer] Work Phone: [facility] 12-28-2021 10:38-0400 Body weight 59.78 kg Rachael Zurawick JOY OPERATOR HEL[employer] Work Phone: [facility] 12-28-2021 10:38-0400 Diastolic blood pressure 60 mm[Hg] Rachael Zurawick JOY OPERATOR HELPER[employer] Work Phone: [facility] 12-28-2021 10:38-0400 Heart rate 69 /min Rachael Zurawick JOY OPERATOR HEL[employer] Work Phone: [facility] 12-28-2021 10:38-0400 Respiratory rate 14 /min Rachael Zurawick JOY OPERATOR HELPER[employer] Work Phone: [facility] 12-28-2021 10:38-0400 SaO2% (BldA) [Mass fraction] 100 % Rachael Zurawick JOY OPERATOR HELPER[employer] Work Phone: [facility] 12-28-2021 10:38-0400 Systolic blood pressure 100 mm[Hg] Rachael Zurawick JOY OPERATOR HELPER.[facility] Work Phone: [facility] 07-27-2021 08:55-0400 Body height 162.56 cm [facility] Work Phone: 07-27-2021 08:55-0400 Body mass index (BMI) [Ratio] 22.9 kg/m2 [facility] Work Phone: 07-27-2021 08:55-0400 Body temperature 98.6 [degF] [facility] Work Phone: 07-27-2021 08:55-0400 Body weight 60.6 kg [facility] Work Phone: 07-27-2021 08:55-0400 Diastolic blood pressure 88 mm[Hg] [facility] Work Phone: 07-27-2021 08:55-0400 Heart rate 73 /min [facility] Work Phone: 07-27-2021 08:55-0400 Respiratory rate 17 /min [facility] Work Phone: 07-27-2021 08:55-0400 SaO2% (BldA) [Mass fraction] 100 % [facility] Work Phone: 07-27-2021 08:55-0400 Systolic blood pressure 125 mm[Hg] [facility] Work Phone: Encounters Encounter Date Encounter Type Care Provider Facility Start: 12-18-2024 End: 12-18-2024 Patient encounter procedure Ami Kenny GRADES 1 6 TUTOR-C -[facility] Work Phone: Start: 12-18-2024 End: 12-18-[address] Jeovany Argueta DO Work Phone: -[facility] Start: 09-26-2024 End: 09-26-2024 Refill Tayo Nguyen MD Work Phone: [facility] Comment on above: Refill Request (Out medication) Refill Request (Out of medication) Start: 09-08-2024 End: 09-10-2024 ambulatory Jeovany Argueta DO Work Phone: [facility] Comment on above: Wellness check Start: 09-07-2024 End: 09-07-2024 Office outpatient new 30 minutes Brianna Ervin MD Work Phone: Dermatology Comment on above: Vitiligo (Primary Dx ); Melasma Start: 09-07-2024 End: 09-07-2024 ambulatory BRIANNA ERVIN Facility:[facility] Start: 08-31-2024 End: 09-03-2024 Telephone encounter Jeovany Argueta DO Work Phone: [facility] Comment on above: Patient Update; Emily ent Question Start: 08-28-2024 End: 08-28-2024 ambulatory JEOVANY ARGUETA Facility:[facility] Start: 08-28-2024 Patient encounter procedure BRIANNA ERVIN [facility] Start: 07-20-2024 End: 07-20-2024 ambulatory Jeovany Argueta Facility[place] Start: 06-18-2024 End: 06-18-[address] Jeovany Argueta DO Work Phone: [facility] Work Phone: Start: 06-18-2024 End: 06-18-[address] Shilpi Boyle MD [facility] Work Phone: Start: 06-18-2024 End: 06-18-2024 ambulatory Jeovany Argueta Facility:[facility] Start: 06-04-2024 End: 06-05-2024 Patient encounter procedure Jeovany Webberon DO Work Phone: [facility] Start: 06-04-2024 End: 06-05-2024 Telephone encounter Jeovany Marcosrison DO Work Phone: [facility] [place] Comment on above: Patient Question (re : labs); Appointment; Orders Start: 05-30-2024 End: 05-30-2024 Telephone encounter Jeovany Argueta DO Work Phone: [facility] [place] Comment on above: Insurance Authorizat ion Start: 05-29-2024 End: 05-29-2024 ambulatory JEOVANY MARCOSRISON Facility:[facility] Start: 05-29-2024 End: 05-29-2024 Patient encounter procedure Jeovany Marcosrison DO Work Phone: [facility] [place] Comment on above: Acute non-recurrent maxillary sinusitis (Primary Dx); Moderate persistent asthma, uncomplicated; Acute cough Start: 02-28-2024 End: 02-28-2024 Telephone encounter Jeovany Webberon DO Work Phone: Family [facility] [place] Comment on above: URI Start: 11-28-2023 End: 11-28-2023 ambulatory JEOVANY MARCOSRISON Facility:[facility] Start: 11-28-2023 End: 11-28-2023 Office outpatient visit 25 minutes Andre Ramon APRN.CNP Work Phone: [facility] Comment on above: Bacterial sinusitis (Primary Dx) Start: 08-02-2023 End: 08-02-2023 Patient encounter procedure Gladis REYNAGA Work Phone: [facility] Comment on above: Sinobronchitis (Prim paige Dx) Start: 08-02-2023 Telephone encounter Jeovany everett DO Work Phone: [facility] [place] Comment on above: Patient Update; Sinu s Problem (/) Start: 06-07-2023 End: 06-07-2023 Patient encounter procedure Tayo Nguyen MD Work Phone: [facility] [place] Comment on above: Bacterial sinusitis (Primary Dx) Start: 01-20-2023 End: 01-20-2023 ambulatory Vale Bullard JOY OPERATOR HELPER.HOSE BUILDER Work Phone: [facility] [place] Comment on above: URI, acute (Primary Dx) Start: 01-20-2023 End: 01-20-2023 Telemedicine consultation with patient Vale Bullard APRN.HOSE BUILDER Work Phone: [facility] [place] Start: 07-30-2022 ambulatory Jeovany grijalva DO Work Phone: [facility] [place] Comment on above: Rash Start: 07-07-2022 Telephone encounter Vale Anthony JOY OPERATOR HELPER.HOSE BUILDER Work Phone: [facility] [place] Comment on above: Results Start: 07-06-2022 Telephone encounter Jeovany everett DO Work Phone: [facility] [place] Comment on above: Results Start: 07-05-2022 Telephone encounter Jeovany everett DO Work Phone: [facility] [place] Comment on above: Lab Orders Start: 06-27-2022 Non-patient / Non-visit Dr. Jennifer Dunne Work Phone: [facility] Start: 06-26-2022 Non-patient / Non-visit Dr. Jennifer Dunne Work Phone: [facility] Start: 06-26-2022 End: 06-27-2022 Evaluation and management of inpatient Dr. Neil Dunne Work Phone: [facility] 3 Start: 06-26-2022 End: 04-16-[address] Neil Dunne Work Phone: [facility] Work Phone: Start: 06-25-2022 End: 06-25-2022 Patient encounter procedure Rachael Recinos JOY OPERATOR HELPER.HOSE BUILDER Work Phone: [facility] Comment on above: Vitiligo (Primary Dx ); Concentration deficit; Intolerance to cold; Generalized joint pain; Fatigue, unspecified type; Screening for HIV (human immunodeficiency virus); Special screening examination for viral disease; Screening for diabetes mellitus; Screening for lipid disorders Start: 02-23-2022 Telephone encounter Jeovany everett DO Work Phone: [facility] Comment on above: requesting a change in ATB Start: 02-22-2022 ambulatory Jeovany grijalva DO Work Phone: [facility] Comment on above: Sore Throat Start: 02-22-2022 End: 02-22-2022 Patient encounter procedure Vale Bullard JOY OPERATOR HELPER.HOSE BUILDER Work Phone: [facility] Comment on above: Sore throat (Primary Dx); URI, acute; Acute otitis media, bilateral Start: 12-28-2021 ambulatory Rachael atkins JOY OPERATOR HELPER.HOSE BUILDER Work Phone: [facility] Comment on above: Robitussin with code ine Start: 12-28-2021 Telephone encounter Rachael fuller JOY OPERATOR HELPER.HOSE BUILDER Work Phone: [facility] Comment on above: Medication Problem Start: 12-28-2021 End: 12-28-2021 Patient encounter procedure Rachael Roche JOY OPERATOR HELPER.HOSE BUILDER Work Phone: [facility] Comment on above: Acute cough (Primary Dx); Bronchitis Start: 11-25-2021 ambulatory Jeovany grijalva DO Work Phone: [facility] Comment on above: Medicine Start: 10-14-2021 Telephone encounter Jeovany everett DO Work Phone: [facility] Comment on above: Patient Update Start: 10-07-2021 Telephone encounter Vale Anthony APRN.HOSE BUILDER Work Phone: [facility] Comment on above: Patient Update Start: 07-27-2021 End: 07-27-2021 Emergency department patient visit [facility] Start: 05-27-2021 ambulatory Jeovany Lemos son DO Work Phone: [facility] Comment on above: Migraines with numbn ess Start: 05-12-2021 Patient encounter status Shantiericka rancho Argueta DO Work Phone: [facility] Work Phone: Procedures Date Procedure Procedure Detail Performing Clinician Start: 06-18-[address] Som Argueta DO Work Phone: Start: 06-26-[address] Neil Dunne Work Phone: Start: 06-25-2022 Computed tomography of abdomen and pelvis with intravenous contrast Dr. Neil Dunne Work Phone: Start: 02-22-2022 STREP A MOLECULAR (POC) Vale Bullard JOY OPERATOR HELPER.HOSE BUILDER Work Phone: Start: 07-27-2021 CT cervical spine wi thout contrast Start: 07-27-2021 CT of head without contrast History of appendectomy Status p ost appendectomy Dr. Neil Dunne Work Phone: Comment on above: This is a 37-year-ol d female who presents for second postoperative visit following laparoscopic appendectomy performed 06/26/2022. She continues to do well in her postoperative recovery from a physical standpoint, but mentally was hung up on the concern that she had somehow disrupted our surgical site inside of her abdomen and needed reassurance that everything was okay. As best I can piece together, patient is having some discomfort with running due to accentuated hip flexion during that activity and her iliopsoas directly under laid the area of her appendix. I assured her that at this point her colon should be well-healed and that any disruption of the surgery would have made her gravely ill by this point. I have urged her to return to activity in a more gradual manner and recommended that she work her way back towards running with light jogging at the present time. We had a brief discussion around any need to evaluate her colon endoscopically, but at this time she confirms she is having normal, nonbloody, regular bowel movements. She also denies any family history for GI diagnoses apart from a grandfather with possible diverticulitis. Therefore, based on her grossly normal intra-abdominal viscera at the time of surgery, pathologically normal appendix, and now normal GI habits at an average risk for colon cancer I recommended that she just be diligent about getting a screening colonoscopy at the appropriate time (47 years of age or just prior). Plan of Treatment Date Care Activity Detail Author Start: 05-29-2025 Covid-19 Vaccine () Covid-19 Vaccine () [facility] Comment on above: Postponed from 11/13/2023 (Declined at t his time) Start: 05-21-2025 HPV TESTING HPV TESTING [facility] Start: 05-21-2025 PAP TESTING PAP TESTING [facility] Start: 05-21-2025 Screening for malignant neoplasm of cervix [facility] Start: 02-12-2025 ambulatory Ambulatory Facility:[facility] Start: 12-26-2024 End: 12-26-2024 Patient encounter procedure 12/26/2024 4:00 PM EDT Office Visit [facility] [place] [address] [place] [address] Jeovany Argueta, [address] [place], [place] [id number] yearly physical [facility] [place] Comment on above: yearly physical Start: 11-14-2024 End: 11-14-2024 Patient encounter procedure 11/14/2024 7:40 AM EDT Office Visit Family [facility] [address] [place] [address] Jeovany Argueta, [address] [place] [address] yearly physical [facility] [place] Comment on above: yearly physical Start: 11-12-2024 Influenza vaccination [facility] Start: 11-06-2024 End: 11-06-2024 Patient encounter procedure 11/06/2024 3:00 PM EDT Office Visit Dermatology [address] [address] Brianna Ervin MD [address] [place] [address] follow up Dermatology Comment on above: follow up Start: 09-10-2024 Influenza vaccination Influenza Vaccine (#1) [facility] Comment on above: Postponed from 11/13/2023 (Declined at t his time) Start: 09-03-2024 End: 12-03-2024 THYROID PEROXIDASE ANTIBODY THYROID PEROXIDASE ANTIBODY Lab Routine Vitiligo Elevated TSH Expected: 09/03/2024, Expires: 12/03/2024 [facility] Work Phone: Comment on above: Expected: 09/03/2024, Expires: Start: 09-03-2024 End: 12-03-2024 Thyrotropin [Units/volume] in Serum or Plasma THYROID STIMULATING HORMONE Lab Routine Vitiligo Elevated TSH Expected: 09/03/2024, Expires: 12/03/2024 [facility] Comment on above: Expected: 09/03/2024, Expires: Start: 09-03-2024 End: 12-03-2024 Thyroxine (T4) free [Mass/volume] in Serum or Plasma T4 FREE/FREE THYROXINE Lab Routine Vitiligo Elevated TSH Expected: 09/03/2024, Expires: 12/03/2024 [facility] Comment on above: Expected: 09/03/2024, Expires: Start: 09-03-2024 End: 12-03-2024 Triiodothyronine (T3) Free [Mass/volume] in Serum or Plasma T3, FREE Lab Routine Vitiligo Elevated TSH Expected: 09/03/2024, Expires: 12/03/2024 [facility] Comment on above: Expected: 09/03/2024, Expires: Start: 06-05-2024 End: 06-05-2024 Patient encounter procedure 06/05/2024 7:40 AM EDT Office Visit [facility] [place] [address] [facility] [place] [address] Vale Bullard APRN.HOSE BUILDER [address] [place] [address] Wellness-DTaP,Tdap,Td Vaccine [facility] Comment on above: Wellness-DTaP,Tdap,Td Vaccine Start: 06-04-2024 End: 09-03-2024 25-hydroxyvitamin D3 [Mass/volume] in Serum or Plasma VITAMIN D 25 HYDROXY Lab Routine Annual physical exam Expected: 06/04/2024, Expires: 09/03/2024 [facility] Comment on above: Expected: 06/04/2024, Expires: Start: 06-04-2024 End: 09-03-2024 CBC W Auto Differential panel - Blood COMPLETE BLOOD COUNT AND DIFFERENTIAL Lab Routine Annual physical exam Expected: 06/04/2024, Expires: 09/03/2024 [facility] Comment on above: Expected: 06/04/2024, Expires: Start: 06-04-2024 End: 09-03-2024 Cobalamin (Vitamin B12) [Mass/volume] in Serum or Plasma VITAMIN B12 Lab Routine Annual physical exam Expected: 06/04/2024, Expires: 09/03/2024 [facility] Comment on above: Expected: 06/04/2024, Expires: Start: 06-04-2024 End: 09-03-2024 Comprehensive metabolic 2000 panel - Serum or Plasma COMPREHENSIVE METABOLIC PANEL Lab Routine Annual physical exam Expected: 06/04/2024, Expires: 09/03/2024 [facility] Comment on above: Expected: 06/04/2024, Expires: Start: 06-04-2024 End: 09-03-2024 Hemoglobin A1c in Blood HEMOGLOBIN A1C Lab Routine Screening for diabetes mellitus Annual physical exam Expected: 06/04/2024, Expires: 09/03/2024 [facility] Work Phone: Comment on above: Expected: 06/04/2024, Expires: Start: 06-04-2024 End: 09-03-2024 Lipid 1996 panel - Serum or Plasma LIPID PANEL, FASTING Lab Routine Annual physical exam Pure hypercholesterolemia Expected: 06/04/2024, Expires: 09/03/2024 [facility] Comment on above: Expected: 06/04/2024, Expires: Start: 06-04-2024 End: 09-03-2024 THYROID PEROXIDASE ANTIBODY THYROID PEROXIDASE ANTIBODY Lab Routine Elevated TSH Expected: 06/04/2024, Expires: 09/03/2024 [facility] Comment on above: Expected: 06/04/2024, Expires: Start: 06-04-2024 End: 09-03-2024 Thyrotropin [Units/volume] in Serum or Plasma THYROID STIMULATING HORMONE Lab Routine Annual physical exam Elevated TSH Expected: 06/04/2024, Expires: 09/03/2024 [facility] Comment on above: Expected: 06/04/2024, Expires: Start: 06-04-2024 End: 09-03-2024 Thyroxine (T4) free [Mass/volume] in Serum or Plasma T4 FREE/FREE THYROXINE Lab Routine Annual physical exam Elevated TSH Expected: 06/04/2024, Expires: 09/03/2024 [facility] Comment on above: Expected: 06/04/2024, Expires: Start: 06-04-2024 End: 09-03-2024 Triiodothyronine (T3) Free [Mass/volume] in Serum or Plasma T3, FREE Lab Routine Elevated TSH Expected: 06/04/2024, Expires: 09/03/2024 [facility] Comment on above: Expected: 06/04/2024, Expires: Start: 11-13-2023 Covid-19 Vaccine ( season) Covid-19 Vaccine () [facility] Start: 11-13-2023 Covid-19 Vaccine () Covid-19 Vaccine () [facility] Start: 11-13-2023 Influenza vaccination [facility] Start: 05-22-2023 Screening for malignant neoplasm of cervix Cervical Cancer Screening [facility] Start: 11-12-2022 Covid-19 Vaccine ( season) Covid-19 Vaccine () [facility] Start: 11-12-2022 Influenza vaccination [facility] Start: 09-10-2022 Influenza vaccination INFLUENZA (#1) [facility] Comment on above: Postponed from 11/12/2021 (Declined at t his time) Start: 08-05-2022 End: 10-05-2022 Comprehensive metabolic 2000 panel - Serum or Plasma COMP METABOLIC PANEL Lab Routine Elevated LFTs Expected: 08/05/2022, Expires: 10/05/2022 [facility] Work Phone: Comment on above: Expected: 08/05/2022, Expires: Start: 08-05-2022 End: 10-05-2022 Lipid 1996 panel - Serum or Plasma LIPID PANEL BASIC Lab Routine Pure hypercholesterolemia Expected: 08/05/2022, Expires: 10/05/2022 [facility] Work Phone: Comment on above: Expected: 08/05/2022, Expires: Start: 08-05-2022 End: 10-05-2022 Thyrotropin [Units/volume] in Serum or Plasma TSH BLD Lab Routine Elevated TSH Expected: 08/05/2022, Expires: 10/05/2022 [facility] Work Phone: Comment on above: Expected: 08/05/2022, Expires: 3 Start: 08-05-2022 End: 10-05-2022 Thyroxine (T4) free [Mass/volume] in Serum or Plasma T4 FREE/FREE THYROX Lab Routine Elevated TSH Expected: 08/05/2022, Expires: 10/05/2022 [facility] Work Phone: Comment on above: Expected: 08/05/2022, Expires: Start: 08-05-2022 End: 10-05-2022 Triiodothyronine (T3) Free [Mass/volume] in Serum or Plasma T3 FREE BLD Lab Routine Elevated TSH Expected: 08/05/2022, Expires: 10/05/2022 [facility] Work Phone: Comment on above: Expected: 08/05/2022, Expires: 3 Start: 06-27-2022 Patient discharge [facility] Start: 06-27-2022 [facility] Start: 06-27-2022 Blood chemistry [facility] Start: 06-26-2022 Application of intermittent pneumatic compression device [facility] Start: 06-26-2022 Following clinical pathway protocol [facility] Start: 06-26-2022 Measuring intake and output [facility] Start: 06-26-2022 End: 06-26-2022 Admission procedure [facility] Start: 06-26-2022 Patient referral to dietitian [facility] Start: 06-25-2022 End: 08-25-2022 25-hydroxyvitamin D3 [Mass/volume] in Serum or Plasma VITAMIN D 25 HYDROXY Lab Routine Fatigue, unspecified type Expected: 06/25/2022, Expires: 08/25/2022 [facility] Work Phone: Comment on above: Expected: 06/25/2022, Expires: 3 Start: 06-25-2022 End: 08-25-2022 C reactive protein [Mass/volume] in Serum or Plasma C-REACTIVE PROTEIN (CRP) Lab Routine Generalized joint pain Expected: 06/25/2022, Expires: 08/25/2022 [facility] Work Phone: Comment on above: Expected: 06/25/2022, Expires: 3 Start: 06-25-2022 End: 08-25-2022 CBC W Auto Differential panel - Blood CBC + DIFF Lab Routine Intolerance to cold Fatigue, unspecified type Expected: 06/25/2022, Expires: 08/25/2022 [facility] Work Phone: Comment on above: Expected: 06/25/2022, Expires: 3 Start: 06-25-2022 End: 08-25-2022 Cobalamin (Vitamin B12) [Mass/volume] in Serum or Plasma VITAMIN B12 BLOOD Lab Routine Fatigue, unspecified type Expected: 06/25/2022, Expires: 08/25/2022 [facility] Work Phone: Comment on above: Expected: 06/25/2022, Expires: 3 Start: 06-25-2022 End: 08-25-2022 Comprehensive metabolic 2000 panel - Serum or Plasma COMP METABOLIC PANEL Lab Routine Fatigue, unspecified type Expected: 06/25/2022, Expires: 08/25/2022 [facility] Work Phone: Comment on above: Expected: 06/25/2022, Expires: 3 Start: 06-25-2022 End: 08-25-2022 Erythrocyte sedimentation rate SED RATE WESTERGREN Lab Routine Generalized joint pain Expected: 06/25/2022, Expires: 08/25/2022 [facility] Work Phone: Comment on above: Expected: 06/25/2022, Expires: 3 Start: 06-25-2022 End: 08-25-2022 Ferritin [Mass/volume] in Serum or Plasma FERRITIN BLD Lab Routine Intolerance to cold Fatigue, unspecified type Expected: 06/25/2022, Expires: 08/25/2022 [facility] Work Phone: Comment on above: Expected: 06/25/2022, Expires: 3 Start: 06-25-2022 End: 08-25-2022 Hemoglobin A1c in Blood HGB A1C Lab Routine Screening for diabetes mellitus Expected: 06/25/2022, Expires: 08/25/2022 [facility] Work Phone: Comment on above: Expected: 06/25/2022, Expires: 3 Start: 06-25-2022 End: 08-25-2022 Hepatitis C virus Ab [Presence] in Serum HEP C AB IA W/CONF SCRN Lab Routine Special screening examination for viral disease Expected: 06/25/2022, Expires: 08/25/2022 [facility] Work Phone: Comment on above: Expected: 06/25/2022, Expires: 3 Start: 06-25-2022 End: 08-25-2022 HIV 1+2 Ab [Presence] in Serum or Plasma by Immunoassay HIV 1 2 COMBO(AG/AB),WITH REFLEX TO DIFFERENTIATION Lab Routine Screening for HIV (human immunodeficiency virus) Expected: 06/25/2022, Expires: 08/25/2022 [facility] Work Phone: Comment on above: Expected: 06/25/2022, Expires: 3 Start: 06-25-2022 End: 08-25-2022 Iron and Iron binding capacity panel - Serum or Plasma IRON + TIBC Lab Routine Intolerance to cold Fatigue, unspecified type Expected: 06/25/2022, Expires: 08/25/2022 [facility] Work Phone: Comment on above: Expected: 06/25/2022, Expires: 3 Start: 06-25-2022 End: 08-25-2022 Lipid 1996 panel - Serum or Plasma LIPID PANEL BASIC Lab Routine Screening for lipid disorders Expected: 06/25/2022, Expires: 08/25/2022 [facility] Work Phone: Comment on above: Expected: 06/25/2022, Expires: 3 Start: 06-25-2022 End: 08-25-2022 Nuclear Ab [Presence] in Serum by Immunoassay JOCY BLOOD Lab Routine Generalized joint pain Expected: 06/25/2022, Expires: 08/25/2022 [facility] Work Phone: Comment on above: Expected: 06/25/2022, Expires: 3 Start: 06-25-2022 End: 08-25-2022 Rheumatoid factor [Units/volume] in Serum or Plasma RHEUMATOID FACTOR BL Lab Routine Generalized joint pain Expected: 06/25/2022, Expires: 08/25/2022 [facility] Work Phone: Comment on above: Expected: 06/25/2022, Expires: 3 Start: 06-25-2022 End: 08-25-2022 Thyrotropin [Units/volume] in Serum or Plasma TSH BLD Lab Routine Intolerance to cold Fatigue, unspecified type Expected: 06/25/2022, Expires: 08/25/2022 [facility] Work Phone: Comment on above: Expected: 06/25/2022, Expires: 3 Start: 06-25-2022 End: 08-25-2022 Thyroxine (T4) free [Mass/volume] in Serum or Plasma T4 FREE/FREE THYROX Lab Routine Intolerance to cold Fatigue, unspecified type Expected: 06/25/2022, Expires: 08/25/2022 [facility] Work Phone: Comment on above: Expected: 06/25/2022, Expires: 3 Start: 06-25-2022 End: 08-25-2022 Triiodothyronine (T3) [Mass/volume] in Serum or Plasma T3 BLD Lab Routine Intolerance to cold Fatigue, unspecified type Expected: 06/25/2022, Expires: 08/25/2022 [facility] Work Phone: Comment on above: Expected: 06/25/2022, Expires: 3 Start: 05-12-2022 COVID-19 VACCINE (#1) COVID-19 VACCINE (#1) [facility] Comment on above: Postponed from 1987 (Declined at t his time) Start: 05-12-2022 COVID-19 VACCINE (1) COVID-19 VACCINE (1) [facility] Comment on above: Postponed from 01/06/1992 (Declined at t his time) Start: 11-12-2021 Influenza vaccination INFLUENZA (#1) [facility] Start: 09-10-2021 Influenza vaccination INFLUENZA (#1) [facility] Comment on above: Postponed from 11/12/2020 (Declined at t his time) Start: 10-25-2019 Urine microalbumin profile DTaP,Tdap,Td Vaccine (7 - Td or Tdap) [facility] Start: 07-27-2007 HPV Vaccine (3 - 3-dose series) HPV Vaccine (3 - 3-dose series) [facility] Start: 2006 Urine microalbumin profile DTAP,TDAP,TD (1 - Tdap) [facility] Start: 2005 HEPATITIS C SCREENING HEPATITIS C SCREENING [facility] Start: 2005 HIV SCREENING HIV SCREENING [facility] Start: 1987 COVID-19 VACCINE (#1) COVID-19 VACCINE (#1) [facility] Start: 1987 HEPATITIS B (1 of 3 - 3-dose series) HEPATITIS B (1 of 3 - 3-dose series) [facility] Anion gap measurement [facility] BUN/Creatinine ratio [facility] Calcium [Mass/volume ] in Serum or Plasma [facility] Carbon dioxide, tota l [Moles/volume] in Serum or Plasma [facility] Carcinoembryonic Ag [Mass/volume] in Serum or Plasma [facility] Chloride [Moles/volu me] in Serum or Plasma [facility] Creatinine [Moles/volume] in Serum or Plasma [facility] Glucose [Mass/volume ] in Serum or Plasma [facility] Hematocrit [Volume Fraction] of Blood [facility] Hemoglobin [Mass/vol ume] in Blood [facility] Leukocytes [#/volume ] in Blood [facility] Magnesium [Mass/volu me] in Serum or Plasma [facility] Mean corpuscular hemoglobin concentration determination [facility] Mean corpuscular hemoglobin determination [facility] Measurement of renal function [facility] Neutrophil count [facility] Neutrophil percent differential count [facility] Patient Education [facility] Work Phone: Patient referral [facility] Work Phone: Platelets [#/volume] in Blood [facility] Potassium [Moles/vol ume] in Serum or Plasma [facility] End: 01-27-2023 Radiologic exam chest 2 views XR CHEST 2V FRONTAL/LAT Radiology Routine Acute cough Bronchitis 1 Occurrences starting 12/28/2021 until 01/27/2023 [facility] Work Phone: Comment on above: 1 Occurrences starting 12/28/2021 until 01/27/2023 Red blood cell count [facility] Red cell distributio n width determination [facility] Sodium [Moles/volume ] in Serum or Plasma [facility] STREP A MOLECULAR (POC) STREP A MOLECULAR (POC) Microbiology Routine Sore throat Ordered: 02/22/2022 [facility] Work Phone: Comment on above: Ordered: 02/22/2022 Urea nitrogen [Mass/volume] in Serum or Plasma [facility] [facility] Immunizations Immunization Date Immunization Notes Care Provider Maria Esther coles 03-28-2007 human papilloma viru s vaccine, quadrivalent Jeovany Argueta DO Work Phone: [facility] Work Phone: 01-10-2007 human papilloma viru s vaccine, quadrivalent Jeovany Argueta DO Work Phone: [facility] Work Phone: Payers Date Payer Category Payer Self-pay [id number] 2018 Private Health Insurance MMO SUP ERMED PPO [id number] 2018 Unknown MMO MMO [employer] PLUS [id number] 2018-Present [phone] [address] [place] [address] PPO [id number] 2018 Unknown [id number] 2013 Unknown [id number] Unknown [id number] Unknown [id number] Unknown [id number] Unknown [id number] Social History Date Type Detail Facility Start: 02-01-2020 End: 11-08-2023 Tobacco smoking status NHIS Ex-smoker [facility] History of tobacco use Cigarette Smoker C [facility] Start: 02-01-2020 End: 02-22-2022 Tobacco use and exposure Smokeless tobacco non-user [facility] Start: 05-12-2021 End: 11-28-2023 Alcohol intake Ex-drinker (finding) [facility] Start: 05-12-2021 End: 07-28-2022 Alcohol intake [facility] Start: 01-10-2007 End: 02-22-2022 Tobacco Comment 1.5/wk [facility] Start: 1985 Sex Assigned At Not on file C [facility] Start: 04-12-2021 End: 12-28-2021 Exposure to SARS-CoV-2 (event) Not sure [facility] Start: 07-27-2021 End: 06-26-2022 Tobacco smoking status [facility] Unknown if ever smoked [facility] Start: 1985 Sex Assigned At Female [facility] History of tobacco use Current smoker [facility] Start: 12-28-2021 End: 06-22-2022 History SDOH Alcohol Frequency 1 [facility] Start: 12-28-2021 End: 06-22-2022 History SDOH Alcohol Std Drinks 0 [facility] Start: 12-28-2021 History SDOH Social Connections Phone 98 [facility] Start: 12-28-2021 End: 06-22-2022 History SDOH Social Connections Living 3 [facility] Start: 12-28-2021 End: 06-22-2022 History SDOH Physical Activity DPW 4 [facility] Start: 12-28-2021 End: 06-22-2022 History SDOH Physical Activity MPS 6 [facility] Start: 12-28-2021 End: 06-22-2022 History SDOH Transport Med 2 [facility] Start: 06-22-2022 End: 07-28-2022 Social connection and isolation panel [facility] Do you belong to any clubs or organizations such as denominational groups, unions, fraternal or athletic groups, or school groups? Yes [facility] Are you now , , , , never or living with a partner? [facility] How often to you hav e a drink containing alcohol? Never [facility] How many standard drinks containing alcohol do you have on a typical day? Patient does not drink [facility] How hard is it for y ou to pay for the very basics like food, housing, medical care, and heating Somewhat hard [facility] Do you feel stress - tense, restless, nervous, or anxious, or unable to sleep at night because your mind is troubled all the time - these days [OSQ] Rather much [facility] (I/We) worried mike er (my/our) food would run out before (I/we) got money to buy more. Sometimes true [facility] The food that (I/we) bought just didn't last, and (I/we) didn't have money to get more. Never true [facility] In the past 12 month s, was there a time when you were not able to pay the mortgage or rent on time? No [facility] Start: 07-07-2022 Gender identity Identifies as female gender (finding) [facility] Start: 07-07-2022 Sexual orientation Heterosexual (aneta persaud) [facility] Start: 06-22-2024 Sex Female (finding) [facility] NEGATED: Highlighted row [facility] Medical Equipment Procedure Code Equipment Code Equipment Origin al Text Equipment Identifier Dates Appendectomy, laparoscopic Surgical staple loading unit, non-cutting [id number] FDA Start: 06-26-2022 Goals Date Patient Goal Desired Activity /State Functional Status Date Assessment Result Facility 06-27-2022 Functional status Ambulates;Up ad kale [facility] Work Phone: 06-26-2022 Functional status Assistive Devices None [facility] Work Phone: Mental Status Date Assessment Result Facility 06-27-2022 Cognitive function Level Of Cons ciousness Awake;Alert;Appropriate;Follow s Commands [facility] Work Phone: 06-26-2022 Cognitive function Appropriate;Cooperativ e [facility] Work Phone: Clinical Notes 06-02-2021 to 09-26-2024 Telephone Encounter - [place] Rachael Marques - 09/26/2024 3:15 PM EDTTelephone Encounter - [place] Rachael Marques - 09/26/2024 3:15 PM EDTPatient Instructions Note Date & Type Note Facility 09-26-2024 Telephone encounter Note Prescription Refill Information The patient has been identified by name and date of : Yes Caregiver verified no other encounters exist for this prescription request: Yes Caregiver confirmed with patient/requestor that no other refills are due, in the near future, with this provider at this time: Yes The last office visit in the department: 05/29/24 Does the patient have a future office visit with this provider/department: Yes Requested Prescriptions Pending Prescriptions Disp Refills fluticasone-salmeterol (ADVAIR DISKUS) 250-50 mcg/dose inhaler 60 each 5 Sig: Inhale 1 puff as instructed two times a day. Rinse and gargle mouth after use with water. Patient is out of medication, please send today. Rachael Marques September 26, 2024 3:16 PM [facility] 09-26-2024 Miscellaneous Notes Prescription Refill Information The patient has been identified by name and date of : Yes Caregiver verified no other encounters exist for this prescription request: Yes Caregiver confirmed with patient/requestor that no other refills are due, in the near future, with this provider at this time: Yes The last office visit in the department: 05/29/24 Does the patient have a future office visit with this provider/department: Yes Requested Prescriptions Pending Prescriptions Disp Refills fluticasone-salmeterol (ADVAIR DISKUS) 250-50 mcg/dose inhaler 60 each 5 Sig: Inhale 1 puff as instructed two times a day. Rinse and gargle mouth after use with water. Patient is out of medication, please send today. Rachael Marques September 26, 2024 3:16 PM documented in this encounter [facility] 09-26-2024 Telephone encounter Note Prescription Refill Information The patient has been identified by name and date of : Yes Caregiver verified no other encounters exist for this prescription request: Yes Caregiver confirmed with patient/requestor that no other refills are due, in the near future, with this provider at this time: Yes The last office visit in the department: 05/29/24 Does the patient have a future office visit with this provider/department: Yes Requested Prescriptions Pending Prescriptions Disp Refills albuterol HFA (VENTOLIN HFA) 90 mcg/actuation inhaler 1 each 5 Sig: Inhale 2 puffs as instructed every 4 hours as needed for wheezing/shortness of breath. Patient is out of medication and needs today. Rachael [facility] September 26, 2024 3:14 PM [facility] 09-26-2024 Miscellaneous Notes Prescription Refill Information The patient has been identified by name and date of : Yes Caregiver verified no other encounters exist for this prescription request: Yes Caregiver confirmed with patient/requestor that no other refills are due, in the near future, with this provider at this time: Yes The last office visit in the department: 05/29/24 Does the patient have a future office visit with this provider/department: Yes Requested Prescriptions Pending Prescriptions Disp Refills albuterol HFA (VENTOLIN HFA) 90 mcg/actuation inhaler 1 each 5 Sig: Inhale 2 puffs as instructed every 4 hours as needed for wheezing/shortness of breath. Patient is out of medication and needs today. Rachael Jackson [facility] September 26, 2024 3:14 PM documented in this encounter [facility] 09-07-2024 Instructions Brianna Ervin MD - 09/07/2024 4:53 PM EDT If your topical medication is called triamcinolone, please stop it as this is a strong steroid that is too strong for the face If your topical medication is called tacrolimus, ok to continue Continue your opzelura as prescribed Once daily antihistamine - claritin, adam, zyrtec documented in this encounter [facility] 09-07-2024 History of Present illness Narrative New Patient Chief Complaint: Vitiligo History of Present Ilness: Heron MAKI is a 39 year old female Patient is here for: 1) Vitiligo Patient has been seen at [facility] and was diagnosed with melasma Location: buttocks, groin, face Duration: since age 15 had spots on scalp, officially diagnosed 4 years ago Symptoms: eyes have been itching since starting opzelura Current treatment: opzelura - used on and off x 7 days, tacrolimus ointment, wears SPF 50 - 70 daily Past treatments : none Pertinent Past Medical History: History of skin cancer or atypical nevi No Specialty Problems Dermatology Problems Striae atrophicae Pertinent Family medical history: History of melanoma No, BCC - grandmother Review of Systems: Constitutional: Denies fever, chills, night sweats, unintentional weight loss. Skin per HPI. No other new/concerning skin growth. Physical Exam: General: well appearing, of stated age, in no acute distress Neurology: alert and oriented times three Psychiatry: in a happy mood Skin: Agrawal skin type: II Skin exam performed of face, arms, legs, buttocks performed. Skin exam normal with the exception of: - subtle depigmented patch mid face/cheeks +wood's lamp - hyperpigmented patches lateral cheeks, forehead, perioral region - upper midline buttocks with depigmented patch +wood's lamp - arms and legs with few scattered hypopigmented macules, -wood's lamp Assessment and Plan: #Vitiligo, <5%TBSA - We discussed the diagnosis, risk/benefits of treatment options and prognosis at length. - We reviewed the autoimmune etiology of the condition. Offered screening for thyroid disorders and anemia - patient recently had completed with PCP. Reviewed labs as above. - We discussed treatment options, including observation, topical therapy, laser therapy, and phototherapy; we also reviewed the unpredictable course of this condition. - Continue opzelura twice daily to affected areas. Discussed to not apply in/around the eyes (no vitiligo present in/around the eyes at this time) - Patient unsure which is the second medication she is using - triamcinolone or tacrolimus. If your topical medication is called triamcinolone, please stop it as this is a strong steroid that is too strong for the face If your topical medication is called tacrolimus, ok to continue - Start once daily non-sedating antihistamine for itching around the eyes - claritin, adam, zyrtec - Advised patient to minimize sun exposure, use sunscreen daily (spf 45 or greater), and wear hats and sun protective clothing. - Photos today for monitoring - We discussed that her vitiligo appears very subtle on the face at this time, and is likely more noticeable due to the contrast with the melasma - Do not need to make any changes to diet, lifestyle etc #Melasma - Recommend to hold on treatment at this time until vitiligo improved due to risk of skin irritation with multiple topicals Return to clinic 2-3 months or sooner if something concerning arises. The documentation for this note was completed by Ariadna Norris RN acting as scribe for Brianna Ervin MD. September 07, 2024 4:12 PM. I agree with the Chief Complaint, ROS, and Past Histories independently gathered by the clinical patient support specialist and the remaining scribed note accurately describes my personal service to the patient. Brianna Ervin MD September 07, 2024 documented in this encounter [facility] 09-07-2024 Note HNO ID: [id number] Author: BRIANNA ERVIN MD Service: ? Author Type: Physician Type: Progress Notes Filed: 09/07/2024 17:13 Note Text: New Patient Chief Complaint: Vitiligo History of Present Ilness: Heron MAKI is a 39 year old female Patient is here for: 1) Vitiligo Patient has been seen at [facility] and was diagnosed with melasma Location: buttocks, groin, face Duration: since age 15 had spots on scalp, officially diagnosed 4 years ago Symptoms: eyes have been itching since starting opzelura Current treatment: opzelura - used on and off x 7 days, tacrolimus ointment, wears SPF 50 - 70 daily Past treatments : none Pertinent Past Medical History: History of skin cancer or atypical nevi No Specialty Problems Dermatology Problems Striae atrophicae Pertinent Family medical history: History of melanoma No, BCC - grandmother Review of Systems: Constitutional: Denies fever, chills, night sweats, unintentional weight loss. Skin per HPI. No other new/concerning skin growth. Physical Exam: General: well appearing, of stated age, in no acute distress Neurology: alert and oriented times three Psychiatry: in a happy mood Skin: Agrawal skin type: II Skin exam performed of face, arms, legs, buttocks performed. Skin exam normal with the exception of: - subtle depigmented patch mid face/cheeks +wood's lamp - hyperpigmented patches lateral cheeks, forehead, perioral region - upper midline buttocks with depigmented patch +wood's lamp - arms and legs with few scattered hypopigmented macules, -wood's lamp Assessment and Plan: #Vitiligo, <5%TBSA - We discussed the diagnosis, risk/benefits of treatment options and prognosis at length. - We reviewed the autoimmune etiology of the condition. Offered screening for thyroid disorders and anemia - patient recently had completed with PCP. Reviewed labs as above. - We discussed treatment options, including observation, topical therapy, laser therapy, and phototherapy; we also reviewed the unpredictable course of this condition. - Continue opzelura twice daily to affected areas. Discussed to not apply in/around the eyes (no vitiligo present in/around the eyes at this time) - Patient unsure which is the second medication she is using - triamcinolone or tacrolimus. If your topical medication is called triamcinolone, please stop it as this is a strong steroid that is too strong for the face If your topical medication is called tacrolimus, ok to continue - Start once daily non-sedating antihistamine for itching around the eyes - adam fuentes zyrtec - Advised patient to minimize sun exposure, use sunscreen daily (spf 45 or greater), and wear hats and sun protective clothing. - Photos today for monitoring - We discussed that her vitiligo appears very subtle on the face at this time, and is likely more noticeable due to the contrast with the melasma - Do not need to make any changes to diet, lifestyle etc #Melasma - Recommend to hold on treatment at this time until vitiligo improved due to risk of skin irritation with multiple topicals Return to clinic 2-3 months or sooner if something concerning arises. The documentation for this note was completed by Ariadna Norris RN acting as scribe for Brianna Ervin MD. September 07, 2024 4:12 PM. I agree with the Chief Complaint, ROS, and Past Histories independently gathered by the clinical patient support specialist and the remaining scribed note accurately describes my personal service to the patient. Brianna Ervin MD September 07, 2024 [facility] 09-03-2024 Telephone encounter Note Pt returned call and given provider's message below with verbalized understanding. [facility] 09-03-2024 Miscellaneous Notes Pt returned call and given provider's message below with verbalized understanding. Called and left a voicemail for the Patient to call back and ask for a nurse to receive the providers message. Rosa Hay RN Please let her know that I tested her for Elsa's on 08/28 and her thyroid peroxidase antibody is negative as well as all her thyroid function testing labs are normal (free t4, Free t3, TSH) Jeovany Argueta DO Pt called in and reports she just saw the heading repairer and was diagnosed with autoimmune disease Vitiligo. She states the [employer] said she should see if her PCP would test her for Elsa as the symptoms are very similar and it is also an autoimmune disease. Please call and advise Pt. Rosa Hay RN documented in this encounter [facility] 09-03-2024 Telephone encounter Note Called and left a voicemail for the Patient to call back and ask for a nurse to receive the providers message. Rosa Hay RN [facility] 09-03-2024 Telephone encounter Note Please let her know that I tested her for Elsa's on 08/28 and her thyroid peroxidase antibody is negative as well as all her thyroid function testing labs are normal (free t4, Free t3, TSH) Jeovany Argueta DO [facility] 08-31-2024 Telephone encounter Note Pt called in and reports she just saw the heading repairer and was diagnosed with autoimmune disease Vitiligo. She states the [employer] said she should see if her PCP would test her for Elsa as the symptoms are very similar and it is also an autoimmune disease. Please call and advise Pt. Rosa Hay RN [facility] 06-18-2024 Radiology Diagnostic study note [facility] Imaging Services [address] [place], [place] [address] [address] Pelvic w/ Transvaginal MR#: [id number] Acct: [id number] Name: HERON MAKI Rep #: [id number] : 1985 F 39 From: Gregory Mckay DO PCP: Dr. Jeovany Argueta, DO Status: RE G CLI Study:Pelvic w/ Transvaginal Date of Exam: 06/18/24 Exam# [id number] Ordering Dr: Shilpi Dow MD PROCEDURE: Pelvic ultrasound transabdominal and transvaginal. 06/18/2024 REASON FOR EXAM: HEAVY MENSES TECHNIQUE: Transabdominal and transvaginal pelvic ultrasound images were obtained. COMPARISON: None available FINDINGS: The included portions of the urinary bladder show no specific abnormality. The uterus is anteverted measuring 10.3 x 6.0 x 5.2 cm. No discrete uterine myometrial or cervical mass is demonstrated. The endometrium measures 2.1 cm in total thickness. On transvaginal images, there is suggestion of an ovoid lesion within the endo myometrial canal, isoechoic to the peripheral margins, measuring 2.1 x 2.2 x 1.2 cm, was with some internal vascularity on Doppler evaluation. The left ovary is 4.0 x 2.2 x 2.6 cm. A few left ovarian follicles are present,the largest at 1.7 cm. There appears to be blood flow in the left ovary on Doppler evaluation. The right ovary is 3.5 x 2.1 x 2.4 cm. Slightly hyperechoic mixed echogenicity lesion central right ovary measuring 2.2 cm could represent a solid lesion versus small hemorrhagic cyst. There appears to be blood flow in the right ovary on Doppler evaluation. No significant free pelvic fluid. US/Pelvic w/ Transvaginal IMPRESSION: In the endometrial canal, there is a 2.2 cm fairly well-marginated ovoid structure, isoechoic to peripheral endometrium, with some internal blood flow on Doppler evaluation. This could represent an endometrial polyp versus other nonspecific endometrial lesion. Biopsy or hysteroscopy is suggested. No discrete uterine or myometrial mass demonstrated. A few small left ovarian follicles are present, the largest at 1.7 cm. There faheem 2.2 cm mildly echogenic mixed echogenicity structure in the central right ovary, possible small hemorrhagic cyst or solid lesion. No evidence of ovarian torsion. This could be re-evaluated with a follow-up pelvic ultrasound in 1-2 menstrual cycles. Reading Location: [facility] CC: Dr. Jeovany Argueta DO; Dr. Shilpi Boyle MD ~ Social Group Worker: Signed [facility] 06-05-2024 Telephone encounter Note Patient called and notified of below. Patient voices understanding. Taylor Redd RN [facility] 06-05-2024 Miscellaneous Notes Patient called and notified of below. Patient voices understanding. Taylor Redd RN Called and left a voicemail for the patient to call back and ask for a nurse to receive the providers message. Also sent pt a [email or web address] notification with instructions on fasting labs. Called and left a voicemail for the Patient to call back and ask for a nurse to receive the providers message. Rosa Hay RN Please let her know a full fasting lab panel is now ordered when she is able to have drawn Jeovany Argueta DO Pt called in as she accidentally scheduled herself for an appt tomorrow with Vale Bullard but states it is supposed to be her daughter Emma. Fixed that appt but noted that pt herself has not had a yearly physical in several years and also her last labs were done in 2023. Yearly physical booked with Dr. Argueta for 11/14/24. Pt states she just saw Dr. Argueta last week and Dr. Argueta was going to place orders for pt to get her thyroid checked. No orders placed and nothing noted in OV note. Will pend orders and forward to Dr. Argueta and her team. Please add or change dx codes as appropriate. Please call pt when orders are placed. documented in this encounter [facility] 06-05-2024 Telephone encounter Note Called and left a voicemail for the patient to call back and ask for a nurse to receive the providers message. Also sent pt a [email or web address] notification with instructions on fasting labs. [facility] 06-04-2024 Telephone encounter Note Called and left a voicemail for the Patient to call back and ask for a nurse to receive the providers message. Rosa Hay RN [facility] 06-04-2024 Telephone encounter Note Please let her know a full fasting lab panel is now ordered when she is able to have drawn Jeovany Argueta DO [facility] 06-04-2024 Telephone encounter Note Pt called in as she accidentally scheduled herself for an appt tomorrow with Vale Aleah but states it is supposed to be her daughter Emma. Fixed that appt but noted that pt herself has not had a yearly physical in several years and also her last labs were done in 2022. Yearly physical booked with Dr. Argueta for 11/14/24. Pt states she just saw Dr. Argueta last week and Dr. Argueta was going to place orders for pt to get her thyroid checked. No orders placed and nothing noted in OV note. Will pend orders and forward to Dr. Argueta and her team. Please add or change dx codes as appropriate. Please call pt when orders are placed. [facility] 05-30-2024 Note HNO ID: [id number] Author: JEOVANY ARGUETA, DO Service: ? Author Type: Physician Type: Progress Notes Filed: 05/30/2024 21:04 Note Text: CC: Heron MAKI is a 39 year old female who presents to the office for URI HPI: URI symptoms for the last 4-6 weeks, is struggling to "get over this illness, when I think it is going away it comes back." + sinus pressure and pain as well as PND. No fevers or chills. She is concerned due to her history of asthma. She has her albuterol MDI and is using it as needed. No dyspnea or hemoptysis, no sore throat. + ear pressure, + sick contacts. 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 amoxicillin-clavulanate potassium (AUGMENTIN) 875-125 mg per tablet Take 1 tablet by mouth two times a day for 14 days. azithromycin (ZITHROMAX) 250 mg tablet Take 1 tablet by mouth as directed. albuterol HFA (VENTOLIN HFA) 90 mcg/actuation inhaler Inhale 2 Puffs as instructed every 4 hours as needed for wheezing/shortness of breath. fluticasone (FLONASE) 50 mcg/actuation nasal spray Use 2 Sprays in each nostril once daily. Rinse mouth after use. OPZELURA 1.5 % cream apply thin layer to affected area twice a day fluticasone-salmeterol (ADVAIR DISKUS) 250-50 mcg/dose inhaler Inhale 1 Puff as instructed twice daily. Rinse and gargle mouth after use with water. topiramate (TOPAMAX) 50 mg tablet Take 50 mg by mouth once daily. lamoTRIgine (LAMICTAL) 150 mg tablet Take 1 tablet by mouth twice daily. (Patient taking differently: Take 200 mg by mouth two times a day.) hydrOXYzine HCl (ATARAX) 25 mg tablet Take 1 tablet by mouth twice daily. (Patient taking differently: Take 25 mg by mouth as needed for anxiety.) multivit [id number]-herb 186 3.3 mg iron-25 mcg tab vitamin B complex (B COMPLEX 1 ORAL) No current facility-administered medications for this visit. ALLERGIES Allergen Reactions Animal Dander Prednisone Hives, Rash, Swelling Social History Tobacco Use Smoking status: Former Types: Cigarettes Smokeless tobacco: Never Tobacco comments: 1.5/wk Substance Use Topics Alcohol use: Not Currently Alcohol/week: 4.0 standard drinks of alcohol Types: 4 Cans of Beer (12oz) per week Drug use: Yes Types: Marijuana Comment: medical ROS: See HPI PE: BP 120/80 Pulse 80 Temp (Src) 97 (Right Tympanic) Resp 16 Wt 133 lb (60.3kg) LMP 05/25/2024 Gen: AANDOX3, NAD, non-toxic appearing HEENT: PERRLA, EOMs intact b/l, nares with congestion and posterior drainage, + maxillary sinus TTP b/l, pharynx without erythema, exudate, lesions, + thick yellow drainage. Uvula midline. MMM, EAC wnl, TM with serous effusion b/l without rupture Neck: No LAD, no thyromegaly, no meningismus. CV: RRR, no murmur, normal s1s2 Lungs: CTA b/l, no distress, + scattered end expir minimal wheezing Skin: No rashes, lesions, or wounds on exposed skin. No edema, normal pulses ASSESSMENT/PLAN: 1. Acute non-recurrent maxillary sinusitis - ICD9: 461.0, ICD10: J01.00 (primary diagnosis) - Will begin treatment with as per antibiotic as written, see orders - Supportive care with plenty of fluids, rest, and analgesia prn. - AMOXICILLIN 875 MG-POTASSIUM CLAVULANATE 125 MG TABLET 2. Moderate persistent asthma, uncomplicated - ICD9: 493.90, ICD10: J45.40 - Mild intermittent asthma worse and start on rx by neb as below prn - Avoidance of triggers recommended - NEBULIZER - AEROSOL MASK USED W NEBULIZE - ALBUTEROL SULFATE CONCENTRATE 5 MG/ML(0.5 %) SOLUTION FOR NEBULIZATION 3. Acute cough - ICD9: 786.2, ICD10: R05.1 See above - NEBULIZER - AEROSOL MASK USED W NEBULIZE - ALBUTEROL SULFATE CONCENTRATE 5 MG/ML(0.5 %) SOLUTION FOR NEBULIZATION Jeovany Argueta DO Return if no improvement. Follow up with Jeovany Argueta DO. To ER if develops chest pain, shortness of breath. Discussed risks, benefits, alternatives, and potential side effects of medications. Patient/Guardian expressed understanding and agreed with the plan. See patient instructions. Jeovany Argueta DO [address] [place] [address] [facility] 05-30-2024 History of Present illness Narrative CC: Heron MAKI is a 39 year old female who presents to the office for URI HPI: URI symptoms for the last 4-6 weeks, is struggling to "get over this illness, when I think it is going away it comes back." + sinus pressure and pain as well as PND. No fevers or chills. She is concerned due to her history of asthma. She has her albuterol MDI and is using it as needed. No dyspnea or hemoptysis, no sore throat. + ear pressure, + sick contacts. 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 amoxicillin-clavulanate potassium (AUGMENTIN) 875-125 mg per tablet Take 1 tablet by mouth two times a day for 14 days. azithromycin (ZITHROMAX) 250 mg tablet Take 1 tablet by mouth as directed. albuterol HFA (VENTOLIN HFA) 90 mcg/actuation inhaler Inhale 2 Puffs as instructed every 4 hours as needed for wheezing/shortness of breath. fluticasone (FLONASE) 50 mcg/actuation nasal spray Use 2 Sprays in each nostril once daily. Rinse mouth after use. OPZELURA 1.5 % cream apply thin layer to affected area twice a day fluticasone-salmeterol (ADVAIR DISKUS) 250-50 mcg/dose inhaler Inhale 1 Puff as instructed twice daily. Rinse and gargle mouth after use with water. topiramate (TOPAMAX) 50 mg tablet Take 50 mg by mouth once daily. lamoTRIgine (LAMICTAL) 150 mg tablet Take 1 tablet by mouth twice daily. (Patient taking differently: Take 200 mg by mouth two times a day.) hydrOXYzine HCl (ATARAX) 25 mg tablet Take 1 tablet by mouth twice daily. (Patient taking differently: Take 25 mg by mouth as needed for anxiety.) multivit [id number]-ugje-[id number]-herb 186 3.3 mg iron-25 mcg tab vitamin B complex (B COMPLEX 1 ORAL) No current facility-administered medications for this visit. ALLERGIES Allergen Reactions Animal Dander Prednisone Hives, Rash, Swelling Social History Tobacco Use Smoking status: Former Types: Cigarettes Smokeless tobacco: Never Tobacco comments: 1.5/wk Substance Use Topics Alcohol use: Not Currently Alcohol/week: 4.0 standard drinks of alcohol Types: 4 Cans of Beer (12oz) per week Drug use: Yes Types: Marijuana Comment: medical ROS: See HPI PE: BP 120/80 Pulse 80 Temp (Src) 97 (Right Tympanic) Resp 16 Wt 133 lb (60.3kg) LMP 05/25/2024 Gen: A&OX3, NAD, non-toxic appearing HEENT: PERRLA, EOMs intact b/l, nares with congestion and posterior drainage, + maxillary sinus TTP b/l, pharynx without erythema, exudate, lesions, + thick yellow drainage. Uvula midline. MMM, EAC wnl, TM with serous effusion b/l without rupture Neck: No LAD, no thyromegaly, no meningismus. CV: RRR, no murmur, normal s1s2 Lungs: CTA b/l, no distress, + scattered end expir minimal wheezing Skin: No rashes, lesions, or wounds on exposed skin. No edema, normal pulses ASSESSMENT/PLAN: 1. Acute non-recurrent maxillary sinusitis - ICD9: 461.0, ICD10: J01.00 (primary diagnosis) - Will begin treatment with as per antibiotic as written, see orders - Supportive care with plenty of fluids, rest, and analgesia prn. - AMOXICILLIN 875 MG-POTASSIUM CLAVULANATE 125 MG TABLET 2. Moderate persistent asthma, uncomplicated - ICD9: 493.90, ICD10: J45.40 - Mild intermittent asthma worse and start on rx by neb as below prn - Avoidance of triggers recommended - NEBULIZER - AEROSOL MASK USED W NEBULIZE - ALBUTEROL SULFATE CONCENTRATE 5 MG/ML(0.5 %) SOLUTION FOR NEBULIZATION 3. Acute cough - ICD9: 786.2, ICD10: R05.1 See above - NEBULIZER - AEROSOL MASK USED W NEBULIZE - ALBUTEROL SULFATE CONCENTRATE 5 MG/ML(0.5 %) SOLUTION FOR NEBULIZATION Jeovany Argueta DO Return if no improvement. Follow up with Jeovany Argueta DO. To ER if develops chest pain, shortness of breath. Discussed risks, benefits, alternatives, and potential side effects of medications. Patient/Guardian expressed understanding and agreed with the plan. See patient instructions. Jeovany Argueta DO [address] [place] [address] documented in this encounter [facility] 05-30-2024 Telephone encounter Note Called the pharmacy and there was a paid claim from insurance. This was picked up. [facility] 05-30-2024 Miscellaneous Notes Called the pharmacy and there was a paid claim from insurance. This was picked up. Electronic PA rec'd and completed for albuterol via nebulizer. This was denied. Prescriber Name: Jeovany Argueta Prescriber Phone: [phone] Prescriber Fax: [phone] Dear HERON LANGK: [facility] received a request for coverage of Albuterol Sulfate Nebulizer Soln for you. Your plan has criteria in place for coverage of this medicine. We needed additional clinical information from your prescriber in order to make a decision to either approve or deny the request. We did not receive the additional clinical information within the time allowed to make the decision; therefore, the request was denied. This is the initial adverse determination for this request. The request was denied because: Your plan only covers this drug when you meet one of these options: A) You have tried other drugs your plan covers (preferred drugs), and they did not work well for you, or B) Your doctor gives us a medical reason you cannot take those other drugs. For your plan, you may need to try up to three preferred drugs. We have denied your request because you do not meet any of these conditions. We reviewed the information we had. Your request has been denied. Your doctor can send us any new or missing information for us to review. The preferred drug for your plan is: albuterol inhalation solution (except NDCs [id number]). (Requirement: 3 in a class with 3 or more alternatives, 2 in a class with 2 alternatives, or 1 in a class with only 1 alternative). Your doctor may need to get approval from your plan for preferred drugs. For this drug, you may have to meet other criteria. You can request the drug policy for more details. You can also request other plan documents for your review documented in this encounter [facility] 05-30-2024 Telephone encounter Note Electronic PA rec'd and completed for albuterol via nebulizer. This was denied. Prescriber Name: Jeovany Argueta Prescriber Phone: [phone] Prescriber Fax: [phone] Dear HERON LANGK: [facility] received a request for coverage of Albuterol Sulfate Nebulizer Soln for you. Your plan has criteria in place for coverage of this medicine. We needed additional clinical information from your prescriber in order to make a decision to either approve or deny the request. We did not receive the additional clinical information within the time allowed to make the decision; therefore, the request was denied. This is the initial adverse determination for this request. The request was denied because: Your plan only covers this drug when you meet one of these options: A) You have tried other drugs your plan covers (preferred drugs), and they did not work well for you, or B) Your doctor gives us a medical reason you cannot take those other drugs. For your plan, you may need to try up to three preferred drugs. We have denied your request because you do not meet any of these conditions. We reviewed the information we had. Your request has been denied. Your doctor can send us any new or missing information for us to review. The preferred drug for your plan is: albuterol inhalation solution ([place] [id number]). (Requirement: 3 in a class with 3 or more alternatives, 2 in a class with 2 alternatives, or 1 in a class with only 1 alternative). Your doctor may need to get approval from your plan for preferred drugs. For this drug, you may have to meet other criteria. You can request the drug policy for more details. You can also request other plan documents for your review [facility] 02-28-2024 Telephone encounter Note Pt informed via SendRR message Autumn Millard MA [facility] 02-28-2024 Miscellaneous Notes Pt informed via SendRR message Autumn Millard MA Please let her know rx sent in as below Jeovany Argueta, DO The following approved medication requests have been transmitted electronically. Requested Prescriptions Signed Prescriptions Disp Refills azithromycin (ZITHROMAX) 250 mg tablet 6 tablet 0 Sig: Take 1 tablet by mouth as directed. Authorizing Provider: JEOVANY ARGUETA DO Patient calls back and states [facility] [address] [place] [address] [facility] [phone]. LM for pt to contact office Janet Hurt MA Please let her know I am okay with sending in an rx as below What pharmacy? Jeovany Argueta DO Patient calling in to request Virtual Appt with provider to address her upper respiratory concerns. Pt currently in [place], [place]. Pt advised to seek care at local [facility] or Urgent Care in her area for evaluation, unless PCP advises differently after reviewing this message. Pt verbalized understanding. Kathryn Solo RN Please see pt MC message -- Hello! I m on vacation with my family and am coughing up green phlegm. Is there anyway we can send an antibiotic or zpac to a pharmacy down here please! documented in this encounter [facility] 02-28-2024 Telephone encounter Note Please let her know rx sent in as below Jeovany Argueta DO The following approved medication requests have been transmitted electronically. Requested Prescriptions Signed Prescriptions Disp Refills azithromycin (ZITHROMAX) 250 mg tablet 6 tablet 0 Sig: Take 1 tablet by mouth as directed. Authorizing Provider: JEOVANY ARGUETA DO [facility] 02-28-2024 Telephone encounter Note Patient calls back and states [facility] [address] [place] [address] [facility] [phone]. [facility] 02-28-2024 Telephone encounter Note LM for pt to contact office Janet Hurt MA [facility] 02-28-2024 Telephone encounter Note Please let her know I am okay with sending in an rx as below What pharmacy? Jeovany Argueta DO [facility] 02-28-2024 Telephone encounter Note Patient calling in to request Virtual Appt with provider to address her upper respiratory concerns. Pt currently in [place], [place]. Pt advised to seek care at local [facility] or Urgent Care in her area for evaluation, unless PCP advises differently after reviewing this message. Pt verbalized understanding. Kathryn Solo RN [facility] 02-28-2024 Telephone encounter Note Please see pt MC message -- Hello! I m on vacation with my family and am coughing up green phlegm. Is there anyway we can send an antibiotic or zpac to a pharmacy down here please! [facility] 11-28-2023 Note HNO ID: [id number] Author: ANDRE RAMON APRN.HOSE BUILDER Service: ? Author Type: Nurse Practitioner Type: Progress Notes Filed: 11/28/2023 17:11 Note Text: Subjective HPI Nontoxic-appearing female presents urgent care chief complaint sinus pressure drainage and cough. Duration of symptoms 10 days. Associated symptoms listed above. Initially started with fever body aches chills and flulike symptoms. This did improve. Most prominent symptom today is sinus pressure. OTC medications little to no success. History of sinus factions this is similar. Denies any fever body aches chills productive cough chest pain shortness of breath pleuritic pain hemoptysis nausea vomiting abdominal pain change in bowel or bladder habits. Past medical history prescription medication use and allergies reviewed. Denies chance of . Is not breast-feeding. 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 fluticasone (FLONASE) 50 mcg/actuation nasal spray Use 2 Sprays in each nostril once daily. Rinse mouth after use. OPZELURA 1.5 % cream apply thin layer to affected area twice a day topiramate (TOPAMAX) 50 mg tablet Take 50 mg by mouth once daily. hydrOXYzine HCl (ATARAX) 25 mg tablet Take 1 tablet by mouth twice daily. (Patient taking differently: Take 25 mg by mouth as needed for anxiety.) multivit [id number] 186 3.3 mg iron-25 mcg tab vitamin B complex (B COMPLEX 1 ORAL) fluticasone-salmeterol (ADVAIR DISKUS) 250-50 mcg/dose inhaler Inhale 1 Puff as instructed twice daily. Rinse and gargle mouth after use with water. lamoTRIgine (LAMICTAL) 150 mg tablet Take 1 tablet by mouth twice daily. (Patient taking differently: Take 200 mg by mouth two times a day.) FAMILY HISTORY Problem Relation Age of Onset Headache Mother other (depression) Mother of EtOH + Vicodin Social History Tobacco Use Smoking status: Former Types: Cigarettes Smokeless tobacco: Never Tobacco comments: 1.5/wk Substance Use Topics Alcohol use: Not Currently Alcohol/week: 4.0 standard drinks of alcohol Types: 4 Cans of Beer (12oz) per week Drug use: Yes Types: Marijuana Comment: medical BP 100/82 Pulse 74 Temp 37.1 ?C (98.7 ?F) (Left Tympanic) Resp 16 Wt 58.7 kg (129 lb 6.6 oz) LMP 07/18/2023 (Approximate) SpO2 99% BMI 21.30 kg/m? Review of Systems Constitutional: Negative for chills, fever and malaise/fatigue. HENT: Positive for congestion and sinus pain. Negative for ear discharge, ear pain and sore throat. Eyes: Negative for blurred vision, pain, discharge and redness. Respiratory: Positive for cough. Negative for hemoptysis, sputum production, shortness of breath, wheezing and stridor. Cardiovascular: Negative for chest pain. Gastrointestinal: Negative for abdominal pain, diarrhea, nausea and vomiting. Musculoskeletal: Negative for myalgias. Skin: Negative for itching and rash. Neurological: Negative for dizziness and headaches. Objective Physical Exam Constitutional: General: She is not in acute distress. Appearance: She is not diaphoretic. HENT: Head: Normocephalic. Jaw: No trismus, tenderness, swelling or pain on movement. Right Ear: Tympanic membrane, ear canal and external ear normal. Left Ear: Tympanic membrane, ear canal and external ear normal. Nose: Congestion present. Right Sinus: Maxillary sinus tenderness present. Left Sinus: Maxillary sinus tenderness present. Mouth/Throat: Mouth: Mucous membranes are moist. Pharynx: Oropharynx is clear. Uvula midline. No pharyngeal swelling, oropharyngeal exudate, posterior oropharyngeal erythema or uvula swelling. Eyes: Conjunctiva/sclera: Conjunctivae normal. Pupils: Pupils are equal, round, and reactive to light. Cardiovascular: Rate and Rhythm: Normal rate and regular rhythm. Heart sounds: Normal heart sounds. Pulmonary: Effort: Pulmonary effort is normal. No tachypnea, accessory muscle usage or respiratory distress. Breath sounds: Normal breath sounds. No stridor. No wheezing, rhonchi or rales. Abdominal: General: There is no distension. Palpations: Abdomen is soft. Tenderness: There is no abdominal tenderness. There is no guarding or rebound. Musculoskeletal: Cervical back: Normal range of motion and neck supple. No edema, erythema, rigidity or tenderness. No pain with movement (more content not included)... [facility] 11-28-2023 History of Present illness Narrative Subjective HPI Nontoxic-appearing female presents urgent care chief complaint sinus pressure drainage and cough. Duration of symptoms 10 days. Associated symptoms listed above. Initially started with fever body aches chills and flulike symptoms. This did improve. Most prominent symptom today is sinus pressure. OTC medications little to no success. History of sinus factions this is similar. Denies any fever body aches chills productive cough chest pain shortness of breath pleuritic pain hemoptysis nausea vomiting abdominal pain change in bowel or bladder habits. Past medical history prescription medication use and allergies reviewed. Denies chance of . Is not breast-feeding. .Patient presents with: Cough: With drainage & congestion x 10 days PAST MEDICAL HISTORY Diagnosis Date Acute glomerulonephritis with unspecified pathological lesion in kidney 1998 post strep glomerulonephritis Major depressive disorder, recurrent episode, unspecified Unspecified asthma(493.90) PAST SURGICAL HISTORY Procedure Laterality Date SECTION HX D AND C PAST SURGICAL HISTORY OF Left ankle surgery x 2 TONSILLECTOMY HX ALLERGIES Animal Dander and Prednisone MEDICATIONS albuterol HFA (VENTOLIN HFA) 90 mcg/actuation inhaler Inhale 2 Puffs as instructed every 4 hours as needed for wheezing/shortness of breath. fluticasone (FLONASE) 50 mcg/actuation nasal spray Use 2 Sprays in each nostril once daily. Rinse mouth after use. OPZELURA 1.5 % cream apply thin layer to affected area twice a day topiramate (TOPAMAX) 50 mg tablet Take 50 mg by mouth once daily. hydrOXYzine HCl (ATARAX) 25 mg tablet Take 1 tablet by mouth twice daily. (Patient taking differently: Take 25 mg by mouth as needed for anxiety.) multivit [id number] 186 3.3 mg iron-25 mcg tab vitamin B complex (B COMPLEX 1 ORAL) fluticasone-salmeterol (ADVAIR DISKUS) 250-50 mcg/dose inhaler Inhale 1 Puff as instructed twice daily. Rinse and gargle mouth after use with water. lamoTRIgine (LAMICTAL) 150 mg tablet Take 1 tablet by mouth twice daily. (Patient taking differently: Take 200 mg by mouth two times a day.) FAMILY HISTORY Problem Relation Age of Onset Headache Mother other (depression) Mother of EtOH + Vicodin Social History Tobacco Use Smoking status: Former Types: Cigarettes Smokeless tobacco: Never Tobacco comments: 1.5/wk Substance Use Topics Alcohol use: Not Currently Alcohol/week: 4.0 standard drinks of alcohol Types: 4 Cans of Beer (12oz) per week Drug use: Yes Types: Marijuana Comment: medical BP 100/82 Pulse 74 Temp 37.1 C (98.7 F) (Left Tympanic) Resp 16 Wt 58.7 kg (129 lb 6.6 oz) LMP 07/18/2023 (Approximate) SpO2 99% BMI 21.30 kg/m Review of Systems Constitutional: Negative for chills, fever and malaise/fatigue. HENT: Positive for congestion and sinus pain. Negative for ear discharge, ear pain and sore throat. Eyes: Negative for blurred vision, pain, discharge and redness. Respiratory: Positive for cough. Negative for hemoptysis, sputum production, shortness of breath, wheezing and stridor. Cardiovascular: Negative for chest pain. Gastrointestinal: Negative for abdominal pain, diarrhea, nausea and vomiting. Musculoskeletal: Negative for myalgias. Skin: Negative for itching and rash. Neurological: Negative for dizziness and headaches. Objective Physical Exam Constitutional: General: She is not in acute distress. Appearance: She is not diaphoretic. HENT: Head: Normocephalic. Jaw: No trismus, tenderness, swelling or pain on movement. Right Ear: Tympanic membrane, ear canal and external ear normal. Left Ear: Tympanic membrane, ear canal and external ear normal. Nose: Congestion present. Right Sinus: Maxillary sinus tenderness present. Left Sinus: Maxillary sinus tenderness present. Mouth/Throat: Mouth: Mucous membranes are moist. Pharynx: Oropharynx is clear. Uvula midline. No pharyngeal swelling, oropharyngeal exudate, posterior oropharyngeal erythema or uvula swelling. Eyes: Conjunctiva/sclera: Conjunctivae normal. Pupils: Pupils are equal, round, and reactive to light. Cardiovascular: Rate and Rhythm: Normal rate and regular rhythm. Heart sounds: Normal heart sounds. Pulmonary: Effort: Pulmonary effort is normal. No tachypnea, accessory muscle usage or respiratory distress. Breath sounds: Normal breath sounds. No stridor. No wheezing, rhonchi or rales. Abdominal: General: There is no distension. Palpations: Abdomen is soft. Tenderness: There is no abdominal tenderness. There is no guarding or rebound. Musculoskeletal: Cervical back: Normal range of motion and neck supple. No edema, erythema, rigidity or tenderness. No pain with movement. Normal range of motion. Lymphadenopathy: Cervical: No cervical adenopathy. Skin: General: Skin is warm and dry. Neurological: Mental Status: She is alert and oriented to person, place, and time. ASSESSMENT/PLAN: 1. Bacterial sinusitis - ICD9: 473.9, 041.9, ICD10: J32.9, B96.89 Diagnosed with bacterial sinusitis. Placed on doxycycline. Follow-up with PCP 3 to 4 days symptoms do not improve. Patient was educated on supportive therapies. Patient was instructed to immediately proceed to emergency room for any new, worsening, or symptoms lasting longer than anticipated. The patient's clinical presentation is otherwise unremarkable at this time. Based on exam and clinical finding, the patient is stable for discharge. Plan of care was discussed with patient. Patient verbalizes understanding and agrees to plan of care. This note was generated using LeadFire software. It may contain errors in wording, punctuation, or spelling. Andre Ramon APRN.HOSE BUILDER documented in this encounter [facility] 08-03-2023 Telephone encounter Note Pt. informed message left on VM. [facility] Work Phone: 08-03-2023 Miscellaneous Notes Pt. informed message left on VM. The following approved medication requests have been transmitted electronically. Requested Prescriptions Signed Prescriptions Disp Refills azithromycin (ZITHROMAX Z-JESSICA) 250 mg tablet 6 tablet 0 Sig: Take 2 tablets day one, then, 1 tablet daily until gone. Authorizing Provider: JEOVANY ARGUETA DO Pt calls back checking on status of message. 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 Pt is requesting to have zapk rx sent to pharmacy. Sole Tony LPN Patient calls and states that she has a cough and is coughing up green mucous. Advised patient that she needs to come into office or be seen in express care to be evaluated for this. Patient states that provider always has sent her in a z pack and is asking if provider can do this? Please review and advise, Taylor Redd RN documented in this encounter [facility] 08-02-2023 Telephone encounter Note The following approved medication requests have been transmitted electronically. Requested Prescriptions Signed Prescriptions Disp Refills azithromycin (ZITHROMAX Z-JESSICA) 250 mg tablet 6 tablet 0 Sig: Take 2 tablets day one, then, 1 tablet daily until gone. Authorizing Provider: JEOVANY ARGUETA DO [facility] 08-02-2023 History of Present illness Narrative This note was created using Wahandar[employer]. Bernard MAKI is a 38 year old female. HPI 38-year-old female presents for cough, nasal congestion, chest congestion for about a week. Patient states a week ago she started getting nasal congestion, sinus pressure and pain. She thought it might just be allergies. She states that is now settled down into her chest. She is coughing up phlegm and feels slightly short of breath. She does have history of asthma. She is on Advair and albuterol. She has been using her inhalers with some improvement. She does feel like her chest is tight and that she has had some wheezing. She states that anytime she gets something like this, she "needs a Z-Jessica". She does states she has had pneumonia in the past. She has not had any fevers. No chest pain. No other complaint. PAST MEDICAL HISTORY Diagnosis Date Acute glomerulonephritis with unspecified pathological lesion in kidney 1998 post strep glomerulonephritis Major depressive disorder, recurrent episode, unspecified Unspecified asthma(493.90) PAST SURGICAL HISTORY Procedure Laterality Date SECTION HX D AND C PAST SURGICAL HISTORY OF Left ankle surgery x 2 TONSILLECTOMY HX ALLERGIES Animal Dander and Prednisone MEDICATIONS albuterol HFA (VENTOLIN HFA) 90 mcg/actuation inhaler Inhale 2 Puffs as instructed every 4 hours as needed for wheezing/shortness of breath. fluticasone (FLONASE) 50 mcg/actuation nasal spray Use 2 Sprays in each nostril once daily. Rinse mouth after use. OPZELURA 1.5 % cream apply thin layer to affected area twice a day fluticasone-salmeterol (ADVAIR DISKUS) 250-50 mcg/dose inhaler Inhale 1 Puff as instructed twice daily. Rinse and gargle mouth after use with water. topiramate (TOPAMAX) 50 mg tablet Take 50 mg by mouth once daily. lamoTRIgine (LAMICTAL) 150 mg tablet Take 1 tablet by mouth twice daily. (Patient taking differently: Take 200 mg by mouth two times a day.) hydrOXYzine HCl (ATARAX) 25 mg tablet Take 1 tablet by mouth twice daily. (Patient taking differently: Take 25 mg by mouth as needed for anxiety.) multivit [id number] 186 3.3 mg iron-25 mcg tab vitamin B complex (B COMPLEX 1 ORAL) doxycycline (VIBRA-TABS) 100 mg tablet Take 1 tablet by mouth two times a day for 7 days. FAMILY HISTORY Problem Relation Age of Onset Headache Mother other (depression) Mother of EtOH + Vicodin Social History Tobacco Use Smoking status: Former Types: Cigarettes Smokeless tobacco: Never Tobacco comments: 1.5/wk Substance Use Topics Alcohol use: Not Currently Alcohol/week: 4.0 standard drinks of alcohol Types: 4 Cans of Beer (12oz) per week Drug use: Yes Types: Marijuana Comment: medical Review of Systems Constitutional: Negative for chills and fever. HENT: Positive for congestion, sinus pressure and sinus pain. Negative for ear pain and sore throat. Respiratory: Positive for cough, shortness of breath and wheezing. Cardiovascular: Negative for chest pain. Gastrointestinal: Negative for diarrhea and vomiting. Objective BP 145/88 Pulse 76 Temp 36.9 C (98.5 F) Resp 20 Wt 58 kg (127 lb 13.9 oz) LMP 07/18/2023 (Approximate) SpO2 100% BMI 21.05 kg/m Physical Exam Vitals and nursing note reviewed. Constitutional: General: She is not in acute distress. Appearance: Normal appearance. She is not toxic-appearing. HENT: Right Ear: Tympanic membrane and ear canal normal. Left Ear: Tympanic membrane and ear canal normal. Nose: Mucosal edema and congestion present. Right Sinus: Maxillary sinus tenderness and frontal sinus tenderness present. Left Sinus: Maxillary sinus tenderness and frontal sinus tenderness present. Mouth/Throat: Mouth: Mucous membranes are moist. Pharynx: No oropharyngeal exudate or posterior oropharyngeal erythema. Eyes: Conjunctiva/sclera: Conjunctivae normal. Cardiovascular: Rate and Rhythm: Normal rate and regular rhythm. Pulmonary: Effort: Pulmonary effort is normal. Breath sounds: Normal breath sounds. No wheezing, rhonchi or rales. Neurological: Mental Status: She is alert. Assessment and Plan ASSESSMENT/PLAN: 1. Sinobronchitis - ICD9: 473.9, 490, ICD10: J32.9, J40 -Patient did request a Z-Jessica as this has helped her in the past, and she states that she needs it to "prevent from getting pneumonia". -Did advise patient that azithromycin would not prevent pneumonia, and would not be my first choice for her suspected sinusitis. It is not first or second line treatment. Also, discussed that it can have heart arrhythmia side effects. -I did offer CXR to rule out pneumonia at this time, although patient's lungs are clear and I have low suspicion at this point. She declines. - Recommended doxycycline for sinobronchitis. Discussed this is a better choice than azithromycin at this point, however since azithromycin has helped patient in the past, did shared medical decision making with her. She is agreeable to doxycycline. - Will begin treatment with Doxycycline - Supportive care with plenty of fluids, rest, and analgesia prn. -Continue inhalers. -Follow-up with PCP if no improvement. Diagnosis and treatment plan were discussed and questions were answered to the patient's satisfaction. Pt acknowledged understanding of concepts and follow up plan. Specific signs and symptoms that would indicate the need for higher level of care were discussed in detail warranting prompt ER evaluation. RONNELL Gorman documented in this encounter [facility] 08-02-2023 Telephone encounter Note Pt calls back checking on status of message. 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 Pt is requesting to have zapk rx sent to pharmacy. Sole Tony LPN [facility] 08-02-2023 Telephone encounter Note Patient calls and states that she has a cough and is coughing up green mucous. Advised patient that she needs to come into office or be seen in express care to be evaluated for this. Patient states that provider always has sent her in a z pack and is asking if provider can do this? Please review and advise, Taylor Redd RN [facility] 06-07-2023 History of Present illness Narrative Chief Complaint Patient presents with: Sinus Problem: Yellow/green sinus drainage x 2 weeks Ear Problem: Bilateral ear pain Chest Congestion: Patient reports she feels like its moving into her chest- patient has asthma and she reports this is common on how it progresses for her. HPI Heron MAKI is a 38 year old female who presents here today for Above Complaints.. Patient complaining of nasal congestion for about 2 weeks with yellow/green drainage, sinus pain/pressure, and right ear pain. Also reports productive cough with yellow/green sputum associated with SOB on exertion and wheezing. Has been using her Advair once per day instead of BID. Was taking dayquil and nyquil last week, but not since. 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 No known exposure to COVID or flu. Has not tested for COVID at home. Denies fever/chills, loss of taste/smell, nausea, vomiting, diarrhea. Past medical history, appointments, medications, allergies reviewed. Previous Medical History PAST MEDICAL HISTORY Diagnosis Date Acute glomerulonephritis with unspecified pathological lesion in kidney 1998 post strep glomerulonephritis Major depressive disorder, recurrent episode, unspecified Unspecified asthma(493.90) Previous Surgical History PAST SURGICAL HISTORY Procedure Laterality Date SECTION HX D AND C PAST SURGICAL HISTORY OF Left ankle surgery x 2 TONSILLECTOMY HX Family History FAMILY HISTORY Problem Relation Age of Onset Headache Mother other (depression) Mother of EtOH + Vicodin Patient Allergies ALLERGIES Allergen Reactions Animal Dander Prednisone Hives, Rash, Swelling Current Medications Current Outpatient Medications on File Prior to Visit Medication Sig OPZELURA 1.5 % cream apply thin layer to affected area twice a day topiramate (TOPAMAX) 50 mg tablet Take 50 mg by mouth once daily. hydrOXYzine HCl (ATARAX) 25 mg tablet Take 1 tablet by mouth twice daily. multivit [id number] 186 3.3 mg iron-25 mcg tab vitamin B complex (B COMPLEX 1 ORAL) fluticasone-salmeterol (ADVAIR DISKUS) 250-50 mcg/dose inhaler Inhale 1 Puff as instructed twice daily. Rinse and gargle mouth after use with water. lamoTRIgine (LAMICTAL) 150 mg tablet Take 1 tablet by mouth twice daily. (Patient taking differently: Take 200 mg by mouth twice daily.) No current facility-administered medications on file prior to visit. Social History Social History Tobacco Use Smoking status: Former Types: Cigarettes Smokeless tobacco: Never Tobacco comments: 1.5/wk Substance Use Topics Alcohol use: Not Currently Alcohol/week: 4.0 standard drinks of alcohol Types: 4 Cans of Beer (12oz) per week Drug use: Yes Types: Marijuana Comment: medical Review of Symptoms REVIEW OF SYSTEMS See HPI EXAM: BP 116/78 Pulse 64 Temp 36.2 C (97.1 F) Resp 16 Wt 60 kg (132 lb 3.2 oz) LMP 07/26/2022 (Exact Date) SpO2 99% BMI 21.76 kg/m General Appearance: Well appearing, alert, in no acute distress, well-hydrated, well nourished.. Skin: Skin color, texture, turgor normal, no suspicious rashes or lesions. Head: Normocephalic, no masses, lesions, tenderness or abnormalities. Eyes: Anicteric sclera. Pupils are equally round and reactive to light. Extraocular movements are intact. . Ears: External ears normal, canals clear. Nose/Sinuses: Positive findings: mucosa erythematous and swollen, TTP over frontal and maxillary sinuses. Oropharynx: Lips, mucosa, and tongue normal, teeth and gums normal, oropharynx normal. Neck: Supple, no adenopathy; thyroid symmetric, normal size, no bruits. Lungs: Lungs clear to auscultation. No wheezing, rhonchi, rales.. Heart: RRR without murmur, gallop, or rubs. No ectopy. Health Maintenance List HPV Vaccine(3 - 3-dose series) due on 07/27/2007 DTaP,Tdap,Td Vaccine(7 - Td or Tdap) due on 10/25/2019 Influenza Vaccine(1) Never done Covid-19 Vaccine( season) Never done Pap Testing due on 05/21/2025 HPV Testing due on 05/21/2025 Hepatitis B Vaccine Completed Hepatitis C Screening Completed HIV Screening Completed ASSESSMENT/PLAN: 1. Bacterial sinusitis - ICD9: 473.9, 041.9, ICD10: J32.9, B96.89 - Will begin treatment with Augmentin 875 mg PO BID for 10 days - Supportive care with plenty of fluids, rest, and analgesia prn. - Follow up in one week if symptoms persist or worsen. - AMOXICILLIN 875 MG-POTASSIUM CLAVULANATE 125 MG TABLET Tayo Nguyen MD documented in this encounter [facility] 01-20-2023 History of Present illness Narrative VIRTUAL VISIT PROGRESS NOTE This is a virtual visit using [employer] Zoom Video Visit. It required patient-provider interaction for the medical decision making as documented below. I have communicated my name and active licensure. The patient's identity and physical location were verified at the time of this visit. Either the patient or their legal compliance representative has been informed of the risks and benefits of -- and alternatives to -- treatment through a remote evaluation and consents to proceed with the evaluation remotely. Heron MAKI is a 38 year old female seen for URI sx. 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 Started with sx 2 days ago. Has asthma and feels sx in her chest-is prone to pneumonia and bronchitis. +body aches. Negative home COVID test. Lots of thick green mucus with cough, nasally as well. HISTORY REVIEWED (electronic chart updated): PAST MEDICAL HISTORY Diagnosis Date Acute glomerulonephritis with unspecified pathological lesion in kidney 1998 post strep glomerulonephritis Major depressive disorder, recurrent episode, unspecified Unspecified asthma(493.90) PAST SURGICAL HISTORY Procedure Laterality Date SECTION HX D AND C PAST SURGICAL HISTORY OF Left ankle surgery x 2 TONSILLECTOMY HX FAMILY HISTORY Problem Relation Age of Onset Headache Mother other (depression) Mother of EtOH + Vicodin Social History Tobacco Use Smoking status: Former Types: Cigarettes Smokeless tobacco: Never Tobacco comments: 1.5/wk Substance Use Topics Alcohol use: Not Currently Alcohol/week: 10.0 standard drinks of alcohol Types: 4 Cans of Beer (12oz) per week Drug use: Yes Types: Marijuana Comment: medical Current Outpatient Medications Medication Sig OPZELURA 1.5 % cream apply thin layer to affected area twice a day fluticasone-salmeterol (ADVAIR DISKUS) 250-50 mcg/dose inhaler Inhale 1 Puff as instructed twice daily. Rinse and gargle mouth after use with water. topiramate (TOPAMAX) 50 mg tablet Take 50 mg by mouth twice daily. lamoTRIgine (LAMICTAL) 150 mg tablet Take 1 tablet by mouth twice daily. (Patient taking differently: Take 200 mg by mouth twice daily.) hydrOXYzine HCl (ATARAX) 25 mg tablet Take 1 tablet by mouth twice daily. multivit [id number] 186 3.3 mg iron-25 mcg tab vitamin B complex (B COMPLEX 1 ORAL) No current facility-administered medications for this visit. ALLERGIES Allergen Reactions Animal Dander Prednisone Hives, Rash, Swelling REVIEW OF SYSTEMS: All other ROS: negative As noted in HPI PHYSICAL EXAMINATION: VIDEO EXAM: (if completed, performed via video enabled technology) GENERAL: appears tired, coughs occasionally, and appears ill, no acute distress, sounds congested Psychiatric; pleasant, cooperative ASSESSMENT: (J06.9) URI, acute (primary encounter diagnosis) PLAN: Zpak per patient request. Supportive care. Will call back to office if need cough medication-ok for Tessalon Perles and/or Codeine cough syrup as discussed with patient. Does not need additional appt for this. Vale Bullard APRN.CNP documented in this encounter [facility] 09-08-2022 Miscellaneous Notes Called pt gave information provided. Pt states still has rash in various areas but it seems to be lessening and going away. Will keep an eye on it and if it starts to worsen will call and make appointment. Sent [employer] message to pt to get update on rash. Farnaz Dang Ma Please get an update from patient on this rash as this is an old message. Vale Bullard APRN.CNP documented in this encounter [facility] 07-07-2022 Miscellaneous Notes Note is not completed. Autumn Millard Please let Heron know we received her lab results. Vale Bullard APRN.LEIGH documented in this encounter [facility] 07-06-2022 Miscellaneous Notes PATIENT NOTIFIED OF INFORMATION Message left to return call. Please inform patient that a lot of these labs may be related to post operative time period and the stress on her body from her recent surgery as well as the anesthesia. Recommend recheck of thyroid labs and lipids and LFTs labs in 1 month as ordered. Keep tylenol total to 2000 mg a day or less Jeovany Argueta DO Patient calls and is concerned about her lab results. Patient just recently had her appendix removed as well as some of her colon on 06/26/2022. For 10 days after surgery patient was taking Tylenol Arthritis every 6 hours for the pain. She was alternating medication with motrin and OxyContin. Patient calls today concerned that her AST and ALT levels are elevated: Component Latest Ref Rng & Units 07/05/2022 AST 13 - 35 U/L 53 (H) Component Latest Ref Rng & Units 07/05/2022 ALT 7 - 38 U/L 83 (H) Patient reports that she does not drink any alcohol and asking if labs can be elevated due to surgery? Patient also concerned about elevated cholesterol levels as well as elevated TSH. Please review and advise, Taylor Redd RN documented in this encounter [facility] 07-05-2022 Miscellaneous Notes Caron from [facility] lab states pt is there for a lab draw & she has no lab orders. Orders from 06/25/22 were faxed to her at [phone]. Janki Walsh LPN documented in this encounter [facility] 06-26-2022 Discharge summary Note Date/Time June 26, 2022 1:40am [facility] Medical Records Department [address] [place] [address] Emergency Department Summary 06/26/22 MR#: [id number] Acct: [id number] Name: HERON MAKI Rep # :[id number] : 1985 37 From: Neil Dunne DO PCP: Dr. Jeovany Argueta DO Status:AD M [facility] Location: [address] History of Present Illness Chief Complaint: Abd Pain Narrative Narrative: Patient is a 37-year-old female with past medical history of anxiety depression and migraine headache. She states that today around lunchtime she noted that she was developing generalized abdominal discomfort. She states as time passed the pain became more intense and migrated to her right lower quadrant and she developed bouts of nausea and loose stool/diarrhea. She states this evening thepain is so severe that she has concern for possible infection and with this comes in for evaluation. Patient denies any history of intestinal disorder suchas ulcerative colitis or Crohn's disease. She denies any known sick contacts. She denies any previous abdominal surgery [facility] Medical History (Updated 06/26/22 @ 08:[address] Neil Dunne DO) Alcohol abuse Anxiety Anxiety and depression Asthma Back pain due to injury Depression Former smoker History of steroid therapy Injury of head and neck Migraines Substance abuse Home Medications cyanocobalamin (vitamin B-12) 500 mcg tablet 500 mcg PO DAILY@0800 REPLACEMENT 01/18/13 [History Last Taken 01/18/13] hydroxyzine HCl 10 mg tablet 10 mg PO TID PRN Anxiety 12/27/19 [History Last Taken Unknown] multivitamin with minerals (Hair,Skin and Nails tablet) 1 tab PO DAILY 12/27/19 [History Last Taken Unknown] lamotrigine 200 mg tablet (Lamictal) 200 mg PO BID 05/01/20 [History Last Taken Unknown] topiramate 25 mg tablet 25 mg PO QHS 06/25/22 [History Last Taken Unknown] Allergy/AdvReac Type Severity Reaction Status Date / Time prednisone AdvReac Swelling Verified 06/25/22 21:55 Family History Grandfather Cancer prostate Grandmother Cancer skin Brother Asthma Surgical History ankle surgery delivery delivered H/O dilation and curettage History of tonsillectomy and adenoidectomy S/P breast biopsy, left Social History Smoking Status: Former smoker alcohol intake: never substance use type: does not use caffeine: Yes frequency: 5-6 times per week seatbelt use: always do you feel safe at home: Yes additional social history: [employer]- [employer] ROS ROS ED Constitutional Constitutional ED: Denies chills or fever(s) ENT ENT ED: Denies sore throat Cardiovascular Cardiovascular: Denies chest pain Respiratory/Chest Respiratory/Chest: Denies cough or dyspnea Gastrointestinal Gastrointestinal: Reports abdominal pain, diarrhea and nausea; Denies vomiting Genitourinary Genitourinary ED: Denies dysuria or hematuria Musculoskeletal Musculoskeletal: Denies myalgias Integumentary Denies rash Neurologic Neurologic: Denies weakness Hematologic/Lymphatic Hematologic/Lymphatic: Denies easy bleeding or easy bruising EXAM Physical Exam Const Vital Signs: 06/25/22 21:56 Temperature 97.9 F Temperature Source Temporal Pulse Rate 68 Respiratory Rate 16 Blood Pressure 122/72 H Blood Pressure Mean 88 Pulse Ox 100 Oxygen Delivery Method Room Air Positive well nourished and well developed General Appearance ED: well developed HEENT Reports moist mucous membranes Eyes PERRL and EOMs intact bilaterally General Eye ED: Negative for scleral icterus Neck supple Resp normal respiratory effort and clear to auscultation bilaterally Cardio regular rate and regular rhythm Rate: other Other Details: Radial pulses are plus 2 out of 4 bilaterally are equal and symmetric GI non-distended GI Narrative: Abdomen is soft and nondistended with normal active bowel sounds. However patient does have voluntary guarding with rebound tenderness in the right lower quadrant. Positive heel strike psoas and obturator signs as well. No pulsatilemass or fluid wave Auscultation: normoactive bowel sounds Palpation: soft Back/Spine Back/Spine Narrative: Mild right CVA pain noted Extremity normal to inspection Neuro oriented x3 and CN's II-XII intact bilaterally Sensorium / Orientation: alert Psych mental status grossly normal Skin no rashes or lesions noted General Skin Exam: Negative for jaundice MDM MDM MDM Narrative Medical decision making narrative: Patient presented to the ER afebrile and normotensive but had generalized abdominal pain that progressed to the right lower quadrant with bouts of loose stool concerning for acute appendicitis. With this she also had rigidity and guarding further indicating intestinal pathology. There is concern that this could be a possible intestinal infection versus incarcerated hernia versus ovarian pathology such as ovarian cyst or torsion or bladder dysfunction such askidney stone pyelonephritis or UTI. With this differential basic blood work essence urine sample were obtained and patient was sent to CT scan for a further evaluation of her abdominal pain. Labs showed leukocytosis but otherwise no clinically significant finding. CT scan showed a dilated appendix concerning for acute appendicitis secondary to mucocele. Secondary to this finding [facility] was contacted. They evaluated the patient in the ER and recommended admission to their service for patient to undergo appendectomy later this morning. Plan of care was discussed with the patient she is agreeable to it andwas started on Zosyn secondary to the infectious process. History & Record Review Discussion w/independent historian: Patient and Family Lab Data Attestation: I reviewed the patient's lab results. Labs: Laboratory Results - last 24 hr 06/25/22 06/25/22 06/25/22 22:20 22:20 22:20 WBC 15.4 H RBC 4.60 Hgb 13.6 Hct 40.6 MCV 88.3 MCH 29.6 MCHC 33.5 RDW Std Deviation 41.8 RDW Coeff of Felicitas 13.0 Plt Count 386 MPV 10.1 Immature Gran % (Auto) 0.300 Neut % (Auto) 81.7 H Lymph % (Auto) 13.2 L Kaufman % (Auto) 4.0 Eos % (Auto) 0.5 Baso % (Auto) 0.3 Absolute Neuts (auto) 12.6 H Absolute Lymphs (auto) 2.03 Nucleated RBC % 0 Sodium 137 Potassium 3.3 L Chloride 105 Carbon Dioxide 25.0 Anion Gap 7 BUN 8 Creatinine 0.89 Estim Creat Clear Calc 76.19 Est GFR (MDRD) Af Amer 93 Est GFR (MDRD) Non-Af 76 BUN/Creatinine Ratio 9.0 L Glucose 121 H Lactic Acid Calcium 9.7 Total Bilirubin 0.50 Direct Bilirubin 0.16 AST 18 ALT 25 Alkaline Phosphatase 42 L Total Protein 7.4 Albumin 4.5 Globulin 2.9 Lipase 38 Urine Color Urine Clarity Urine pH Ur Specific [place] Urine Protein Urine Glucose (UA) Urine Ketones Urine Occult Blood Urine Nitrite Urine Bilirubin Urine Urobilinogen Ur Leukocyte Esterase Urine RBC Urine WBC Ur Squamous Epith Cells Urine Bacteria Urine Mucus Urine Test 06/25/22 06/25/22 22:20 22:54 WBC RBC Hgb Hct MCV MCH MCHC RDW Std Deviation RDW Coeff of Felicitas Plt Count MPV Immature Gran % (Auto) Neut % (Auto) Lymph % (Auto) Kaufman % (Auto) Eos % (Auto) Baso % (Auto) Absolute Neuts (auto) Absolute Lymphs (auto) Nucleated RBC % Sodium Potassium Chloride Carbon Dioxide Anion Gap BUN Creatinine Estim Creat Clear Calc Est GFR (MDRD) Af Amer Est GFR (MDRD) Non-Af BUN/Creatinine Ratio Glucose Lactic Acid 1.6 Calcium Total Bilirubin Direct Bilirubin AST ALT Alkaline Phosphatase Total Protein Albumin Globulin Lipase Urine Color Yellow Urine Clarity Clear Urine pH 9.0 Ur Specific [place] 1.020 Urine Protein Negative Urine Glucose (UA) Normal Urine Ketones 5 H Urine Occult Blood Negative Urine Nitrite Negative Urine Bilirubin Negative Urine Urobilinogen Normal Ur Leukocyte Esterase Negative Urine RBC 0 SEEN Urine WBC 0 SEEN Ur Squamous Epith Cells 0-5 SEEN Urine Bacteria 1+ Urine Mucus 0 SEEN Urine Test Negative Radiography Diagnostic Testing: Clinical Impression(s) from Imaging Studies Abdomen/Pelvis CT 06/25/22 22:17 IMPRESSION: Abnormal appendix which is very distended with mural calcifications in the proximal lumen. 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 N.B. : The above Results were Read Back by Clarke Moffett MD to Neil Dunne DO, and understanding confirmed on 06/25/2022 23:38:57 (ET). Electronically Signed: Clarke Moffett MD at 23:44 EDT , ADDENDUM: 06/25/22 2351 IMPRESSION: Abnormal appendix which is very distended with mural calcifications in the proximal lumen. 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 N.B. : The above Results were Read Back by Clarke Moffett MD to Neil Dunne DO, and understanding confirmed on 06/25/2022 23:38:57 (ET). Electronically Signed: Clarke Moffett MD at 23:44 EDT , Management Discussion w/another healthcare provider: Carpenter Supervisor Discharge Plan Dx/Rx/DC Orders Clinical Impression: Acute appendicitis, Mucocele of appendix, History of migraine headaches Disposition Disposition: Acute Care Hospital [facility] Discharge Date/Time: 06/26/22 02:24 What to do if you have Problems For any increased pain, shortness of breath, bleeding, nausea or vomiting, chestpain, or any unexpected problems, contact your Primary Care Provider. Call [facility] ([phone]) or report to the closest Emergency Room. Call 911 if necessary. 06/26/22 0826 <Electronically signed by Neil Dunne DO> Cosigner Signature (if applicable): CC: Dr. Jeovany Argueta DO ~ Signed [facility] Work Phone: 1(632) 691-493904-15-2023 History and physical note Author Dr. Mendoza [facility] June 26, 2022 2:00am Note Date/Time June 26, 2022 2:0 0am [facility] Medical Records Department [address] [place] [address] History & Physical Exam 06/26/22 0148 MR#: [id number] Acct: [id number] Name: HERON MAKI Rep # :[id number] : 1985 37 From: Clarke Barahona PCP: Dr. Jeovany Argueta DO Status:ARMANDO PEDRAZA Location: AL3 [id number] HPI - General General Date of Service: 06/26/22 Chief Complaint: Acute onset right lower quadrant abdominal pain HPI Narrative HERON MAKI, is a 37 F who presents to [facility] with complaints of acute onset right lower quadrant abdominal pain that began yesterday and has been associated with some loose stools. Patient notes some associated chills as well. She notes that her loose stools have preceded the pain by a couple of weeks and confirms some subjective weight loss (she reports that her clothing is fitting baggy, but states that she does not routinely weighherself). ER work-up is notable for CBC that demonstrates a leukocytosis of over 15,[address] imaging concerning for appendiceal mucocele given dilation of the appendix of up to 1.8 cm. Radiology also notes some mural calcifications. Patient states that she normally enjoys a active lifestyle and is relatively healthy at baseline. Her only medications are taken for some mental health diagnoses. Surgically, patient has a history of excisional breast biopsy as well as a D&C and . Patient denies any awareness of any familial cancer history. She admits, however, that she is estranged from her father and her mother is . [facility] Medical History (Updated 06/26/22 @ 01:[address] Clarke Mendoza MD) Anxiety and depression Home Medications cyanocobalamin (vitamin B-12) 500 mcg tablet 500 mcg PO DAILY@0800 01/18/13 [History Last Taken 01/18/13] hydroxyzine HCl 10 mg tablet 10 mg PO TID PRN Anxiety 12/27/19 [History Last Taken Unknown] multivitamin with minerals (Hair,Skin and Nails tablet) 1 tab PO DAILY 12/27/19 [History Last Taken Unknown] lamotrigine 200 mg tablet (Lamictal) 200 mg PO BID 05/01/20 [History Last Taken Unknown] topiramate 25 mg tablet 25 mg PO QHS 06/25/22 [History Last Taken Unknown] Allergy/AdvReac Type Severity Reaction Status Date / Time prednisone AdvReac Swelling Verified 06/25/22 21:55 Family History Grandfather Cancer prostate Grandmother Cancer skin Brother Asthma Surgical History ankle surgery delivery delivered H/O dilation and curettage History of tonsillectomy and adenoidectomy S/P breast biopsy, left Social History Smoking Status: Former smoker alcohol intake: never substance use type: does not use caffeine: Yes frequency: 5-6 times per week seatbelt use: always do you feel safe at home: Yes additional social history: [employer] Vital Signs Vital Signs Vital Signs: 06/25/22 21:56 06/26/22 01:42 06/26/22 01:43 Temperature 97.9 F 97.9 F Temperature Source Temporal Temporal Pulse Rate 68 62 62 Respiratory Rate 16 16 16 Blood Pressure 122/72 H 115/60 115/60 Blood Pressure Mean 88 78 78 Pulse Ox 100 100 100 Oxygen Delivery Method Room Air Room Air Room Air Weight Weight: 128 lb Body Mass Index (BMI) 21.9 Physical Exam Const alert and oriented x3 Constitutional Narrative: Anxious General Appearance: cooperative Resp normal respiratory effort GI GI Narrative: Slender, nondistended, no visible herniation. Soft and exquisitely tender to palpation over McBurney's point. Negative psoas and obturator signs Results Lab / Micro Data Result Diagrams: 06/25/22 22:20 06/25/22 22:20 Labs: Laboratory Results - last 24 hr 06/25/22 22:20: Total Bilirubin 0.50, Direct Bilirubin 0.16, AST 18, ALT 25, Alkaline Phosphatase 42 L, Total Protein 7.4, Albumin 4.5, Globulin 2.9 06/25/22 22:20: WBC 15.4 H, RBC 4.60, Hgb 13.6, Hct 40.6, MCV 88.3, MCH 29.6, MCHC 33.5, RDW Std Deviation 41.8, RDW Coeff of Felicitas 13.0, Plt Count 386, MPV 10.1, Immature Gran % (Auto) 0.300, Neut % (Auto) 81.7 H, Lymph % (Auto) 13.2 L,Kaufman % (Auto) 4.0, Eos % (Auto) 0.5, Baso % (Auto) 0.3, Absolute Neuts (auto) 12.6 H, Absolute Lymphs (auto) 2.03, Nucleated RBC % 0 06/25/22 22:20: Sodium 137, Potassium 3.3 L, Chloride 105, Carbon Dioxide 25.0, Anion Gap 7, BUN 8, Creatinine 0.89, Estim Creat Clear Calc 76.19, Est GFR (MDRD) Af Amer 93, Est GFR (MDRD) Non-Af 76, BUN/Creatinine Ratio 9.0 L, [id number] H, Calcium 9.7, Lipase 38 06/25/22 22:20: Urine Color Yellow, Urine Clarity Clear, Urine pH 9.0, Ur Specific [place] 1.020, Urine Protein Negative, Urine Glucose (UA) Normal, UrineKetones 5 H, Urine Occult Blood Negative, Urine Nitrite Negative, Urine Bilirubin Negative, Urine Urobilinogen Normal, Ur Leukocyte Esterase Negative, Urine RBC 0 SEEN, Urine WBC 0 SEEN, Ur Squamous Epith Cells 0-5 SEEN, Urine Bacteria 1+, Urine Mucus 0 SEEN, Urine Test Negative 06/25/22 22:54: Lactic Acid 1.6 Radiology Impression Abdomen/Pelvis CT 06/25/22 22:17 IMPRESSION: Abnormal appendix which is very distended with mural calcifications in the proximal lumen. 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 N.B. : The above Results were Read Back by Clarke Moffett MD to Neil Dunne DO, and understanding confirmed on 06/25/2022 23:38:57 (ET). Electronically Signed: Clarke Moffett MD at 23:44 EDT , ADDENDUM: 06/25/22 2351 IMPRESSION: Abnormal appendix which is very distended with mural calcifications in the proximal lumen. 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 N.B. : The above Results were Read Back by Clarke Moffett MD to Neil Dunne DO, and understanding confirmed on 06/25/2022 23:38:57 (ET). Electronically Signed: Clarke Moffett MD at 23:44 EDT , Assessment & Plan Assessment/Plan (1) Mucocele of appendix: (2) Acute appendicitis: PLAN: Plan Patient presenting with acute onset right lower quadrant pain and concern for acute appendicitis. While her limited pain experience and white count are further suggestive of this diagnosis, her reports of diarrhea, weight loss, and CT imaging suggesting more insidious process. Radiology read of CT is concerning for mucocele of the appendix. I have discussed with patient and her spouse ramifications of this reading and recommended operative intervention. I stated I would plan for a laparoscopic appendectomy, however, intraoperative findings could dictate a need towards open laparotomy if it appeared there is risk for perforation of the mucocele and possible need for more extensive surgery to include possible right hemicolectomy if findings suggested margins could not be obtained with an appendectomy alone and an oncologic resection was indicated. Patient and her spouse appear understandably overwhelmed, but reports their questions have been answered to their satisfaction and they would like to proceed as described. For now we will admit patient to the floor with plan as follows: ? N.p.o. for surgery ? Maintenance IV fluids ? As needed pain Rx ? Continue empiric antibiotics ? Consent for laparoscopic appendectomy with possible exploratory laparotomy, possibility ileocecectomy, possible right hemicolectomy, and other procedures as indicated Charges/Coding Visit Charges Inpatient E&M: 67855 Init Hosp L2 06/26/22 0200 <Electronically signed by Clarke Mendoza MD> Cosigner Signature (if applicable): CC: Dr. Jeovany Argueta DO; Dr. Clarke Mendoza MD~ Signed [facility] Work Phone: 1(477) 144-898304-14-2023 History of Present illness Narrative* Rachael Recinos, MIGUEL.HOSE BUILDER - 06/25/2022 7:11 AM EDT Chief Complaint Patient presents with: blood work request HPI Heron MAKI is a 37 year old female who presents here today for Above Complaints. Heron is an established patient of Dr. Kendall DO and myself. Concerns today... Per MCM: We had bloodwork done a few months back. I have been diagnosed with Vitiligo per the heading repairer.Part of the prognosis suggests that this can be associated with diabetes, thyroid disease or pernicious anemia. Did anything like this show up in the test results? -Thyroid labs done externally on 06/17/22. Thyroid peroxidase antibody, thyroglobulin, anti-TG AB, and PTH were all normal/negative. Currently in office today... Pt reports concern for autoimmune disorder after dx of vitiligo. Pt feels she has numerous symptomsthat are concerning for RA, anemia, and/or thyroid disease. Pt reports intolerance to cold, fatigue, weight loss, and generalized joint pain bilaterally to knees, wrists, and hands. No family hx of autoimmune disorders. Being treated with vitiligo by dermatology with jacques. Has not had routine blood work done by [facility] ever. ADHD --- Dx with ADD as a child. Was on adderall up until about 7 years ago. Pt admits to abusing adderall in the past due to taking more than prescribed because she felt like it wasn't working anymore and needed more to have the same effect. Has tried wellbutrin but this did not work for pt either, caused increased depression. Has been fine without any regimen x 7 years but pt feels symptoms are all returning and much worse. 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 Students have even mentioned that "she is all over the place recently" Past medical history, appointments, medications, allergies reviewed. Previous Medical History PAST MEDICAL HISTORY Diagnosis Date Acute glomerulonephritis with unspecified pathological lesion in kidney 1998 post strep glomerulonephritis Major depressive disorder, recurrent episode, unspecified Unspecified asthma(493.90) Previous Surgical History PAST SURGICAL HISTORY Procedure Laterality Date SECTION HX D AND C PAST SURGICAL HISTORY OF Left ankle surgery x 2 TONSILLECTOMY HX Family History FAMILY HISTORY Problem Relation Age of Onset Headache Mother other (depression) Mother of EtOH + Vicodin Patient Allergies ALLERGIES Allergen Reactions Animal Dander Prednisone Hives, Rash, Swelling Current Medications Current Outpatient Medications on File Prior to Visit Medication Sig fluticasone-salmeterol (ADVAIR DISKUS) 250-50 mcg/dose inhaler Inhale 1 Puff as instructed twice daily. Rinse and gargle mouth after use with water. topiramate (TOPAMAX) 50 mg tablet Take 50 mg by mouth twice daily. lamoTRIgine (LAMICTAL) 150 mg tablet Take 1 tablet by mouth twice daily. (Patient taking differently: Take 200 mg by mouth twice daily.) hydrOXYzine HCl (ATARAX) 25 mg tablet Take 1 tablet by mouth twice daily. multivit [id number] 186 3.3 mg iron-25 mcg tab vitamin B complex (B COMPLEX 1 ORAL) No current facility-administered medications on file prior to visit. Social History Social History Tobacco Use Smoking status: Former Types: Cigarettes Smokeless tobacco: Never Tobacco comments: 1.5/wk Substance Use Topics Alcohol use: Not Currently Alcohol/week: 10.0 standard drinks Types: 4 Cans of Beer (12oz) per week Drug use: Yes Types: Marijuana Comment: medical REVIEW OF SYSTEMS: as above Reviewed relevant PMHx, PSHx, Social Hx, current medications and allergies. Review of Symptoms REVIEW OF SYSTEMS See HPI. All other systems are negative. EXAM: BP 108/62 Pulse 70 Resp 14 Wt 58.6 kg (129 lb 3.2 oz) LMP 06/21/2022 (Exact Date) SpO2 99% BMI 21.27 kg/m General Appearance: Well appearing, alert, in no acute distress, well-hydrated, well nourished.. Skin: Skin color, texture, turgor normal, no suspicious rashes or lesions. Head: Normocephalic, no masses, lesions, tenderness or abnormalities. Neck: Supple, no adenopathy; thyroid symmetric, normal size, no bruits. Back:no pain to palpation of vertebrae, good flexion and extension, good range of motion, no muscletenderness, reflexes are 2+ and symmetric, motor and sensory appear to be normal, negative SLR test, no evidence of scoliosis Lungs: Lungs clear to auscultation. No wheezing, rhonchi, rales.. Heart: RRR without murmur, gallop, or rubs. No ectopy. Abdomen: Normal abdominal exam, Abdomen soft, non-tender. Bowel sounds normal. No masses, organomegaly. Extremities: No deformities, edema, skin discoloration, clubbing or cyanosis. Good capillary refill. . Musculoskeletal: No joint swelling, deformity, or tenderness. Peripheral Pulses: Normal. Neurologic: Gait normal. Reflexes normal and symmetric. Sensation grossly intact.. Health Maintenance List HEPATITIS B(1 of 3 - 3-dose series) Never done COVID-19 VACCINE(1) Never done HEPATITIS C SCREENING Never done HIV SCREENING Never done DTAP,TDAP,TD(1 - Tdap) Never done INFLUENZA(Season Ended) due on 11/12/2022 PAP TESTING due on 05/21/2025 HPV TESTING due on 05/21/2025 ASSESSMENT/PLAN: 1. Vitiligo - ICD9: 709.01, ICD10: L80 (primary diagnosis) Continue with treatment from Dermatology. Will screen for autoimmune disorders based on provided symptoms of concern. See below. 2. Concentration deficit - ICD9: 799.51, ICD10: R41.840 Hx of dx of ADHD. Without any medication regimen x 7 years. Gave ADHD screening test paperwork to go home with d/t pt in a bagley to get to work. RTO if patient wanting to seek further intervention for this again. Pt hx of abuse of adderall. No relief with wellbutrin. After looking at [facility] report, unable to prescribe controlled substances d/t marijuana use anyways. May consider Strattera regimen. 3. Intolerance to cold - ICD9: 780.99, ICD10: R68.89 Test for anemia or thyroid disorders. - TSH BLD - T3 BLD - T4 FREE/FREE THYROX - CBC + DIFF - IRON + TIBC - FERRITIN BLD 4. Generalized joint pain - ICD9: 719.40, ICD10: M25.50 Pt concern for RA or autoimmune arthritis. - SED RATE WESTERGREN - C-REACTIVE PROTEIN (CRP) - JOCY BLOOD - RHEUMATOID FACTOR BL 5. Fatigue, unspecified type - ICD9: 780.79, ICD10: R53.83 Rule out biological cause with blood work below. - TSH BLD - T3 BLD - T4 FREE/FREE THYROX - COMP METABOLIC PANEL - CBC + DIFF - VITAMIN B12 BLOOD - VITAMIN D 25 HYDROXY - IRON + TIBC - FERRITIN BLD 6. Screening for HIV (human immunodeficiency virus) - ICD9: V73.89, ICD10: Z11.4 - HIV 1 2 COMBO(AG/AB),WITH REFLEX TO DIFFERENTIATION 7. Special screening examination for viral disease - ICD9: V73.99, ICD10: Z11.59 - HEP C AB IA W/CONF SCRN 8. Screening for diabetes mellitus - ICD9: V77.1, ICD10: Z13.1 - HGB A1C 9. Screening for lipid disorders - ICD9: V77.91, ICD10: Z13.220 - LIPID PANEL BASIC RTO as needed if wanted to further discuss possible ADHD concerns. Prescription instructions reviewed with patient as applicable. Potential red flag symptoms discussed with the patient. Reviewed appropriate action plan to take if red flag symptoms occur. Patient agreeable to treatment plan. Rachael Roche APRN.HOSE BUILDER [address] [place] [address] [facility] Miscellaneous Notes* Telephone Encounter - RONY Doss - 02/25/2022 8:11 AM EST TC to patient who was able to fiber picker Z- pack from pharmacy. RONY Doss * Telephone Encounter - Rosa Hay RN - 02/24/2022 8:21 AM EST Called and left a voicemail for the Patient to call back and ask for a nurse to receive the providers message. Rosa Hay RN * Telephone Encounter - Jeovany Argueta DO - 02/23/2022 4:49 PM EST The following approved medication requests have been transmitted electronically. Requested Prescriptions Signed Prescriptions Disp Refills azithromycin (ZITHROMAX Z-JESSICA) 250 mg tablet 6 tablet 0 Sig: Take 2 tablets day one, then, 1 tablet daily until gone. Authorizing Provider: JEOVANY ARGUETA DO * Telephone Encounter - Ashley Nieves LPN - 02/23/2022 3:55 PM EST Pt called and states she would like to know if a Z-pack could be called in for her. She is concerned this is moving into her chest and starting to have a little problem breathing. She feels the Amoxicillin may not help. Please. Pt will take the Amoxicillin till she hears back. Pharmacy update. Sxs going on head very congested, ears still clogged and hurts, headache, coughing and wheezing. Ptstates she does have asthma and has had a z-pack in the past that takes care of this for her. Please advise pt. Ashley Nieves LPN documented in [facility] encounterR[facility]12-[facility]22 History of Present illness Narrative* Vale Bullard, MIGUEL.HOSE BUILDER - 02/22/2022 9:44 AM EST Chief Complaint Patient presents with: Sore Throat: Bilateral ear ache x 2 days HPI Heron MAKI is a 37 year old female who presents here today for Above Complaints.. Today: Sore throat and bilateral ear pain x2 days-happened overnight and woke up feeling this way. No cough-feels like she needs to cough but can't. No nasal drainage or PND. No fever but + body aches. Daughter was sick last week with a deep cough. Has taken Alkaseltzer cold & flu-hasn't been helpful. Past medical history, appointments, medications, allergies reviewed. Previous Medical History PAST MEDICAL HISTORY Diagnosis Date Acute glomerulonephritis with unspecified pathological lesion in kidney 1998 post strep glomerulonephritis Major depressive disorder, recurrent episode, unspecified Unspecified asthma(493.90) Previous Surgical History PAST SURGICAL HISTORY Procedure Laterality Date SECTION HX D AND C PAST SURGICAL HISTORY OF Left ankle surgery x 2 TONSILLECTOMY HX Family History FAMILY HISTORY Problem Relation Age of Onset Headache Mother other (depression) Mother of EtOH + Vicodin Patient Allergies ALLERGIES Allergen Reactions Animal Dander Prednisone Hives, Rash, Swelling Current Medications Current Outpatient Medications on File Prior to Visit Medication Sig fluticasone-salmeterol (ADVAIR DISKUS) 250-50 mcg/dose inhaler Inhale 1 Puff as instructed twice daily. Rinse and gargle mouth after use with water. topiramate (TOPAMAX) 50 mg tablet Take 50 mg by mouth twice daily. lamoTRIgine (LAMICTAL) 150 mg tablet Take 1 tablet by mouth twice daily. (Patient taking differently: Take 200 mg by mouth twice daily.) hydrOXYzine HCl (ATARAX) 25 mg tablet Take 1 tablet by mouth twice daily. multivit [id number] 186 3.3 mg iron-25 mcg tab vitamin B complex (B COMPLEX 1 ORAL) No current facility-administered medications on file prior to visit. Social History Social History Tobacco Use Smoking status: Former Types: Cigarettes Smokeless tobacco: Never Tobacco comments: 1.5/wk Substance Use Topics Alcohol use: Not Currently Alcohol/week: 10.0 standard drinks Types: 4 Cans of Beer (12oz) per week Drug use: Yes Types: Marijuana Comment: medical Review of Symptoms REVIEW OF SYSTEMS See HPI, otherwise negative EXAM: BP 108/62 (BP Site: Left Arm, BP Position: Sitting, BP Cuff Size: Regular Adult) Pulse 77 Temp 36.8 C (98.3 F) Resp 16 Wt 61.5 kg (135 lb 9.6 oz) LMP 03/31/2021 (Approximate) SpO2 99% BMI 22.32 kg/m General Appearance: ill-appearing, non-toxic, alert, in no acute distress, well- hydrated, well nourished. Head: Normocephalic, no masses, lesions, tenderness or abnormalities. Eyes: Anicteric sclera. Pupils are equally round and reactive to light. Extraocular movements are intact. . Ears: Positive findings: R TM: erythematous and bubbles present, L TM: erythematous and bubbles present. Nose/Sinuses: Nares normal, septum midline, mucosa normal, no drainage or sinus tenderness. Oropharynx: Lips, mucosa, and tongue normal, teeth and gums normal. Posterior pharynx with erythema, no exudate. Neck: Supple, no adenopathy; thyroid symmetric, normal size, no bruits. Left submandibular lymphadenopathy Lungs: Lungs clear to auscultation. No wheezing, rhonchi, rales.. Heart: RRR without murmur, gallop, or rubs. No ectopy. Health Maintenance List HEPATITIS B(1 of 3 - 3-dose series) Never done HEPATITIS C SCREENING Never done HIV SCREENING Never done DTAP,TDAP,TD(1 - Tdap) Never done COVID-19 VACCINE(1) due on 05/12/2022 INFLUENZA(1) due on 09/10/2022 PAP TESTING due on 05/21/2025 HPV TESTING due on 05/21/2025 Data reviewed Previous records, office notes ASSESSMENT/PLAN: 1. Sore throat - ICD9: 462, ICD10: J02.9 (primary diagnosis) Strep negative. Tx with Augmentin for URI, bilateral OM. Utilize probiotic. Follow up in 5-7 days if no improvement Warm tea with honey - STREP A MOLECULAR (POC) - AMOXICILLIN 875 MG-POTASSIUM CLAVULANATE 125 MG TABLET 2. URI, acute - ICD9: 465.9, ICD10: J06.9 Strep negative. Tx with Augmentin for URI, bilateral OM. Utilize probiotic. Follow up in 5-7 days if no improvement Warm tea with honey - STREP A MOLECULAR (POC) - AMOXICILLIN 875 MG-POTASSIUM CLAVULANATE 125 MG TABLET 3. Acute otitis media, bilateral - ICD9: 382.9, ICD10: H66.93 Strep negative. Tx with Augmentin for URI, bilateral OM. Utilize probiotic. Follow up in 5-7 days if no improvement Warm tea with honey - STREP A MOLECULAR (POC) - AMOXICILLIN 875 MG-POTASSIUM CLAVULANATE 125 MG TABLET Vale Bullard APRN.CNP [facility] Miscellaneous Notes* Telephone Encounter - Vale Bullard APRN.CNP - 02/22/2022 8:58 AM EST Noted, thank you. Vale Bullard APRN.CNP * Telephone Encounter - Tye Mcneal RN - 02/22/2022 8:15 AM EST Protocol recommends see provider within 24 hours. Scheduled same day appt. Reason for Disposition Earache also present Answer Assessment - Initial Assessment Questions 1. ONSET: Sore throat started yesterday. 2. SEVERITY: Moderate 3. 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 4. VIRAL SYMPTOMS: Hoarse voice. Wants to cough but can't. Throat is itchy- gargled with warm salt water yesterday. Chills/sweaty. Sinus congestion and drainage. SOB- hx asthma. 5. FEVER: Doesn't know. 6. PUS ON THE TONSILS: No tonsils. 7. OTHER SYMPTOMS: Headache. SOB. Jung earache. 8. : No. Protocols used: Sore [id number] documented in this [facility]10-17-2022 Miscellaneous Notes* Telephone Encounter - Autumn Villanueva Ma - 12/28/2021 12:40 PM EDT Pt informed, verbalized understanding Autumn Villanueva Ma * Telephone Encounter - Rachael Roche APRN.CNP - 12/28/2021 12:31 PM EDT The following approved medication requests have been transmitted electronically. Requested Prescriptions Signed Prescriptions Disp Refills benzonatate (TESSALON PERLES) 100 mg capsule 60 capsule 0 Sig: Take 1 capsule by mouth three times daily as needed for cough. Authorizing Provider: RACHAEL ROCHE APRN.LEIGH * Telephone Encounter - Ashley Nieves LPN - 12/28/2021 11:58 AM EDT Pt called and states she is not allowed to have narcotics. Please send a cough medication with out narcotics to pt's pharmacy. Ashley Nieves LPN documented in [facility] encounterR[facility]10-[facility]22 History of Present illness Narrative* Rachael Roche APRN.CNP - 12/28/2021 10:40 AM EDT Chief Complaint Patient presents with: URI: Started , low grade fever, cough, nasal congestion coughing up greenish colored mucus, headache , ear pressuire HPI Heron MAKI is a 36 year old female who presents here today for Above Complaints.. Heron is an established patient of Dr. Kendall DO. She is a new patient to me today. Concerns today.. Head cold/cough --- Starting as head congestion x 5 days ago. Now into chest. Deep productive cough with green sputum. Chest congestion started yesterday. No sleep because hard time breathing and coughing all night. Tried robitussin and mucinex and alkaselzer with some relief. No testing for COVID at home. Asthma -- using advair inhaler as needed. Not needing much more with this. Needs any wheezing. Justconstant cough. Hx of pneumonia in the past. Pt reports "feels like this could be the beginning stages". No other concerns or complaints. Past medical history, appointments, medications, allergies reviewed. Previous Medical History PAST MEDICAL HISTORY Diagnosis Date Acute glomerulonephritis with unspecified pathological lesion in kidney 1998 post strep glomerulonephritis Major depressive disorder, recurrent episode, unspecified Unspecified asthma(493.90) Previous Surgical History PAST SURGICAL HISTORY Procedure Laterality Date SECTION HX D AND C PAST SURGICAL HISTORY OF Left ankle surgery x 2 TONSILLECTOMY HX Family History FAMILY HISTORY Problem Relation Age of Onset Headache Mother other (depression) Mother of EtOH + Vicodin Patient Allergies ALLERGIES Allergen Reactions Animal Dander Prednisone Hives, Rash, Swelling Current Medications Current Outpatient Medications on File Prior to Visit Medication Sig lamoTRIgine (LAMICTAL) 150 mg tablet Take 1 tablet by mouth twice daily. naproxen (NAPROSYN) 500 mg tablet Take 1 tablet by mouth twice daily as needed (for pain/inflammation). Take with food. hydrOXYzine HCl (ATARAX) 25 mg tablet Take 1 tablet by mouth twice daily. multivit [id number] 186 3.3 mg iron-25 mcg tab vitamin B complex (B COMPLEX 1 ORAL) No current facility-administered medications on file prior to visit. Social History Social History Tobacco Use Smoking status: Former Types: Cigarettes Smokeless tobacco: Never Tobacco comments: 1.5/wk Substance Use Topics Alcohol use: Not Currently Alcohol/week: 10.0 standard drinks Types: 4 Cans of Beer (12oz) per week Drug use: Yes Types: Marijuana Comment: medical REVIEW OF SYSTEMS: as above Reviewed relevant PMHx, PSHx, Social Hx, current medications and allergies. Review of Symptoms REVIEW OF SYSTEMS See HPI. EXAM: BP 100/60 (BP Site: Right Arm, BP Position: Sitting, BP Cuff Size: Regular Adult) Pulse 69 Temp37.6 C (99.6 F) Resp 14 Wt 59.8 kg (131 lb 12.8 oz) LMP 03/31/2021 (Approximate) SpO2 100% BMI 21.70 kg/m General Appearance: Well appearing, alert, in no acute distress, well-hydrated, well nourished.. Skin: Skin color, texture, turgor normal, no suspicious rashes or lesions. Head: Normocephalic, no masses, lesions, tenderness or abnormalities. Nose/Sinuses: Nares normal, septum midline, mucosa normal, no drainage or sinus tenderness. Oropharynx: Lips, mucosa, and tongue normal, teeth and gums normal, oropharynx normal. Lungs: Lungs clear to auscultation. No wheezing, rhonchi, rales.. Heart: RRR without murmur, gallop, or rubs. No ectopy. Health Maintenance List HEPATITIS B(1 of 3 - 3-dose series) Never done HEPATITIS C SCREENING Never done HIV SCREENING Never done DTAP,TDAP,TD(1 - Tdap) Never done INFLUENZA(1) Never done COVID-19 VACCINE(1) due on 05/12/2022 PAP TESTING due on 05/21/2025 HPV TESTING due on 05/21/2025 ASSESSMENT/PLAN: 1. Acute cough - ICD9: 786.2, ICD10: R05.1 (primary diagnosis) Chest x-ray to rule out pneumonia. Start z-jessica. If pneumonia, may need to change regimen. Guaifenesin with codeine cough syrup as needed at bedtime. - XR CHEST 2V FRONTAL/LAT - AZITHROMYCIN 250 MG TABLET - CODEINE 10 MG-GUAIFENESIN 100 MG/5 ML ORAL LIQUID PDMP website checked and validated. All prescriptions have been APPROPRIATELY filled. No suspiciousactivity was identified. 12/28/2021 by Rachael Roche APRN.HOSE BUILDER 2. Bronchitis - ICD9: 490, ICD10: J40 See above. - XR CHEST 2V FRONTAL/LAT - AZITHROMYCIN 250 MG TABLET - CODEINE 10 MG-GUAIFENESIN 100 MG/5 ML ORAL LIQUID RTO if symptoms worsen or do not improve in 5 days. Prescription instructions reviewed with patient as applicable. Potential red flag symptoms discussed with the patient. Reviewed appropriate action plan to take if red flag symptoms occur. Patient agreeable to treatment plan. Rachael Roche APRN.CNP [address] [place] [address] documented in this encounterR[facility]09-15-2022 Miscellaneous Notes* Telephone Encounter - Rachael Roche APRN.CNP - 11/26/2021 10:12 AM EDT The following approved medication requests have been transmitted electronically. Requested Prescriptions Signed Prescriptions Disp Refills lamoTRIgine (LAMICTAL) 150 mg tablet 180 tablet 0 Sig: Take 1 tablet by mouth twice daily. Rachael Roche APRN.CNP * Telephone Encounter - Autumn Villanueva Ma - 11/26/2021 10:09 AM EDT Rx pended Autumn Villanueva Ma documented in this encounterR[facility]08-05-2022 Miscellaneous Notes* Telephone Encounter - Ashley Nieves LPN - 10/16/2021 8:05 AM EDT Pt called back and information listed below was given. Ashley Nieves LPN * Telephone Encounter - Autumn Villanueva Ma - 10/14/2021 7:38 PM EDT TC patient and went straight to . VM left to contact office regarding important information. Autumn Villanueva Ma * Telephone Encounter - Rachael Roche APRN.CNP - 10/14/2021 6:47 PM EDT I agree with below that patient needs to be evaluated in ED. Last CT scan was from July. Thank you, Rachael Roche APRN.CNP * Telephone Encounter - Juana Russo RN - 10/14/2021 10:03 AM EDT Patient calls to report that she has had a consistent headache for past 5 days and is taking naproxen and OTC tylenol with little relief. She believes it is still related to the concussion as she hasbeen having them on and off since. She reports it as a dull pressure to the right occipital lobe ofhead. Also reports that she has had clear nasal drainage from one side of nose since concussion occurred. Patient concerned with possibly leaking CSF. Recommended ED for follow up CT scan per previous encounter. Patient requesting provider review previous CT scan and advise. Offered follow up appointment but patient declined. Juana Russo RN documented in this encounterR[facility]07-28-2022 Miscellaneous Notes* Telephone Encounter - Vale Bullard APRN.CNP - 10/08/2021 6:08 PM EDT Noted, thank you. Vale Bullard APRN.CNP * Telephone Encounter - Sandi Valdes LPN - 10/08/2021 1:45 PM EDT T/c to pt She states she does feel that things have improved some and definitely no worse. She is very tired today but does not know if its because she is anxious about this and they spent all day [place]. Explained would let provider know. And if there were any changes and things were to get worse to go to er or call in. She said its been 2 1/2 months since concussion. * Telephone Encounter - Vale Bullard APRN.CNP - 10/08/2021 1:33 PM EDT Please call and find out how she is feeling. Vale Bullard APRN.LEIGH * Telephone Encounter - Isamar So LPN - 10/07/2021 1:56 PM EDT Patient calling she had concussion over 2 months ago. She is at [employer] and did a roller coaster ride with her daughter and now wondering if she did something to herself. Patient said her vision right eye is not as clear as her left and she has slight headache. Patient said her vision is not blurred just off. Advised PCP is out of office until 10/12. Advised to not do anymore roller coaster rides and if things do not improve she may need to be evaluated again. documented in this encounterR[facility]03-22-2022 Miscellaneous Notes* Telephone Encounter - Kathryn Marques - 06/02/2021 7:57 AM EDT 2 nd attempt left message to return call to schedule appt to check mole per my chart request. My chart message also sent. * Telephone Encounter - Kathryn Marques - 05/29/2021 2:13 PM EDT 1st attempt left message to return call to schedule appt to check mole per my chart request * Telephone Encounter - Rachael Roche APRN.CNP - 05/27/2021 7:16 PM EDT Noted. Thank you for the reference. Please assist patient in making Emma to make in office appointment to assess mole. Rachael Roche APRN.HOSE BUILDER [facility] Author Dr[facility] Mendoza [facility] June 27, 2022 11:50am Note Date/Time June 27, 2022 11: 43am [facility] Medical Records Department [address] [place] [id number] Instructions for Home/Discharge Instructions 06/27/22 1143 MR#: [id number] Acct: [id number] Name: HERON MAKI Rep # :[id number] : 1985 37 From: Clarke Barahona PCP: Dr. Jeovany Argueta, DO Status:AD M KEILA Discharge Instructions Diet Discharge Diet: No restrictions Activity Discharge Activity: May Not Drive (May not drive while taking narcotic pain medications) and May Shower (May begin showering 48hours postop. Please avoid baths or submerging surgical incisions before skin is completely healed.) May shower in (days): 1 May resume sexual activity in: 2 weeks Ice area for (Minutes): 20 Lifting Restrictions: Limit lifting to <10lbs for 4 weeks following surgery Dressing / Incision Call your doctor if your incision/area has: Sudden Increased Bleeding, IncreasedPain/ Swelling, Increased Redness, Foul Smelling Discharge and Swelling at the incision site Call your doctor if you observe: Fever of 101 or Higher, Inability to urinate, Inability to have a bowel movement and Uncontrolled pain Suture Line Care: Avoid Pulling/Pushing Remove Dressing in: 1 day (Please leave steri strips (medical tape) in place until they fall off spontaneously or are removed at your follow-up appointment) Cleanse incision/area with: Keep Dressing Clean & Dry Follow Up Care Please Follow Up With: Clarke Mendoza MD When: 1 week postop Test Results: Test results from this visit will be discussed in further detail at your follow- up appointment, if applicable. Discharge Plan Admission Admit Date/Time: 06/26/22 01:40 Primary Reason for Your Visit: Laparoscopic appendectomy Attending Provider: Clarke Mendoza Primary Care Provider: Jevoany Argueta Instructions Patient Instructions: Appendectomy Lap Dc, Opioid Use Risks Discharge Orders/Prescriptions Prescriptions: New oxycodone 5 mg Tablet 5 mg PO Q6H PRN PRN (Reason: Pain Score 6-10) 3 Days Qty: 14 0RF Continued lamotrigine [Lamictal] 200 mg tablet 200 mg PO BID multivitamin with minerals [Hair,Skin and Nails] Tablet 1 tab PO DAILY hydroxyzine HCl 10 mg tablet 10 mg PO TID PRN (Reason: Anxiety) cyanocobalamin (vitamin B-12) 500 MCG tablet 500 mcg PO DAILY@0800 topiramate 25 mg tablet 25 mg PO QHS Referrals / Follow Up: Jeovany Argueta DO [Primary Care Provider] - Jeovany Argueta OLS [[facility]] - Disposition Disposition (needs filled in before D/C Order can be placed): Home, Self Care 06/27/22 1150<Electronically signed by Clarke Mendoza MD>Clarke Mendoza MD CC: Dr. Jeovany Argueta DO ~ Signed [facility] Work Phone: Discharge summary Author Dr. Mendoza [facility] June 27, 2022 12:20pm Note Date/Time June 27, 2022 11: 51am [facility] Medical Records Department [address] [place] [id number] Discharge Summary 06/27/22 1150 MR#: [id number] Acct: [id number] Name: HERON MAKI Rep # :[id number] : 1985 37 From: Clarke Barahona PCP: Dr. Jeovany Argueta DO Status:ARMANDO PEDRAZA Location: [facility] [id number] Providers Date of Admission: 06/26/22 Primary Care Physician: Dr. Jeovany Argueta DO Reason For Visit: APPENDICITIS Diagnosis Discharge Diagnosis (1) Mucocele of appendix: Status: Acute Code(s): K38.8 - Other specified diseases of appendix (2) Acute appendicitis: Status: Acute Code(s): K35.80 - Unspecified acute appendicitis Plan Patient presenting with acute onset right lower quadrant pain and concern for acute appendicitis. While her limited pain experience and white count are further suggestive of this diagnosis, her reports of diarrhea, weight loss, and CT imaging suggesting more insidious process. Radiology read of CT is concerning for mucocele of the appendix. I have discussed with patient and her spouse ramifications of this reading and recommended operative intervention. I stated I would plan for a laparoscopic appendectomy, however, intraoperative findings could dictate a need towards open laparotomy if it appeared there is risk for perforation of the mucocele and possible need for more extensive surgery to include possible right hemicolectomy if findings suggested margins could not be obtained with an appendectomy alone and an oncologic resection was indicated. Patient and her spouse appear understandably overwhelmed, but reports their questions have been answered to their satisfaction and they would like to proceed as described. For now we will admit patient to the floor with plan as follows: ? N.p.o. for surgery ? Maintenance IV fluids ? As needed pain Rx ? Continue empiric antibiotics ? Consent for laparoscopic appendectomy with possible exploratory laparotomy, possibility ileocecectomy, possible right hemicolectomy, and other procedures asindicated Medications at Discharge Home Medications cyanocobalamin (vitamin B-12) 500 mcg tablet 500 mcg PO DAILY@0800 REPLACEMENT 01/18/13 hydroxyzine HCl 10 mg tablet 10 mg PO TID PRN Anxiety 12/27/19 multivitamin with minerals (Hair,Skin and Nails tablet) 1 tab PO DAILY 12/27/19 lamotrigine 200 mg tablet (Lamictal) 200 mg PO BID 05/01/20 topiramate 25 mg tablet 25 mg PO QHS 06/25/22 oxycodone 5 mg tablet 5 mg PO Q6H PRN PRN Pain Score 6-10 3 days #14 tabs 06/27/22 Hospital Course Operations appendectomy (Teen 2022) Summary of Care Provided Hospital Course: Patient a 37-year-old female who presented to [facility] on the evening of 06/25/2022 with complaints of acute onset abdominal pain. ER work-up was suggestive of a diagnosis of acute appendicitis with CBC showing elevated WBC and providers exam demonstrating significant right lower quadrant pain. However, patient's CT imaging showed a severely dilated appendix that appeared to be fluid-filled and was concerning for an appendiceal mucocele. Lengthy discussion was held with patient and her spouse regarding a recommendation for surgery but also the potential for malignancy and the need to avoid any perforation of the specimen. Patient provided her consent and the procedure wasundertaken the morning of 06/26/2022. It proceeded in uncomplicated fashion, butthe base of the cecum was also taken with the specimen in order to transect through grossly normal tissue. Patient was then returned to the hospital ford for ongoing recovery where she tolerated her initial diet advancement to liquidsand a subsequent diet advancement to regular diet. This morning, postoperative day 1 she request discharge home as she is feeling well apart from some mild postoperative soreness at her incisions. Her vitals remained stable, her exam was acceptable, and her labs were improved. Therefore, discharge expectations were discussed and the patient's request was granted. Physical Exam Const alert, oriented x3 and no apparent distress General Appearance: cooperative Orientation / Consciousness: awake Resp normal respiratory effort GI GI Narrative: Minimally distended, operative dressings remain stable with small amount of bloody strikethrough at the supraumbilical port site. Patient's abdomen is appropriately tender with palpation about port sites only. There is no tenderness in the right lower quadrant with palpation. Weight / BMI Weight Weight: 130 lb 6.4 oz Body Mass Index (BMI) 22.4 ABG / Lab / Microbiology Data Result Diagrams: 06/27/22 04:51 06/27/22 04:51 Laboratory: Laboratory Results - last 24 hr 06/27/22 04:51: WBC 10.2, RBC 3.69 L, Hgb 11.0 L, Hct 33.5 L, MCV 90.8, MCH 29.8, MCHC 32.8, RDW Std Deviation 44.2 H, RDW Coeff of Felicitas 13.3, Plt Count 305,MPV 10.6, Immature Gran % (Auto) 0.300, Neut % (Auto) 64.5, Lymph % (Auto) 24.3,Kaufman % (Auto) 10.0, Eos % (Auto) 0.6, Baso % (Auto) 0.3, Absolute Neuts (auto) 6.5, Absolute Lymphs (auto) 2.47, Nucleated RBC % 0 06/27/22 04:51: Sodium 139, Potassium 3.7, Chloride 112 H, Carbon Dioxide 24.0, Anion Gap 3 L, BUN 5 L, Creatinine 0.53 L, Estim Creat Clear Calc 127.93, Est GFR (MDRD) Af Amer 169, Est GFR (MDRD) Non-Af 139, BUN/Creatinine Ratio 9.5 L, Glucose 96, Calcium 7.9 L, Phosphorus 2.1 L, Magnesium 1.7 D/C Instructions Discharge Diet: No restrictions May shower in (days): 1 May resume sexual activity in: 2 weeks Ice area for (Minutes): 20 Call your doctor if your incision/area has: Sudden Increased Bleeding, IncreasedPain/ Swelling, Increased Redness, Foul Smelling Discharge and Swelling at the incision site Call your doctor if you observe: Fever of 101 or Higher, Inability to urinate, Inability to have a bowel movement and Uncontrolled pain Suture Line Care: Avoid Pulling/Pushing Cleanse incision/area with: Keep Dressing Clean & Dry Please Follow Up With: Clarke Mendoza MD When: 1 week postop Meaningful Use Info Meaningful Use Diagnoses (Choose all that apply): None applicable Discharge Plan Admission Admit Date/Time: 06/26/22 01:40 Primary Reason for Your Visit: Laparoscopic appendectomy Attending Provider: Clarke Mendoza Primary Care Provider: Jeovany Argueta Instructions Patient Instructions: Appendectomy Lap Dc, Opioid Use Risks Discharge Orders/Prescriptions Prescriptions: New oxycodone 5 mg Tablet 5 mg PO Q6H PRN PRN (Reason: Pain Score 6-10) 3 Days Qty: 14 0RF Continued lamotrigine [Lamictal] 200 mg tablet 200 mg PO BID multivitamin with minerals [Hair,Skin and Nails] Tablet 1 tab PO DAILY hydroxyzine HCl 10 mg tablet 10 mg PO TID PRN (Reason: Anxiety) cyanocobalamin (vitamin B-12) 500 MCG tablet 500 mcg PO DAILY@0800 topiramate 25 mg tablet 25 mg PO QHS Referrals / Follow Up: Jeovany Argueta DO [Primary Care Provider] - Jeovany Argueta OLS [[facility]] - Disposition Disposition (needs filled in before D/C Order can be placed): Home, Self Care Charges/Coding Visit Charges Inpatient E&M: [id number] Disch Hosp 06/27/22 1220 <Electronically signed by Clarke Mendoza MD> Cosigner Signature (if applicable): CC: Dr. Jeovany Argueta DO; Dr. Clarke Mendoza MD~ Signed [facility] Work Phone: Evaluation noteNo assessment information available [facility] Work Phone: evaluation note* Diagnosis Acute cough- Primary Bronchitis Bronchitis, not specified as acute or chronic documented in this encounter [facility] note* Diagnosis Sore throat- Primary Acute pharyngitis URI, acute Acute upper respiratory infections of unspecified site Acute otitis media, bilateral Unspecified otitis media documented in this encounter [facility] note* Diagnosis Sore throat- Primary Acute pharyngitis documented in this encounter [facility] note* Diagnosis Vitiligo- Primary Concentration deficit Attention or concentration deficit Intolerance to cold Other general symptoms Generalized joint pain Fatigue, unspecified type Screening for HIV (human immunodeficiency virus) Special screening examination for other specified viral diseases Special screening examination for viral disease Special screening examination for unspecified viral disease Screening for diabetes mellitus Screening for lipid disorders [facility]* Diagnosis Onset Date Resolution Status Acute appendicitis acute Mucocele of appendix acute [facility] Work Phone: evaluation note* Diagnosis Onset Date Resolution Status Acute appendicitis acute History of migraine headaches acute Mucocele of appendix acute [facility] Work Phone: evaluation note* Diagnosis Elevated LFTs- Primary Other abnormal blood chemistry Elevated TSH Nonspecific abnormal results of thyroid function study Pure hypercholesterolemia documented in this encounter [facility] note* Diagnosis URI, acute- Primary Acute upper respiratory infections of unspecified site documented in this encounter [facility] note* Diagnosis Bacterial sinusitis- Primary Unspecified sinusitis (chronic) [facility] Diagnosis Sinobronchitis- Primary Unspecified sinusitis (chronic) [facility]* Diagnosis Bacterial sinusitis- Primary Unspecified sinusitis (chronic) documented in this encounter [facility] note* Diagnosis URI, acute- Primary Acute upper respiratory infections of unspecified site [facility]* Diagnosis Acute non-recurrent maxillary sinusitis- Primary Moderate persistent asthma, uncomplicated Unspecified asthma Acute cough documented in this encounter [facility] note* Diagnosis Screening for diabetes mellitus- Primary Annual physical exam Routine general medical examination at a health care facility Pure hypercholesterolemia Elevated TSH Nonspecific abnormal results of thyroid function study [facility]* Diagnosis Vitiligo- Primary Elevated TSH Nonspecific abnormal results of thyroid function study [facility]* Diagnosis Vitiligo- Primary Melasma Other dyschromia [facility]* Diagnosis Moderate persistent asthma, uncomplicated (HCC)- Primary Unspecified asthma documented [facility] this encounter [facility] Author Dr. Mendoza [facility] June 26, 2022 2:00am Note Date/Time June 26, 2022 2:0 0am [facility] Medical Records Department [address] [place] [address] History & Physical Exam 06/26/22 0148 MR#: [id number] Acct: [id number] Name: HERON MAKI Rep # :[id number] : 1985 37 From: Clarke Barahona PCP: Dr. Jeovany Argueta, DO Status:ARMANDO Gamble KEILA Location: [facility] [place] [id number] HPI - General General Date of Service: 06/26/22 Chief Complaint: Acute onset right lower quadrant abdominal pain HPI Narrative HERON MAKI, is a 37 F who presents to [facility] with complaints of acute onset right lower quadrant abdominal pain that began yesterday and has been associated with some loose stools. Patient notes some associated chills as well. She notes that her loose stools have preceded the pain by a couple of weeks and confirms some subjective weight loss (she reports that her clothing is fitting baggy, but states that she does not routinely weighherself). ER work-up is notable for CBC that demonstrates a leukocytosis of over 15,[address] imaging concerning for appendiceal mucocele given dilation of the appendix of up to 1.8 cm. Radiology also notes some mural calcifications. Patient states that she normally enjoys a active lifestyle and is relatively healthy at baseline. Her only medications are taken for some mental health diagnoses. Surgically, patient has a history of excisional breast biopsy as well as a D&C and . Patient denies any awareness of any familial cancer history. She admits, however, that she is estranged from her father and her mother is . [facility] Medical History (Updated 06/26/22 @ 01:[address] Clarke Mendoza MD) Anxiety and depression Home Medications cyanocobalamin (vitamin B-12) 500 mcg tablet 500 mcg PO DAILY@0800 01/18/13 [History Last Taken 01/18/13] hydroxyzine HCl 10 mg tablet 10 mg PO TID PRN Anxiety 12/27/19 [History Last Taken Unknown] multivitamin with minerals (Hair,Skin and Nails tablet) 1 tab PO DAILY 12/27/19 [History Last Taken Unknown] lamotrigine 200 mg tablet (Lamictal) 200 mg PO BID 05/01/20 [History Last Taken Unknown] topiramate 25 mg tablet 25 mg PO QHS 06/25/22 [History Last Taken Unknown] Allergy/AdvReac Type Severity Reaction Status Date / Time prednisone AdvReac Swelling Verified 06/25/22 21:55 Family History Grandfather Cancer prostate Grandmother Cancer skin Brother Asthma Surgical History ankle surgery delivery delivered H/O dilation and curettage History of tonsillectomy and adenoidectomy S/P breast biopsy, left Social History Smoking Status: Former smoker alcohol intake: never substance use type: does not use caffeine: Yes frequency: 5-6 times per week seatbelt use: always do you feel safe at home: Yes 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 Soft and exquisitely tender to palpation over McBurney's point. Negative psoas and obturator signs Results Lab / Micro Data Result Diagrams: 06/25/22 22:20 06/25/22 22:20 Labs: Laboratory Results - last 24 hr 06/25/22 22:20: Total Bilirubin 0.50, Direct Bilirubin 0.16, AST 18, ALT 25, Alkaline Phosphatase 42 L, Total Protein 7.4, Albumin 4.5, Globulin 2.9 06/25/22 22:20: WBC 15.4 H, RBC 4.60, Hgb 13.6, Hct 40.6, MCV 88.3, MCH 29.6, MCHC 33.5, RDW Std Deviation 41.8, RDW Coeff of Felicitas 13.0, Plt Count 386, MPV 10.1, Immature Gran % (Auto) 0.300, Neut % (Auto) 81.7 H, Lymph % (Auto) 13.2 L,Kaufman % (Auto) 4.0, Eos % (Auto) 0.5, Baso % (Auto) 0.3, Absolute Neuts (auto) 12.6 H, Absolute Lymphs (auto) 2.03, Nucleated RBC % 0 06/25/22 22:20: Sodium 137, Potassium 3.3 L, Chloride 105, Carbon Dioxide 25.0, Anion Gap 7, BUN 8, Creatinine 0.89, Estim Creat Clear Calc 76.19, Est GFR (MDRD) Af Amer 93, Est GFR (MDRD) Non-Af 76, BUN/Creatinine Ratio 9.0 L, Cnzajwv150 H, Calcium 9.7, Lipase 38 06/25/22 22:20: Urine Color Yellow, Urine Clarity Clear, Urine pH 9.0, Ur Specific [place] 1.020, Urine Protein Negative, Urine Glucose (UA) Normal, UrineKetones 5 H, Urine Occult Blood Negative, Urine Nitrite Negative, Urine Bilirubin Negative, Urine Urobilinogen Normal, Ur Leukocyte Esterase Negative, Urine RBC 0 SEEN, Urine WBC 0 SEEN, Ur Squamous Epith Cells 0-5 SEEN, Urine Bacteria 1+, Urine Mucus 0 SEEN, Urine Test Negative 06/25/22 22:54: Lactic Acid 1.6 Radiology Impression Abdomen/Pelvis CT 06/25/22 22:17 IMPRESSION: Abnormal appendix which is very distended with mural calcifications in the proximal lumen. 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 N.B. : The above Results were Read Back by Clarke Moffett MD to Neil Dunne DO, and understanding confirmed on 06/25/2022 23:38:57 (ET). Electronically Signed: Clarke Moffett MD at 23:44 EDT , ADDENDUM: 06/25/22 2351 IMPRESSION: Abnormal appendix which is very distended with mural calcifications in the proximal lumen. 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 N.B. : The above Results were Read Back by Clarke Moffett MD to Neil Dunne DO, and understanding confirmed on 06/25/2022 23:38:57 (ET). Electronically Signed: Clarke Moffett MD at 23:44 EDT , Assessment & Plan Assessment/Plan (1) Mucocele of appendix: (2) Acute appendicitis: PLAN: Plan Patient presenting with acute onset right lower quadrant pain and concern for acute appendicitis. While her limited pain experience and white count are further suggestive of this diagnosis, her reports of diarrhea, weight loss, and CT imaging suggesting more insidious process. Radiology read of CT is concerning for mucocele of the appendix. I have discussed with patient and her spouse ramifications of this reading and recommended operative intervention. I stated I would plan for a laparoscopic appendectomy, however, intraoperative findings could dictate a need towards open laparotomy if it appeared there is risk for perforation of the mucocele and possible need for more extensive surgery to include possible right hemicolectomy if findings suggested margins could not be obtained with an appendectomy alone and an oncologic resection was indicated. Patient and her spouse appear understandably overwhelmed, but reports their questions have been answered to their satisfaction and they would like to proceed as described. For now we will admit patient to the floor with plan as follows: ? N.p.o. for surgery ? Maintenance IV fluids ? As needed pain Rx ? Continue empiric antibiotics ? Consent for laparoscopic appendectomy with possible exploratory laparotomy, possibility ileocecectomy, possible right hemicolectomy, and other procedures as indicated Charges/Coding Visit Charges Inpatient E&M: 29519 Init Hosp L2 06/26/22 0200 <Electronically signed by Clarke Mendoza MD> Cosigner Signature (if applicable): CC: Dr. Jeovany Argueta DO; Dr. Clarke Mendoza MD~ Signed [facility] Work Phone: Rebewc for referral (narrative)No reason for referral information availableWMemorial [facility] Work Phone: Retvjs for referral (narrative)* Medication Prior Authorization - Closed Specialty Diagnoses / Procedures Referred By Contac t Referred To Contact Jeovany Argueta DO [address] [place] [address] Phone: tel: fax: Referral ID Status Reason Start Date Expiration Date Visits Re quested Visits Authorized [id number] Closed 1 1 [facility] Chief Complaint and Reason for Visit Chief Complaint HEAD INJURY Chief Complaint APPENDICITIS APPENDICITIS Reason for Visit Acute appendicitis Mucocele of appendix Chief Complaint APPENDICITIS APPENDICITIS APPENDICITIS Reason for Visit Acute appendicitis History of migraine headaches Mucocele of appendix Chief Complaint Admit Date HEAVY MENSES June 18, 2024 1:17 pm Chief Complaint Admit Date GROWTH ON LABIA *COPAY $20 December 18, 2024 3:17pm Family History No Family History Records Found Relationship Condition Age at Onset Recorded Date/T isidro grandfather Malignant neoplasm Unknown grandmother Malignant neoplasm Unknown brother Asthma Unknown Relationship Condition Age at Onset Recorded Date/T isidro grandfather Malignant neoplasm Unknown grandmother Malignant neoplasm Unknown brother Asthma Unknown mother Autoimmune disease Unknown Advance Directives No Advanced Directives Records Found Advance Directive Response Recorded Date/ Time Living Will No July 27, 2021 9 :35am Power of Paper Cup Machine Operator No July 27, 2021 9:35am Advance Directive Response Recorded Date/ Time Living Will No June 25, 2022 10:34pm Power of Paper Cup Machine Operator No June 25 10:34pm Advance Directive Response Recorded Date/ Time Name of Medical Power of Paper Cup Machine Operator SUNIL MAKI June 26, 2022 2:42am Living Will Yes June 26, 2022 2:42am Power of Paper Cup Machine Operator Yes June 26 2:42am Summary Purpose Additional Source Comments Source Comments (unrecognize d section and content) In the event this informatio n is protected by the Federal Confidentiality of Alcohol and Drug Abuse Patient Records regulations: The Federal rules restrict any use of the information to criminally investigate or prosecute any alcohol or drug abuse patient.[facility] the event this information is protected by the Federal Confidentiality of Alcohol and Drug Abuse Patient Records regulations: The Federal rules restrict any use of the information to criminally investigate or prosecute any alcohol or drug abuse patient.[facility] HospitalIn the event this information is protected by the Federal Confidentiality of Alcohol and Drug Abuse Patient Records regulations: The Federal rules restrict any use of the information to criminally investigate or prosecute any alcohol or drug abuse patient.[facility] HospitalIn the event this information is protected by the Federal Confidentiality of Alcohol and Drug Abuse Patient Records regulations: The Federal rules restrict any use of the information to criminally investigate or prosecute any alcohol or drug abuse patient.[facility] the event this information is protected by the Federal Confidentiality of Alcohol and Drug Abuse Patient Records regulations: The Federal rules restrict any use of the information to criminally investigate or prosecute any alcohol or drug abuse patient.[facility] HospitalIn the event this information is protected by the Federal Confidentiality of Alcohol and Drug Abuse Patient Records regulations: The Federal rules restrict any use of the information to criminally investigate or prosecute any alcohol or drug abuse patient.[facility] HospitalIn the event this information is protected by the Federal Confidentiality of Alcohol and Drug Abuse Patient Records regulations: The Federal rules restrict any use of the information to criminally investigate or prosecute any alcohol or drug abuse patient.[facility] HospitalIn the event this information is protected by the Federal Confidentiality of Alcohol and Drug Abuse Patient Records regulations: The Federal rules restrict any use of the information to criminally investigate or prosecute any alcohol or drug abuse patient.[facility] Hospital[facility] the event this information is protected by the Federal Confidentiality of Alcohol and Drug Abuse Patient Records regulations: The Federal rules restrict any use of the information to criminally investigate or prosecute any alcohol or drug abuse patient.[facility] HospitalIn the event this information is protected by the Federal Confidentiality of Alcohol and Drug Abuse Patient Records regulations: The Federal rules restrict any use of the information to criminally investigate or prosecute any alcohol or drug abuse patient.[facility] Hospital[facility] the event this information is protected by the Federal Confidentiality of Alcohol and Drug Abuse Patient Records regulations: The Federal rules restrict any use of the information to criminally investigate or prosecute any alcohol or drug abuse patient.[facility] HospitalIn the event this information is protected by the Federal Confidentiality of Alcohol and Drug Abuse Patient Records regulations: The Federal rules restrict any use of the information to criminally investigate or prosecute any alcohol or drug abuse patient.[facility] HospitalIn the event this information is protected by the Federal Confidentiality of Alcohol and Drug Abuse Patient Records regulations: The Federal rules restrict any use of the information to criminally investigate or prosecute any alcohol or drug abuse patient.[facility] HospitalIn the event this information is protected by the Federal Confidentiality of Alcohol and Drug Abuse Patient Records regulations: The Federal rules restrict any use of the information to criminally investigate or prosecute any alcohol or drug abuse patient.[facility] HospitalIn the event this information is protected by the Federal Confidentiality of Alcohol and Drug Abuse Patient Records regulations: The Federal rules restrict any use of the information to criminally investigate or prosecute any alcohol or drug abuse patient.[facility] HospitalIn the event this information is protected by the Federal Confidentiality of Alcohol and Drug Abuse Patient Records regulations: The Federal rules restrict any use of the information to criminally investigate or prosecute any alcohol or drug abuse patient.[facility] HospitalIn the event this information is protected by the Federal Confidentiality of Alcohol and Drug Abuse Patient Records regulations: The Federal rules restrict any use of the information to criminally investigate or prosecute any alcohol or drug abuse patient.[facility] HospitalIn the event this information is protected by the Federal Confidentiality of Alcohol and Drug Abuse Patient Records regulations: The Federal rules restrict any use of the information to criminally investigate or prosecute any alcohol or drug abuse patient.[facility] HospitalIn the event this information is protected by the Federal Confidentiality of Alcohol and Drug Abuse Patient Records regulations: The Federal rules restrict any use of the information to criminally investigate or prosecute any alcohol or drug abuse patient.[facility] HospitalIn the event this information is protected by the Federal Confidentiality of Alcohol and Drug Abuse Patient Records regulations: The Federal rules restrict any use of the information to criminally investigate or prosecute any alcohol or drug abuse patient.[facility] HospitalIn the event this information is protected by the Federal Confidentiality of Alcohol and Drug Abuse Patient Records regulations: The Federal rules restrict any use of the information to criminally investigate or prosecute any alcohol or drug abuse patient.[facility] HospitalIn the event this information is protected by the Federal Confidentiality of Alcohol and Drug Abuse Patient Records regulations: The Federal rules restrict any use of the information to criminally investigate or prosecute any alcohol or drug abuse patient.[facility] HospitalIn the event this information is protected by the Federal Confidentiality of Alcohol and Drug Abuse Patient Records regulations: The Federal rules restrict any use of the information to criminally investigate or prosecute any alcohol or drug abuse patient.[facility] HospitalIn the event this information is protected by the Federal Confidentiality of Alcohol and Drug Abuse Patient Records regulations: The Federal rules restrict any use of the information to criminally investigate or prosecute any alcohol or drug abuse patient.[facility] HospitalIn the event this information is protected by the Federal Confidentiality of Alcohol and Drug Abuse Patient Records regulations: The Federal rules restrict any use of the information to criminally investigate or prosecute any alcohol or drug abuse patient.[facility] HospitalIn the event this information is protected by the Federal Confidentiality of Alcohol and Drug Abuse Patient Records regulations: The Federal rules restrict any use of the information to criminally investigate or prosecute any alcohol or drug abuse patient.[facility] HospitalIn the event this information is protected by the Federal Confidentiality of Alcohol and Drug Abuse Patient Records regulations: The Federal rules restrict any use of the information to criminally investigate or prosecute any alcohol or drug abuse patient.[facility] HospitalIn the event this information is protected by the Federal Confidentiality of Alcohol and Drug Abuse Patient Records regulations: The Federal rules restrict any use of the information to criminally investigate or prosecute any alcohol or drug abuse patient.[facility] HospitalIn the event this information is protected by the Federal Confidentiality of Alcohol and Drug Abuse Patient Records regulations: The Federal rules restrict any use of the information to criminally investigate or prosecute any alcohol or drug abuse patient.[facility] Care Teams (unrecognized sec tion and content) Senior Adults Director Relationship Specialty Start Date End Date Jeovany Argueta, DO [address] [place] [address] PCP - General Family Practice 05/12/21 Senior Adults Director Relationship Specialty Start Date End Date Jeovany Argueta, [address] [place] [address] PCP - General Family Practice 05/12/21 Senior Adults Director Relationship Specialty Start Date End Date Jeovany Argueta DO [address] [place] [address] PCP - General Family Practice 05/12/21 Senior Adults Director Relationship Specialty Start Date End Date Jeovany Argueta, DO [address] [place] [address] PCP - General Family Medicine 05/12/21 Senior Adults Director Relationship Specialty Start Date End Date Jeovany Argueta, DO [address] [place] [address] PCP - General Family Medicine 05/12/21 Senior Adults Director Relationship Specialty Start Date End Date Jeovany Argueta, DO [address] [place] [address] PCP - General Family Medicine 05/12/21 Senior Adults Director Relationship Specialty Start Date End Date Jeovany Argueta, DO [address] [place] [address] PCP - General Family Medicine 05/12/21 Senior Adults Director Relationship Specialty Start Date End Date Jeovany Argueta, DO [address] [place] [address] PCP - General Family Medicine 05/12/21 Senior Adults Director Relationship Specialty Start Date End Date Jeovany Argueta, DO [address] [place] [address] PCP - General Family Medicine 05/12/21 Team Status: Active Member Role Status Dates Dr. Stella Fleming MD Family Provider Active Dr. Jeovany Argueta , DO Primary Care Provider Active Team Status: Active Member Role Status Dates Dr. Neil Dunne , DO Emergency Provider Active Dr. Jeovany Argueta , DO Primary Care Provider Active Dr. Clarke Mendoza MD Admit Provider, A ttending Provider, Other Provider Active Team Status: Active Member Role Status Dates Dr. Neil Dunne , DO Emergency Provider Active Dr. Jeovany Argueta , DO Primary Care Provider Active Dr. Clarke Mendoza MD Admit Provider, Attending Provi poonam Active Team Status: Inactive Member Role Status Dates Dr. Neil Dunne , DO Emergency Provider Active Dr. Jeovany Argueta DO Primary Care Provider Active Dr. Clarke Mendoza MD Admit Provider, Attending Provi poonam Active Senior Adults Director Relationship Specialty Start Date End Date Jeovany Argueta DO [address] [place] [place] [address] PCP - General Family Medicine 05/12/21 Senior Adults Director Relationship Specialty Start Date End Date Jeovany Argueta DO [address] [place] [address] PCP - General Family Medicine 05/12/21 Senior Adults Director Relationship Specialty Start Date End Date Jeovany Argueta DO [address] [place] [address] PCP - General Family Medicine 05/12/21 Senior Adults Director Relationship Specialty Start Date End Date Jeovany Argueta DO [address] [place] [address] PCP - General Family Medicine 05/12/21 Senior Adults Director Relationship Specialty Start Date End Date Jeovany Argueta DO [address] [place] [address] PCP - General Family Medicine 05/12/21 Senior Adults Director Relationship Specialty Start Date End Date Jeovany Argueta DO [address] [place] [address] PCP - General Family Medicine 05/12/21 Senior Adults Director Relationship Specialty Start Date End Date Jeovany Argueta DO [address] [place] [address] PCP - General Family Medicine 05/12/21 Rachael Recinos, JOY OPERATOR HELPER.HOSE BUILDER [address] [place] [address] Intern Retail Family Medicine 02/19/24 Vale Bullard, JOY OPERATOR HELPER.HOSE BUILDER [address] [place] [address] Intern Retail Family Medicine 02/19/24 Senior Adults Director Relationship Specialty Start Date End Date Jeovany Argueta DO [address] [place] [address] PCP - General Family Medicine 05/12/21 Rachael Recinos, JOY OPERATOR HELPER.HOSE BUILDER [address] [place] [address] [facility]24 Vale Bullard, JOY OPERATOR HELPER.HOSE BUILDER [address] [place] [address] [facility]/19/24 Senior Adults Director Relationship Specialty Start Date End Date Jeovany Argueta DO [address] [place] [address] PCP - General Family Medicine 05/12/21 Rachael Recinos, JOY OPERATOR HELPER.HOSE BUILDER [address] [place] [address] Intern Retail Family Medicine 02/19/24 Vale Bullard, JOY OPERATOR HELPER.HOSE BUILDER [address] [place] [address] [facility] 02/19/24 Senior Adults Director Relationship Specialty Start Date End Date Jeovany Argueta DO [address] [place] [address] PCP - General Family Medicine 05/12/21 [facility]Vale, JOY OPERATOR HELPER.HOSE BUILDER [address] [place] [address] Formerly [facility] 02/19/24 Team Status: Active Member Role Status Dates Dr. Jeovany Argueta DO Primary Care Provider Active Team Status: Inactive Member Role Status Dates Dr. Jeovany Argueta DO Primary Care Provider Active Start: June 18, 2024 End: June 18, 2024 Dr. Shilpi Boyle MD Attending Provider Active Start: June 18, 2024 End: June 18, 2024 Dr. Shilpi Boyle MD Referring Provider Active Start: June 18, 2024 End: June 18, 2024 Senior Adults Director Relationship Specialty Start Date End Date Jeovany Argueta DO [address] [place] [place] [address] PCP - [facility] 05/12/21 [facility]Marisolah, JOY OPERATOR HELPER.HOSE BUILDER [address] [place] [address] Formerly [facility] 02/19/24 Patty Melton, JOY OPERATOR HELPER.HOSE BUILDER [address] [place] [address] Formerly [facility] 08/27/24 Senior Adults Director Relationship Specialty Start Date End Date Jeovany Argueta DO [address] [place] [place] [address] PCP - [facility] 05/12/21 [facility]Vale, JOY OPERATOR HELPER.HOSE BUILDER [address] [place] [address] Formerly [facility] 02/19/24 Patty Melton JOY OPERATOR HELPER.HOSE BUILDER [address] [place] [address] Intern Retail Family Medicine 08/27/24 Senior Adults Director Relationship Specialty Start Date End Date Jeovany Argueta DO [address] [place] [address] PCP - General Family Medicine 05/12/21 Vale Bullard, JOY OPERATOR HELPER.HOSE BUILDER [address] [place] [address] Intern Retail Family Medicine 02/19/24 Patty Melton, JOY OPERATOR HELPER.HOSE BUILDER [address] [place] [address] [facility] 08/27/24 Senior Adults Director Relationship Specialty Start Date End Date Jeovany Argueat DO [address] [place] [address] PCP - General Family Medicine 05/12/21 Vale Bullard, JOY OPERATOR HELPER.HOSE BUILDER [address] [place] [address] Intern Retail Family Medicine 02/19/24 Patty Melton, JOY OPERATOR HELPER.HOSE BUILDER [address] [facility] [address] Intern Retail Family Medicine 08/27/24 Senior Adults Director Relationship Specialty Start Date End Date Jeovany Argueta DO [address] [place] [place] [address] PCP - General Family Medicine 05/12/21 Vale Bullard, JOY OPERATOR HELPER.HOSE BUILDER [address] [place] [address] Intern Retail Family [facility] 02/19/24 Patty Melton, MIGUEL.HOSE BUILDER [address] [place] [address] Intern Retail Family [facility] 08/27/24 Team Status: Active Member Role/Relationship Status Dates Dr. Jeovany Argueta DO Primary care physician Active Team Status: Inactive Member Role/Relationship Status Dates Dr. Jeovany Argueta DO Primary care physician Active Start: December 18, 2024 End: December 18, 2024 Dr. Jeovany Argueta DO Referring Provider Active Start: December 18, 2024 End: December 18, 2024 Ami Kenny GRADES 1 6 TUTOR, GRADES 1 6 TUTOR-C Attending physician Active Start: December 18, 2024 End: December 18, 2024 Goals (unrecognized section and content) Goals may be documented in a n alternate sectionGoals may be documented in an alternate sectionGoals may be documented in an alternate sectionGoals may be documented in an alternate sectionGoals may be documented in an alternate section Reason for Visit (unrecogniz ed section and content) Reason Comments Patient Update Reason Comments URI Started , l ow grade fever, cough, nasal congestion coughing up greenish colored mucus, headache , ear pressuire Reason Comments Medication Problem Reason Comments Sore Throat Reason Comments Sore Throat Bilateral ear ache x 2 days Reason Comments requesting a change in ATB Reason Comments blood work request Reason Comments Lab Orders Reason Comments Results Reason Comments URI sx Reason Comments Sinus Problem Yellow/green sinus d rainage x 2 weeks Ear Problem Bilateral ear pain Chest Congestion Patient reports she feels like its moving into her chest- patient has asthma and she reports this is common on how it progresses for her. Reason Comments Chest Congestion Nasal congestion, pr essure and pain in sinuses and eyes and ears, SOB, productive cough x 5 days Reason Comments Patient Update Sinus Problem Reason Comments Cough With drainage & osorio estion x 10 days Reason Comments URI Reason Comments Insurance Authorization Reason Comments URI Reason Comments Patient Question re: labs Appointment Orders Reason Comments Patient Update Patient Question Reason Comments White Spots Reason Onset Date Comments Refill Request 09/26/2024 Out medication Reason Onset Date Comments Refill Request 09/26/2024 Out of medicatio n INFORMATION SOURCE (unrecogn ized section and content) DATE CREATED AUTHOR 09/09/2024 [facility] DATE CREATED AUTHOR AUTHOR'S ROSALBA MONTELONGO 01/13/2025 [facility] FOR RECORDS PERTAINING TO PATIENTS WHO ARE OR HAVE BEEN ENROLLED IN A CHEMICAL DEPENDENCY/SUBSTANCEABUSE PROGRAM, SOME INFORMATION MAY BE OMITTED. This clinical summary was aggregated from multiple sources. Caution should be exercised in using it in the provision of clinical care. This summary normalizes information from multiple sources, and as a consequence, information in this document may materially change the coding, format and clinical context of patient data. In addition, data may be omitted in some cases. CLINICAL DECISIONS SHOULD BE BASED ON THE PRIMARY CLINICAL RECORDS. [employer] provides no warranty or guarantee of the accuracy or completeness of information in this document.
[2025-02-12 06:33] LABS: Internal QC Validated? YES +Cl - CLEAR BKGD; Pregnancy, Urine Negative Negative; Record Kit Lot#,Urine Preg 0000980607
[2025-02-12] MEDS: Lactated Ringers 1,000 ML 15 ML IV (06:34)
--- NOTE | 2025-02-12 07:14 | PRE.ANES_ITS ---
ASA Classification* ASA Classification ASA Classification: 2 Assessment & Plan Anesthesia* Anesthesia Assessment Anesthesia Assessment: Discussed sedation and/or anesthesia options, risks, benefits, and alternatives with patient/parents/legal guardian/POA. Questions invited. The patient/parents/legal guardian/POA seems to understand and agrees to proceed with anesthesia plan. Reviewed the physical assessment, medical history, allergy history and patient home medications list prior to surgery/procedure/anesthetic and documented any changes. Performed airway and anesthesia risk assessments. Anesthesia Type Anesthesia Type: MAC History Source History Obtained from:: Patient and Chart Anesthesia Focused Assessment* Temperature: 98.0 F Pulse Rate: 61 Blood Pressure: 114/66 Respiratory Rate: 16 Pulse Ox: 100 Oxygen Delivery Method: Room Air Airway Assessment Mouth opens: >3 cm Mallampati Score: I Teeth Condition: Intact Neck Range of motion (ROM): Full ROM Labs Anesthesia Preop lab: CBC WBC, (4.4-11.0) 5.8 K/mm3 02/04/25, 16:09 RBC, (4.2-5.4) 3.85 M/mm3 L 02/04/25, 16:09 Hgb, (12.0-15.0) 11.9 g/dL L 02/04/25, 16:09 Hct, (37-47) 34.8 % L 02/04/25, 16:09 Plt Count, (150-450) 351 K/mm3 02/04/25, 16:09 CHEMISTRY Potassium, (3.5-5.1) 3.7 mmol/L 06/27/22, 04:51 Sodium, (136-145) 139 mmol/L 06/27/22, 04:51 Magnesium, (1.6-2.6) 1.7 mg/dL 06/27/22, 04:51 Phosphorus, (2.5-4.9) 2.1 mg/dL L 06/27/22, 04:51 BUN, (7-18) 5 mg/dL L 06/27/22, 04:51 Creatinine, (0.55-1.02) 0.53 mg/dL L 06/27/22, 04:51 Glucose, (74-106) 96 mg/dL 06/27/22, 04:51 TSH, (0.300-4.200) 1.350 uIU/mL 06/18/24, 14:40 COAG HCG, Quant, (<9 non-preg) 1 mIU/mL 01/18/17, 16:5 5 Urine Test Negative Negative Today, 06:10 Pre-Assessment Diagnosis/Proposed Procedure Planned Operative Procedure(s): (N/A) Hysteroscopy, D&C Symphion, Polypectomy Anesthesia History Anesthesia History - bacteriologist pharmaceutical: Anesthesia History - bacteriologist pharmaceutical Hx Hospitalization No 01/29/25 16:04 Any Problems With Anesthesia No 01/29/25 16:04 Cholinesterase deficiency No 01/29/25 16:04 You/Your Family Experience No 01/29/25 16:04 fever (hyperthermia) with Relationship Recent Exposure to Contagious No 06/26/22 02:51 Disease Does patient have nerve No 01/29/25 16:04 stimulator Patient instructed to have device shut off --Does patient have Pacemaker No 02/12/25 06:23 or ICD? When Was Last Pacemaker Check QUESTION #4 FULL TEXT: You/Your Family Experience fever (hyperthermia) with Anesthesia Last Oral Intake Last Oral intake: Last Oral Intake NPO since 21:30 02/12/25 06:23 Meds taken in AM with sips of No 02/12/25 06:23 water? Meds patient instructed to take am of surgery PONV PONV - bacteriologist pharmaceutical: PONV - bacteriologist pharmaceutical Female Yes 01/29/25 16:04 HX of Motion Sickness Yes 01/29/25 16:04 HX of N/V After Surgery No 01/29/25 16:04 Non-Smoker Yes 01/29/25 16:04 Duration of Surgery greater No 01/29/25 16:04 than 60 minutes Number of Risk Factors 3 01/29/25 16:04 PONV Score Moderate Risk 01/29/25 16:04 Height & Weight Height & Weight: Anesthesia: Height & Weight Height 5 ft 4 in 02/12/25 06:23 Weight: 64 kg 02/12/25 06:23 Body Mass Index (BMI) 24.2 02/12/25 06:23 Respiratory Assessment Respiratory Assessment - bacteriologist pharmaceutical: Respiratory Tract Infection Hx - bacteriologist pharmaceutical Hx Respiratory Tract Infection No 01/29/25 16:04 STOP Sleep Apnea STOP Sleep Apnea - bacteriologist pharmaceutical: STOP Sleep Apnea - bacteriologist pharmaceutical Hx Hypertension No 01/29/25 16:04 Hx Sleep Apnea No 01/29/25 16:04 CPAP BIPAP Do you snore loudly (louder No 01/29/25 16:04 than talking or can be heard Do you often feel tired/ No 01/29/25 16:04 fatigued/ sleepy during daytime? Has anyone observed you stop No 01/29/25 16:04 breathing during sleep? STOP Results Negative 01/29/25 16:04 QUESTION #5 FULL TEXT : Do you snore loudly (louder than talking or can be heard through closed doors)? 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 Specify any problems Hx of Preganancy in last 3 N/A 01/29/25 16:04 Months Nurse Filling Out Transfusion NBUCHER 01/29/25 16:04 & Questions: Date: 01/29/25 01/29/25 16:04 Time: 16:05 01/29/25 16:04 Patient unable to answer at this time (ie. confused, unrespo /Reproduction History /Reproductive History - bacteriologist pharmaceutical: /Reproductive Hx- bacteriologist pharmaceutical Hx Now No 01/29/25 16:04 Gestational Age (in weeks): EDC: Hx Hx Para Hx Section SAB No 02/04/25 16:07 Does the father of the baby or his family experience fever w Father of the baby Malignant Hypertension history comment Active Medications Active Medications: Current Medications Generic Name Dose Route Start Last Admin Trade Name Freq PRN Reason Stop Dose Admin Lactated Ringer's 1,000 mls @ 15 mls/hr 02/12/25 06:15 02/12/25 06:34 IV 15 mls/hr .Q48H ANA PAULA Administration PFSH Medical History Marijuana use Vitiligo Gastric reflux History of steroid therapy Back pain due to injury Injury of head and neck Substance abuse Alcohol abuse Anxiety Depression Former smoker Asthma Migraines Anxiety and depression Home Medications Medication Instructions Recorded Last Taken Type cyanocobalamin (vitamin B-12) 500 500 mcg PO DAILY@080 0 REPLACEMENT 01/18/13 01/18/13 History mcg tablet hydroxyzine HCl 10 mg tablet 10 mg PO TID PRN Anxiety 12/27/19 Unknown History lamotrigine 200 mg tablet 200 mg PO BID 05/01/20 Unkno wn History (Lamictal) naproxen 500 mg tablet 500 mg PO BID PRN pain #30 t abs 11/08/23 Unknown Rx ruxolitinib 1.5 % topical cream 1 applic topical BID P RN VITALIGO 07/20/24 Unknown History (Opzelura) Allergy/AdvReac Type Severity Reaction Status Date / Time prednisone AdvReac Swelling Verified 02/12/25 06:19 Family History Grandfather Cancer prostate Grandmother Cancer skin Brother Asthma Mother Autoimmune disease Surgical History History of partial colectomy History of appendectomy S/P breast biopsy, left delivery delivered H/O dilation and curettage ankle surgery History of tonsillectomy and adenoidectomy Social History Smoking Status: Former smoker alcohol intake: never substance use type: does not use caffeine: Yes what type of physical activity do you participate in: walking, running and yoga frequency: 5-6 times per week seatbelt use: always do you feel safe at home: Yes 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 Physical Exam Resp clear to auscultation bilaterally
--- NOTE | 2025-02-12 07:22 | PCM.HP.OB ---
HPI - General HPI Narrative Vital Signs 07/20/2508:54 12/18/2514:22 02/05/2516:03 Height 5 ft 4 in 5 ft 4 in 5 ft 4 in Weight: 138 lb 8 oz 138 lb 7 oz BMI 23.8 23.7 BP 119/80 123/82 H Intake Visit Reasons: D&C hysteroscopy polypectomy symphion [employer] Experience Strategy Required: No Is patient in pain?: No Allergies prednisone Adverse Reaction (Verified 02/04/25 16:07) Swelling Medications Medication Instructions Recorded Confirmed Type cyanocobalamin (vitamin B-12) 500 500 mcg PO DAILY@0800 REPLACEMENT 01/18/13 02/04/25 History mcg tablet hydroxyzine HCl 10 mg tablet 10 mg PO TID PRN Anxiety 12/27/19 02/04/25 History lamotrigine 200 mg tablet 200 mg PO BID 05/01/20 02/04/25 History (Lamictal) naproxen 500 mg tablet 500 mg PO BID PRN pain #30 tabs 11/08/23 02/04/25 Rx ruxolitinib 1.5 % topical cream 1 applic topical BID PRN VITALIGO 07/20/24 02/04/25 History (Opzelura) Post menopausal: No Patient : No : No PFSH Medical History Marijuana use Vitiligo Gastric reflux History of steroid therapy Back pain due to injury Injury of head and neck Substance abuse Alcohol abuse Anxiety Depression Former smoker Asthma Migraines Anxiety and depression Surgical History History of partial colectomy History of appendectomy S/P breast biopsy, left delivery delivered H/O dilation and curettage ankle surgery History of tonsillectomy and adenoidectomy Family History Grandfather Cancer prostate Grandmother Cancer skin Brother Asthma Mother Autoimmune disease Social History Smoking Status: Former smoker alcohol intake: never substance use type: does not use caffeine: Yes what type of physical activity do you participate in: walking, running and yoga frequency: 5-6 times per week seatbelt use: always do you feel safe at home: Yes 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 Menstrual History - Reports heavy, irregular menstrual bleeding described as "splotchy," with periods of heavy flow for two days, cessation, and then resumption of heavy bleeding. - Currently using condoms for prevention. - Denies interest in IUD or other hormonal contraceptives. Past Medical History - Vitiligo. - Denies any new chronic medical issues since the last visit. - Denies chest pain, shortness of breath, cough, or wheezing on a regular basis. - Denies bladder issues. Current Medications and Supplements - Lamictal. - Vistaril as needed. - Omzolara cream for vitiligo. Subjective Sections: Current Meds - Lamictal - Vistaril as needed - Omzolara cream topically PMHx - Vitiligo - Uterine polyp Social Hx - Sexual practices: Using condoms for prevention ROS: Gastrointestinal: (-) abdominal pain Genitourinary: (+) heavy menstrual bleeding, (+) irregular menses, (-) urinary symptoms all other systems reviewed and negative PhysicalExam: GENERAL: Pleasant; in no apparent distress CARDIOVASCULAR: normal heart sounds PULMONARY: normal inspiratory effort, normal breath sounds ABDOMEN: soft, non-tender, no masses NEURO: alert and oriented x3 EXTREMITIES: normal History 2 Elective abortions Hx Para 1 Spontaneous abortions Hx # Term Pregnancies Ectopic pregnancies Hx # Pregnancies Multiple births # of living children Past Pregnancies Del. Date Name GA/Weeks Outcome Route Bth Weight Gen Labor Lgth Anesthesia Del Locatn Provider FOB Unknown 2008 Mary live - full term Jaylon Coding Level of Care Code Off vis,est,level 4 Diagnoses Heavy menses N92.0 Assessment and Plan Assessment and Plan (1) Heavy menses: Status: Acute Comment: suspect polyp plan d and c hysteroscopy polypectomy symphion Plan Assessment/Plan: # Endometrial polyp (N84.0): - Scheduled hysteroscopic polypectomy and dilation and curettage on February 12 using the Symfion device for direct visualization and removal of the endometrial polyp. - Discussed risks including bleeding, infection, and anesthesia complications; patient consented and agreed to proceed. - No medication changes indicated; Omzolara cream for vitiligo is not expected to interfere with the procedure. - Instructed patient to use special antibacterial soap from the neck down the night before and morning of surgery to reduce infection risk. # Excessive and frequent menstruation with irregular cycle (N92.1): - Irregular and heavy menstrual flow persists; dilation and curettage is anticipated to help address abnormal uterine bleeding. - Advised that mild postoperative spotting may occur for up to one week. - Recommended use of ibuprofen or acetaminophen for postoperative cramping or discomfort. - Declined concomitant sterilization procedure and does not desire intrauterine device or other hormonal contraception. - Continues barrier protection (condoms) for prevention; test will be performed on the day of surgery. # Encounter for other preprocedural examination (Z01.818): - Reviewed overall health history; no new chronic medical conditions reported. - Physical examination, including cardiac and pulmonary auscultation, is unremarkable apart from an acute mild cold, expected to resolve before surgery. - Patient consents to blood product administration in a life-threatening emergency. - Provided instructions to fast (no food for 8 hours prior) and allow clear liquids only until 2 hours before the procedure; advised to avoid dairy or cream in beverages to prevent cancellation. - Patient will receive a phone call the day prior with exact surgical time and confirmed location information. Patient Instructions: - Your dilation and curettage with hysteroscopy and polypectomy is scheduled for February 12; the clinic will call you the day before with your exact arrival time. - No food for at least 8 hours before surgery; clear liquids (water, black tea, black coffee without cream) are allowed until 2 hours before. - Use the special antiseptic soap from your neck down the night before and the morning of surgery to reduce infection risk. - A test will be done on the day of surgery. - Continue using condoms for control; you have declined any hormonal methods or IUD insertion at this time. - You may go home the same day and return to normal activities by the next day. - Spotting on and off is normal for up to a week after the procedure. - For discomfort, take Tylenol or Motrin (ibuprofen) as needed. UPDATE- I have seen the patient and performed any clinically relevant updates to the history and physical exam. Shilpi Boyle MD [facility] Medical History Marijuana use Vitiligo Gastric reflux History of steroid therapy Back pain due to injury Injury of head and neck Substance abuse Alcohol abuse Anxiety Depression Former smoker Asthma Migraines Anxiety and depression Home Medications Medication Instructions Recorded Last Taken Type cyanocobalamin (vitamin B-12) 500 500 mcg PO DAILY@0800 REPLACEMENT 01/18/13 01/18/13 History mcg tablet hydroxyzine HCl 10 mg tablet 10 mg PO TID PRN Anxiety 12/27/19 Unknown History lamotrigine 200 mg tablet 200 mg PO BID 05/01/20 Unknown History (Lamictal) naproxen 500 mg tablet 500 mg PO BID PRN pain #30 tabs 11/08/23 Unknown Rx ruxolitinib 1.5 % topical cream 1 applic topical BID PRN VITALIGO 07/20/24 Unknown History (Opzelura) Allergy/AdvReac Type Severity Reaction Status Date / Time prednisone AdvReac Swelling Verified 02/12/25 06:19 Family History Grandfather Cancer prostate Grandmother Cancer skin Brother Asthma Mother Autoimmune disease Surgical History History of partial colectomy History of appendectomy S/P breast biopsy, left delivery delivered H/O dilation and curettage ankle surgery History of tonsillectomy and adenoidectomy Social History Smoking Status: Former smoker alcohol intake: never substance use type: does not use caffeine: Yes what type of physical activity do you participate in: walking, running and yoga frequency: 5-6 times per week seatbelt use: always do you feel safe at home: Yes 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 [employer] History 2 Elective abortions Hx Para 1 Spontaneous abortions Hx # Term Pregnancies Ectopic pregnancies Hx # Pregnancies Multiple births # of living children Past Pregnancies Del. Date Name GA/Weeks Outcome Route Bth Weight Infant Gen Labor Lgth Anesthesia Del Locatn Provider FOB Unknown 2008 Mary live - full term [place] Vital Signs Vital Signs Vital Signs: 02/12/25 06:23 02/12/25 06:23 02/12/25 06:23 Temperature 98.0 F Temperature Source Temporal Pulse Rate 61 Respiratory Rate 16 Respiratory Pattern Normal Blood Pressure 114/66 Blood Pressure Mean 82 Blood Pressure Source Monitor Blood Pressure Position Semi-Fowlers Blood Pressure Location Left Arm Baseline BP 114/66 Pulse Ox 100 Oxygen Delivery Method Room Air 02/12/25 07:19 Temperature 98.0 F Temperature Source Pulse Rate 61 Respiratory Rate 16 Respiratory Pattern Blood Pressure 114/66 Blood Pressure Mean Blood Pressure Source Blood Pressure Position Blood Pressure Location Baseline BP Pulse Ox 100 Oxygen Delivery Method Room Air Weight Weight: 141 lb 1.533 oz Body Mass Index (BMI) 24.2 Labs Labs Labs: Blood Type A POSITIVE Antibody Screen NEGATIVE Hct, (37-47) 34.8 % L Hgb, (12.0-15.0) 11.9 g/dL L Rubella IgG Antibody 85.7 IU/mL Hep Bs Antigen, (Negative) Negative Hepatitis C Ab (EIA), (0.0-0.9) <0.1 s/co ratio
--- NOTE | 2025-02-12 07:30 | EMB_PTH ---
PATIENT: HERON MAKI LOC: [facility] U#:[id number] AGE/SX: 40/F ROOM: RE02/12/[address]: Dr. Shilpi Boyle MD : 1985 BED: DIS: 02/12/2025 SPEC #: [id number] RECD: 02/12/25 08:23 STATUS: MERISSA RESukhdev #: [id number] KEKE: 02/12/25 07:[address]: Shilpi Boyle DEPT: SURGICAL PATHOLOGY RECD BY: Rocael Nguyen ENTERED: 02/12/25 10:46 SP TYPE: ENDOM BX/C OTHR DR: Dr. Jeovany Argueta, DO Tissues: A - Endometrium, NOS Procedures: Surgery Specimen Level IV HEADER OPERATION: Hysteroscopy, D&C, polypectomy PRE-OP DIAGNOSIS: Heavy menses TISSUE SUBMITTED: A- Polyp and endometrial lining MICROSCOPIC DIAGNOSIS A. Endometrium, curettage, polypectomy: - Proliferaative endometrium, mildly disordered. - Focal changes suggestive of endometrial polyp. MICROSCOPIC DESCRIPTION Slides are reviewed. GROSS DESCRIPTION A. Received in formalin labeled with the patient's name and date of . Designated as " polyp + endometrial lining" is a 6.5 x 3.8 x 0.4 cm aggregate of mercedes-pink irregular tissue fragments and clotted blood. Entirely submitted in 4 cassettes. PA 02/12/2025PT:[id number]
[2025-02-12] MEDS: Midazolam 2 MG/2 ML Syringe IV (07:32)
[2025-02-12] MEDS: Lidocaine 1% (5 ml sdv) 5 ML Vial 3 ML IV (07:33)
[2025-02-12] MEDS: Lactated Ringers 2,000 ML 2000 ML IV (07:36)
[2025-02-12] MEDS: dexMEDEtomidine 200 MCG/2 ML ML 8 MCG IV (07:45)
[2025-02-12] MEDS: Lidocaine 1% (30 ml sdv) 30 ML Vial (07:52)
[2025-02-12] MEDS: Ketorolac 30 MG/ML Syringe 15 MG IV (08:02)
--- NOTE | 2025-02-12 08:17 | PCM.POST.ANE ---
Anesthesia: Postop Eval I Current Vital Signs Temperature: 97.1 F Pulse Rate: 57 Blood Pressure: 99/59 Respiratory Rate: 16 Pulse Ox: 98 Oxygen Delivery Method: Room Air Assessment Airway patent: Yes Spontaneous unlabored respirations: Yes Mental status: Awake and Calm nausea: No Vomiting: No Anesthesia Complication: No Fluid Hydration Crystalloid volume administer (ml): 800 Total IV fluid infused: 800 Progress Note Anesthesia document: Postop Eval 1 completed: Yes
--- NOTE | 2025-02-12 08:28 | OP.PCM_ITS ---
Multi Select Codes Urinary/Genital Urinary/Genital CPT Codes: 08589 Hysteroscopy, Polypectomy, Symphion Operative Report (Standard) Operative Information Date of Procedure: 02/12/25 Pre-Operative Diagnosis: AUB Post-Operative Diagnosis: same large polyp Surgery/Procedure Performed: dilation and curettage hysteroscopy symphion polypectomy research program manager: No Type of Anesthesia: IV Sedation RN Documented Start/Stop Times: Operation Date: 02/12/25 07:30 Case Time Into Pre-Op 02/12/25 06:12 Out of Pre-Op 02/12/25 07:25 Anesthesia Start 02/12/25 07:30 Into Room 02/12/25 07:30 Procedure Start 02/12/25 07:49 Procedure End 02/12/25 08:02 Anesthesia End 02/12/25 08:07 Out of Room 02/12/25 08:07 Into Recovery 02/12/25 08:09 Procedure Start Time: 07:49 Procedure Stop Time: 08:02 Select all DRAINS/GRAFTS/IMPLANTS that apply: None Estimated Blood Loss: 25 Specimen collected: Yes Description of specimen(s) removed: endometrial curretings and polyp Description of surgery: Patient was prepped and draped in a normal sterile fashion under MAC anesthesia. A weighted speculum was placed in the vagina and the anterior lip of the cervix was grasped with a single-tooth tenaculum. A paracervical block was placed with 1% lidocaine. Cervix was progressively dilated to allow passage of a 7 mm hysteroscope. The lining was fully visualized and noted to have a large polyp present . Uterine sounded to 9 cm. Using the symphion device, the polyp was progressively removed without complications. Direct visual curettage was performed using the device , and all specimens were sent to pathology. All instruments were removed from the vagina and excellent hemostasis was noted. Patient was awoken and taken to recovery in stable condition. Surgical Findings: large endometrial polyp Complications Complications: No
--- NOTE | 2025-02-12 08:30 | PCM.DC ---
Discharge Instructions DC O2, CPAP, BIPAP needs Home O2 Discharge instructions: No Dressing / Incision Discharge Activity: Return to Normal Activity, May Shower and May Take a Tub Bath (after 1 week) May resume sexual activity in: 1-2 weeks Weight Bearing Status: Weight bearing as tolerated Lifting Restrictions: none Dressing / Incision Call your doctor if you observe: Fever of 101 or Higher, Using more than 1 pad per hour, Shortness of breath and Uncontrolled pain Follow Up Care Please Follow Up With: Shilpi Boyle MD When: Call [phone] to schedule appointment. Test Results: Test results from this visit will be discussed in further detail at your follow-up appointment, if applicable. Discharge Plan Admission Attending Provider: Shilpi Boyle Primary Care Provider: Jeovany Argueta Instructions Print Language: Estonian Discharge Orders/Prescriptions Prescriptions: No Action lamotrigine [Lamictal] 200 mg tablet 200 mg PO BID hydroxyzine HCl 10 mg tablet 10 mg PO TID PRN (Reason: Anxiety) naproxen 500 mg tablet 500 mg PO BID PRN (Reason: pain) Qty: 30 2RF Rx Instructions: administer with food or milk Opzelura 1.5 % cream 1 applic topical BID PRN (Reason: VITALIGO) cyanocobalamin (vitamin B-12) 500 MCG tablet 500 mcg PO DAILY@0800 Referrals / Follow Up: Jeovany Argueta DO [Primary Care Provider, Medical] Disposition Disposition (needs filled in before D/C Order can be placed): Home, Self Care
--- NOTE | 2025-02-12 20:48 | POSTOPAN2_ITS ---
Anesthesia Postop Eval I Sum Postop Eval Completion status Anesthesia document: Postop Eval 1 completed: Yes Anesthesia Postop Eval I Summary Anesthesia Postop Eval I Summary: Anesthesia Postop Eval I: Assessment Summary Airway patent Yes 02/12/25 08:18 SUPERVISOR FRAME SAMPLE AND PATTERN.SJAN Spontaneous unlabored Yes 02/12/25 08:18 SUPERVISOR FRAME SAMPLE AND PATTERN.ELIZABETH respirations Mental status Awake,Calm 02/12/25 08:18 SUPERVISOR FRAME SAMPLE AND PATTERN.SJAN nausea No 02/12/25 08:18 SUPERVISOR FRAME SAMPLE AND PATTERN.SJAN Vomiting No 02/12/25 08:18 SUPERVISOR FRAME SAMPLE AND PATTERN.ELIZABETH Anesthesia Postop Eval I: Fluid Summary Crystalloid volume administer 800 02/12/25 08:18 SUPERVISOR FRAME SAMPLE AND PATTERN.SJAN (ml) Colloids volume administered ( ml) Blood Product volume administered (ml) Total IV fluid infused 800 02/12/25 08:18 SUPERVISOR FRAME SAMPLE AND PATTERN.ELIZABETH Anesthesia Postop Eval I: Summary Notes Anesthesia Complication No 02/12/25 08:18 SUPERVISOR FRAME SAMPLE AND PATTERN.ELIZABETH Anesthesia Complication Comment: Post-operative progress note Anesthesia: Postop Eval II Evaluation Mental status: Awake and Calm Pain Level: 1 nausea: No Vomiting: No Complications Anesthesia Complication: No
--- NOTE | 2025-02-12 20:48 | PCM.POSTANE2 ---
Anesthesia Postop Eval I Sum Postop Eval Completion status Anesthesia document: Postop Eval 1 completed: Yes Anesthesia Postop Eval I Summary Anesthesia Postop Eval I Summary: Anesthesia Postop Eval I: Assessment Summary Airway patent Yes 02/12/25 08:18 ELEMENTARY TUTOR.SJAN Spontaneous unlabored Yes 02/12/25 08:18 ELEMENTARY TUTOR.ELIZABETH respirations Mental status Awake,Calm 02/12/25 08:18 ELEMENTARY TUTOR.SJAN nausea No 02/12/25 08:18 ELEMENTARY TUTOR.SJAN Vomiting No 02/12/25 08:18 ELEMENTARY TUTOR.ELIZABETH Anesthesia Postop Eval I: Fluid Summary Crystalloid volume administer 800 02/12/25 08:18 ELEMENTARY TUTOR.SJAN (ml) Colloids volume administered ( ml) Blood Product volume administered (ml) Total IV fluid infused 800 02/12/25 08:18 ELEMENTARY TUTOR.ELIZABETH Anesthesia Postop Eval I: Summary Notes Anesthesia Complication No 02/12/25 08:18 ELEMENTARY TUTOR.ELIZABETH Anesthesia Complication Comment: Post-operative progress note Anesthesia: Postop Eval II Evaluation Mental status: Awake and Calm Pain Level: 1 nausea: No Vomiting: No Complications Anesthesia Complication: No
== END 2025-02-12 09:19 | disposition home or self-care (01) ==
LOC: SDC 05:51 → AC 05:53
PROVIDERS: PCP Student in an Organized Health Care Education/Training Program; Referring Provider Obstetrics & Gynecology; Visit Provider Obstetrics & Gynecology
PROC: 0UB98ZZ Excision of Uterus, Via Natural or Artificial Opening Endoscopic (ICD-10-PCS; CPT 58558; principal; 2025-02-12 07:15)
DX: N84.0 Polyp of corpus uteri (principal); Z87.891 Personal history of nicotine dependence; N92.1 Excessive and frequent menstruation with irregular cycle; K21.9 Gastro-esophageal reflux disease without esophagitis; J45.909 Unspecified asthma, uncomplicated; N93.9 Abnormal uterine and vaginal bleeding, unspecified
CPT/HCPCS: 58558; 00952; 36415; 81025; 85027; 86850; 86900; 86901; 88305; J2405